=== PATIENT | female | born 1955 | race Caucasian/White ===

== ENCOUNTER → 2017-07-17 07:44 | Outpatient (CLI) | payer OTHER, SELFPAY ==
--- NOTE | 2017-07-17 07:47 | BI_ITS ---
MAMMOGRAPHY - BILATERAL SCREENING REASON FOR EXAM: Female, 61 years old. Routine annual screening examination. PERTINENT HISTORY: Mother with breast cancer. TECHNIQUE: Digital bilateral breast yemi (3D mammographic acquisition) in the CC and MLO projections. 2-D mediolateral oblique (MLO) and craniocaudad (CC) views of both breasts were obtained. CAD: Full Field Digital Mammography with Computer Added Detection was performed. COMPARISON: Comparison is made with prior study dated April 26, 2016 and March 04, 2015. FINDINGS: Breast Composition: There are scattered areas of fibroglandular density. There are no dominant masses or suspicious calcifications. No other significant abnormalities are identified. There has been no significant change since the prior study. BI/SCREENING MAMM (CAD), BILAT IMPRESSION: Stable bilateral screening mammogram. Yearly follow-up mammogram recommended. (A) ASSESSMENT CATEGORY: BIRADS Category 1: Negative. A letter regarding these results will be sent to the patient by the facility within 30 days. Approximately 10% of breast cancers are not detected by mammography. A normal mammogram should not delay biopsy of a clinically suspicious abnormality. [id number] Electronically Signed: Rico Finley MD at 9:13 EDT Tel [phone], Service support ,
== END ==
PROVIDERS: Family Provider Family Medicine; PCP Family Medicine; Visit Provider Specialist
DX: Z12.31 Encounter for screening mammogram for malignant neoplasm of breast (principal)
CPT/HCPCS: 77063; 77067

== ENCOUNTER → 2017-10-15 07:25 | Outpatient (CLI) | payer OTHER, SELFPAY ==
[2017-10-15 10:37] LABS: Estradiol 72.9 pg/mL; Free T3 5.9 pg/mL (2.18-3.98); Thyroid Stim Hormone (TSH) 0.09 uIU/mL (0.358-3.74)
[2017-10-16 11:19] LABS: DHEA Sulfate 52.9 ug/dL (29.4-220.5)
[2017-10-16 13:01] LABS: Progesterone Level 33.96 ng/mL (See Comment); Vitamin B12 1864 pg/mL (211-911); Vitamin D,25 Hydroxy 48.1 ng/mL (29.95-100.01)
== END ==
PROVIDERS: Family Provider Family Medicine; PCP Family Medicine; Visit Provider Obstetrics & Gynecology
DX: N95.8 Other specified menopausal and perimenopausal disorders (principal); E03.9 Hypothyroidism, unspecified; R53.83 Other fatigue
CPT/HCPCS: 36415; 82306; 82607; 82627; 82670; 84144; 84403; 84443; 84481; 82626

== ENCOUNTER → 2017-11-18 08:05 | Outpatient (CLI) | payer OTHER, SELFPAY ==
[2017-11-18 11:01] LABS: Free T3 2.9 pg/mL (2.18-3.98); Thyroid Stim Hormone (TSH) 0.25 uIU/mL (0.358-3.74)
[2017-11-19 10:20] LABS: DHEA Sulfate 64.5 ug/dL (29.4-220.5)
== END ==
PROVIDERS: Family Provider Family Medicine; PCP Family Medicine; Visit Provider Obstetrics & Gynecology
DX: R53.83 Other fatigue (principal); E03.9 Hypothyroidism, unspecified
CPT/HCPCS: 36415; 82627; 84443; 84481; 82626

== ENCOUNTER → 2018-07-16 07:49 | Outpatient (CLI) | payer OTHER, SELFPAY ==
[2018-07-16 10:40] LABS: Progesterone Level 31.39 ng/mL (See Comment); Vitamin D,25 Hydroxy 29.5 ng/mL (29.95-100.01)
[2018-07-16 10:42] LABS: Estradiol 77.1 pg/mL; Free T3 2.7 pg/mL (2.18-3.98); Thyroid Stim Hormone (TSH) 1.81 uIU/mL (0.358-3.74)
[2018-07-17 16:37] LABS: DHEA Sulfate 68.9 ug/dL (29.4-220.5)
== END ==
PROVIDERS: Family Provider Family Medicine; PCP Family Medicine; Referring Provider Specialist; Visit Provider Specialist
DX: R53.81 Other malaise (principal); E03.8 Other specified hypothyroidism; N95.1 Menopausal and female climacteric states
CPT/HCPCS: 36415; 82306; 82627; 82670; 84144; 84403; 84443; 84481; 82626

== ENCOUNTER → 2018-07-21 14:47 | Outpatient (CLI) | payer OTHER, SELFPAY ==
[2018-07-21 17:49] LABS: ALB/GLOB Ratio 1.2 RATIO (0.9-2.4); AST(SGOT) 35 U/L (15-37); Alanine Aminotransfer ALT/SGPT 49 U/L (13-56); Albumin, Serum 3.7 g/dL (3.2-5.0); Alkaline Phosphatase 69 U/L (45-117); Anion Gap 4 (5-15); BUN 19 mg/dL (7-18); BUN/Creat Ratio 17.3 RATIO (10-20); Calcium,Total 9.1 mg/dL (8.5-10.1); Chloride 105 mmol/L (98-107); EST Glomerular Filtration Rate 54 mL/min (>60); Est Glom Filt Rate - Afr Amer 65 mL/min (>60); Globulin 3.2 g/dL (2.2-4.2); Glucose 119 mg/dL (74-106); Lipase 165 U/L (73-393); Potassium 4.4 mmol/L (3.5-5.1); Protein, Total 6.9 g/dL (6.4-8.2); Sodium Level 137 mmol/L (136-145)
[2018-07-21 18:00] LABS: Absolute Lymphocyte Count 2.82 X10^3/ul (0.83-4.51); Absolute Neutrophil Count 4.9 X10^3/uL (2.0-7.7); Basophil# 0.03 X10^3/uL; Basophil% 0.4 % (0-1); Eosinophils% 1.2 % (0-5); Hematocrit 46.7 % (37-47); Hemoglobin 15.6 g/dl (12.0-15.0); Lymphocyte # 2.82 X10^3/ul (4.0); Lymphocyte % 34.7 % (19-41); Mean Corp Hgb Conc 33.4 g/gl (32-36); Mean Corpuscular Hgb 29.9 pg (27.0-32.0); Mean Corpuscular Volume 89.6 fL (81-99); Mean Platelet Vol. 10.4 fl (6.2-12.0); Monocyte% 3.7 % (0-10); Neutrophil # 4.87 X10^3/uL (2.7-7.7); Neutrophil % 59.9 % (47-70); POSITIVE COUNT NO; POSITIVE DIFFERENTIAL NO; POSITIVE MORPHOLOGY NO; Platelet Count 294 K/mm3 (150-450); RBC Distribution Width CV 13.8 % (11.6-14.6); RBC Distribution Width SD 45.4 fl (35.1-43.9); Red Blood Count 5.21 M/mm3 (4.2-5.4); White Blood Count 8.1 K/mm3 (4.4-11.0)
== END ==
PROVIDERS: Family Provider Family Medicine; PCP Family Medicine; Visit Provider Family Medicine
DX: R11.0 Nausea (principal); R53.83 Other fatigue
CPT/HCPCS: 36415; 80053; 83690; 85025

== ENCOUNTER → 2018-08-04 07:50 | Outpatient (CLI) | payer OTHER, SELFPAY ==
--- NOTE | 2018-08-04 07:52 | ECHOCS_ITS ---
Version 2 Reason For Study: SOB Procedure This was a 2D Doppler, Color Flow transthoracic echocardiogram. The study was technically difficult. Contrast injection was performed. Exam performed in department. Left Ventricle Normal LV size. Left ventricular systolic function is normal. The estimated ejection fraction is 55 %. Stage 1 diastolic dysfunction. No regional wall motion abnormalities noted. Right Ventricle Normal RV size. Normal systolic function. Atria Normal left atrium. Normal right atrium. Probable patent foramen ovale. Mitral Valve Normal mitral valve. Tricuspid Valve Normal tricuspid valve. Aortic Valve The aortic valve is not well visualized. Pulmonic Valve Normal pulmonic valve. Great Vessels Normal aortic root. The pulmonary artery is normal size. Normal inferior vena cava. Pericardium/Pleural No pericardial effusion. Medication 22 gauge I.V. with prn adaptor inserted into right arm. Diluted definity 3.5ml given slow IV push to enhance endocardial definition. Performed a rapid injection of agitated mix of 9 cc saline and 1cc air to assess for atrial septal defect. MMode/2D Measurements & Calculations LVIDd: 4.1 cm IVSd: 0.86 cm Ao root diam: 2.8 cm LVIDs: 2.9 cm LVPWd: 0.85 cm RVDd: 2.6 cm FS: 28.7 % LAV(MOD-bp): 31.8 ml EDV(MOD-sp4): 100.6 ml EDV(MOD-sp2): 80.9 ml LAV(MOD-bp) Indexed: 16.1 ml/m2 ESV(MOD-sp4): 50.6 ml EF(MOD-sp2): 54.7 % LAV(MOD-sp2): 45.2 ml EF(MOD-sp4): 49.7 % LAV(MOD-sp4): 20.6 ml SV(MOD-sp4): 50.0 ml SV(MOD-sp2): 44.3 ml LA A4 area: 10.8 cm2 LA dimension(2D): 2.8 cm RA A4 area: 9.3 cm2 Time Measurements MV dec time: 0.20 sec Doppler Measurements & Calculations MV E max tiago: 54.0 cm/sec Lat Peak E' Tiago: 8.3 cm/sec Med Peak E' Tiago: 9.6 cm/sec MV A max tiago: 80.1 cm/sec E/E' lat: 6.5 E/E' med: 5.7 MV E/A: 0.67 MV V2 max: 102.3 cm/sec Ao V2 max: 128.9 cm/sec LV V1 max: 91.8 cm/sec MV max P.2 mmHg Ao max P.6 mmHg LV V1 max P.4 mmHg MV V2 mean: 64.0 cm/sec MV mean P.8 mmHg MV V2 VTI: 16.9 cm MV P1/2t-pr_phl: 95.6 msec Interpretation Summary Normal LV size. Left ventricular systolic function is normal. The estimated ejection fraction is 55 %. Stage 1 diastolic dysfunction. Contrast injection was performed. Ordering Physician: GLORIA FARMER Referring Physician: GLORIA FARMER Performed By: Margarita Mantilla, MADDY, RVT
== END ==
PROVIDERS: Family Provider Family Medicine; PCP Family Medicine; Referring Provider Family Medicine; Visit Provider Family Medicine
DX: R06.00 Dyspnea, unspecified (principal); I51.7 Cardiomegaly; R06.02 Shortness of breath
CPT/HCPCS: 93306; Q9957; A4216; C8929

== ENCOUNTER → 2018-08-15 08:06 | Outpatient (CLI) | payer OTHER, SELFPAY ==
--- NOTE | 2018-08-15 08:08 | BI_ITS ---
MAMMOGRAPHY - BILATERAL SCREENING REASON FOR EXAM: Female, 63 years old. Routine annual screening examination. PERTINENT HISTORY: Mother with breast cancer. TECHNIQUE: Digital bilateral breast yemi (3D mammographic acquisition) in the CC and MLO projections. 2-D mediolateral oblique (MLO) and craniocaudad (CC) views of both breasts were obtained. CAD: Full Field Digital Mammography with Computer Added Detection was performed. COMPARISON: Comparison is made with prior examination dated July 17, 2017 and April 26, 2016. FINDINGS: Breast Composition: There are scattered areas of fibroglandular density. There are no dominant masses or suspicious calcifications. No other significant abnormalities are identified. There has been no significant change since the prior study. BI/SCREENING MAMM (CAD), BILAT IMPRESSION: Stable bilateral screening mammogram. Yearly follow-up mammogram recommended. (A) ASSESSMENT CATEGORY: BIRADS Category 2: Benign. A letter regarding these results will be sent to the patient by the facility within 30 days. Approximately 10% of breast cancers are not detected by mammography. A normal mammogram should not delay biopsy of a clinically suspicious abnormality. [id number] Electronically Signed: Rico Finley, at 10:00 EDT , Service support ,
== END ==
PROVIDERS: Family Provider Family Medicine; PCP Family Medicine; Referring Provider Specialist; Visit Provider Specialist
DX: Z12.31 Encounter for screening mammogram for malignant neoplasm of breast (principal)
CPT/HCPCS: 77063; 77067

== ENCOUNTER → 2018-10-09 08:13 | Outpatient (CLI) | payer OTHER, SELFPAY ==
--- NOTE | 2018-10-09 08:35 | BD_ITS ---
STUDY: DUAL ENERGY X-RAY ABSORPTIOMETRY / DXA REASON FOR EXAM: Female, 63 years old. The patient is postmenopausal. Loss of height. TECHNIQUE: Bone Mineral Density (BMD) measurements of lumbar spine and bilateral hips were obtained. COMPARISON: None. FINDINGS: Lumbar Spine (L1-L4): g/cm2 (1.179) / T-score (0.1) / Z-score (1.4) Findings are suggestive of normal bone density with a low fracture risk. Left Femur Total: g/cm2 (1.014) / T-score (0.1) / Z-score (1.0) Left Femoral Neck: g/cm2 (1.043) / T-score (0.0) / Z-score (1.3) Right Femur Total: g/cm2 (1.006) / T-score (0.0) / Z-score (1.0) Right Femoral Neck: g/cm2 (0.994) / T-score (-0.3) / Z-score (1.0) BD/Dexa Bone Density Study IMPRESSION: The patient is considered normal as outlined below according to World [employer] Organization (WHO) criteria with a low fracture risk. Reference Information: The T-score is the number of standard deviations above or below the standard which is normal for young adults at their peak bone mineral density. The World Health Organization (WHO) interprets the T-scores as follows: Above -1 Normal bone density Between -1 and -2.5 Osteopenia Equal to / or below -2.5 Osteoporosis As a practical clinical guideline, osteopenia may be graded as follows: Mild -1 through -1.5 Moderate -1.6 through -2.0 Severe -2.1 through -2.4 The Z-score is the number of standard deviations above or below age-matched controls. A Z-score of less than -1.5 would be considered abnormal. References: 1. NIH Osteoporosis and Related Bone Diseases http://www.osteo.org 2. International Society for Clinical Densitometry http://www.iscd.org 3. National Osteoporosis Foundation http://www.nof.org Electronically Signed: Rico Finley, at 10:14 EDT , Service support ,
== END ==
PROVIDERS: Family Provider Family Medicine; PCP Family Medicine; Referring Provider Family Medicine; Visit Provider Family Medicine
DX: R29.890 Loss of height (principal)
CPT/HCPCS: 77080

== ENCOUNTER → 2018-10-29 10:33 | Outpatient (CLI) | payer OTHER, SELFPAY ==
--- NOTE | 2018-10-29 10:38 | RAD_ITS ---
STUDY: X-RAY - LUMBAR SPINE REASON FOR EXAM: Female, 63 years old. Low back pain TECHNIQUE: 5 view(s) of the lumbar spine were obtained. COMPARISON: None FINDINGS: Normal lumbar lordosis. Mild levoscoliosis of the lower lumbar spine. There is a normal alignment of the vertebrae. There is multilevel endplate spondylosis of the lumbar vertebrae. There is multi-level degenerative disc disease with multi-level disc space narrowing. The soft tissue structures are unremarkable. RAD/L/S Spine Min 4 Views IMPRESSION: Mild levoscoliosis with degenerative disc disease. Electronically Signed: Elia Solano MD at 10:58 EDT Tel , Service support ,
== END ==
PROVIDERS: Family Provider Family Medicine; PCP Family Medicine; Referring Provider Family Medicine; Visit Provider Family Medicine
DX: M54.16 Radiculopathy, lumbar region (principal)
CPT/HCPCS: 72110

== ENCOUNTER → 2018-11-06 07:34 | Outpatient (CLI) | payer OTHER, SELFPAY ==
[2018-11-06 10:41] LABS: Free T3 2.3 pg/mL (2.18-3.98); T4 Free Direct 0.78 ng/dL (0.76-1.46); Thyroid Stim Hormone (TSH) 1.48 uIU/mL (0.358-3.74)
== END ==
PROVIDERS: Family Provider Family Medicine; PCP Family Medicine; Referring Provider Specialist; Visit Provider Specialist
DX: E02 Subclinical iodine-deficiency hypothyroidism (principal)
CPT/HCPCS: 36415; 84439; 84443; 84481

== ENCOUNTER → 2018-12-23 08:07 | Outpatient (CLI) | payer OTHER, SELFPAY ==
[2018-12-23 10:39] LABS: Estradiol 78.9 pg/mL; Free T3 5.7 pg/mL (2.18-3.98); Thyroid Stim Hormone (TSH) 0.28 uIU/mL (0.358-3.74)
[2018-12-23 10:54] LABS: Progesterone Level 32.36 ng/mL (See Comment)
== END ==
PROVIDERS: Family Provider Family Medicine; PCP Family Medicine; Referring Provider Obstetrics & Gynecology; Visit Provider Obstetrics & Gynecology
DX: E03.8 Other specified hypothyroidism (principal); N95.1 Menopausal and female climacteric states
CPT/HCPCS: 36415; 82670; 84144; 84403; 84443; 84481

== ENCOUNTER → 2019-03-19 08:17 | Outpatient (CLI) | payer OTHER, SELFPAY ==
[2019-03-21 13:29] LABS: Giardia Lamblia, Stool EIA Negative (Negative)
== END ==
PROVIDERS: Family Provider Family Medicine; PCP Family Medicine; Visit Provider Family Medicine
DX: K57.92 Diverticulitis of intestine, part unspecified, without perforation or abscess without bleeding (principal); R19.7 Diarrhea, unspecified
CPT/HCPCS: 82274; 83630; 87329; 87493; 87506

== ENCOUNTER → 2019-03-31 12:22 | Outpatient (CLI) | payer OTHER, SELFPAY ==
[2019-03-31 14:45] LABS: Free T3 3.1 pg/mL (2.18-3.98)
== END ==
PROVIDERS: Family Provider Family Medicine; PCP Family Medicine; Referring Provider Specialist; Visit Provider Specialist
DX: E03.8 Other specified hypothyroidism (principal)
CPT/HCPCS: 36415; 84481

== ENCOUNTER → 2019-04-03 16:01 | Outpatient (CLI) | payer OTHER, SELFPAY ==
[2019-04-03 17:43] LABS: Hemoglobin 15.1 g/dL (12.0-15.0); Mean Corp Hgb Conc 32.8 g/dL (32-36); Mean Corpuscular Hgb 29.6 pg (27.0-32.0); Mean Corpuscular Volume 90.2 fL (81-99); Mean Platelet Vol. 10.1 fl (6.2-12.0); Platelet Count 327 K/mm3 (150-450); RBC Distribution Width SD 46.5 fl (35.1-43.9); White Blood Count 9.3 K/mm3 (4.4-11.0)
[2019-04-03 18:07] LABS: Erythrocyte Sedimentation Rate 8 mm/hr (0-30)
[2019-04-06 16:07] LABS: Endomysial Antibody IgA Negative (Negative)
[2019-04-07 09:37] LABS: Immunoglobulin A 175 mg/dL (87-352); t-Transglutaminase IgA <2 U/mL (0-3)
== END ==
PROVIDERS: Family Provider Family Medicine; PCP Family Medicine; Referring Provider Internal Medicine Gastroenterology; Visit Provider Internal Medicine Gastroenterology
DX: R19.7 Diarrhea, unspecified (principal)
CPT/HCPCS: 36415; 82784; 83516; 85027; 85652; 86255

== ENCOUNTER → 2019-08-18 07:30 | Outpatient (CLI) | payer OTHER, SELFPAY ==
[2019-08-18 10:40] LABS: Anion Gap 8 (5-15); BUN 15 mg/dL (7-18); BUN/Creat Ratio 17.2 RATIO (10-20); Calcium,Total 8.8 mg/dL (8.5-10.1); Chloride 108 mmol/L (98-107); Creatinine, Serum 0.87 mg/dL (0.55-1.02); EST Glomerular Filtration Rate 70 mL/min (>60); Est Glom Filt Rate - Afr Amer 85 mL/min (>60); Glucose 90 mg/dL (74-106); Potassium 3.9 mmol/L (3.5-5.1); Sodium Level 141 mmol/L (136-145)
== END ==
PROVIDERS: PCP Family Medicine; Referring Provider Family Medicine; Visit Provider Family Medicine
DX: R33.9 Retention of urine, unspecified (principal)
CPT/HCPCS: 36415; 80048

== ENCOUNTER → 2019-08-27 07:51 | Outpatient (CLI) | payer OTHER, SELFPAY ==
--- NOTE | 2019-08-27 07:54 | US_ITS ---
STUDY: ABDOMINAL ULTRASOUND REASON FOR EXAM: Female, 64 years old. ABDOMINAL PAIN TECHNIQUE: Transabdominal ultrasound was performed with real-time and static sears scale imaging. TECHNICAL QUALITY: Adequate. COMPARISON: None. FINDINGS: Liver: The liver measures 15.9 cm. There is normal echogenicity of the liver. The bile ducts are within normal limits. There is hepatic color flow. The direction of portal flow is hepatopetal. There is no demonstrated mass lesion. Portal vein measurement: Gallbladder: Normal distended gallbladder. The gallbladder wall measures 3.0 mm. There is a negative sonographic Tracey''s sign. There is no pericholecystic fluid. There are no gallstones. Common Bile Duct (C.B.D.): The common bile duct measures 5.0 mm. Pancreas: Normal size of the head, body and tail of the pancreas. There is normal echogenicity of the pancreas. There is no demonstrated pancreatic mass or cyst. Spleen: Normal size of the spleen. The spleen measures 10.2 cm x 4.5 cm x 4.8 cm. Right Kidney: Normal size of the right kidney. The right kidney measures 10.1 cm x 5.5 cm x 4.5 cm. Normal renal cortex. The right cortex measures 1.5 cm. There is no demonstrated renal mass or cyst. There is no right hydronephrosis. Left Kidney: Normal size of the left kidney. The left kidney measures 10.2 cm x 4.3 cm x 5.5 cm. Normal renal cortex. The left cortex measures 1.9 cm. There is no demonstrated renal mass or cyst. There is no left hydronephrosis. Aorta: Unremarkable I.V.C.: The IVC is patent. There is no ascites. US/Abdomen Complete IMPRESSION: Normal abdominal ultrasound examination. Electronically Signed: Rico Finley, at 13:04 EDT , Service support ,
== END ==
PROVIDERS: PCP Family Medicine; Referring Provider Family Medicine; Visit Provider Family Medicine
DX: R10.9 Unspecified abdominal pain (principal)
CPT/HCPCS: 76700

== ENCOUNTER → 2020-02-03 15:37 | Outpatient (CLI) | payer OTHER, SELFPAY ==
--- NOTE | 2020-02-03 15:39 | BI_ITS ---
MAMMOGRAPHY - BILATERAL SCREENING REASON FOR EXAM: Female, 64 years old. Routine annual screening examination. PERTINENT HISTORY: Mother with breast cancer. TECHNIQUE: Digital bilateral breast vida (3D mammographic acquisition) in the CC and MLO projections. 2-D mediolateral oblique (MLO) and craniocaudad (CC) views of both breasts were obtained. CAD: Full Field Digital Mammography with Computer Added Detection was performed. COMPARISON: Comparison is made with prior study dated 08/15/2018 and 07/17/2017. FINDINGS: Breast Composition: There are scattered areas of fibroglandular density. There are no dominant masses or suspicious calcifications. Questionable focal area of architectural distortion in the upper lateral aspect of the right breast. The patient will be recalled for additional views including 90 degree lateral and compression spot views. No other significant abnormalities are identified. BI/SCREEN MAMM (CAD) W/VIDA BILAT IMPRESSION: Proximal focal area of architectural distortion in the upper outer aspect of the right breast as described. The patient will be recalled for additional views. Recall Side: Right Breast ASSESSMENT CATEGORY: BIRADS Category 0: Incomplete. Need additional imaging evaluation. A letter regarding these results will be sent to the patient by the facility within 30 days. Approximately 10% of breast cancers are not detected by mammography. A normal mammogram should not delay biopsy of a clinically suspicious abnormality. [id number] Electronically Signed: Rico Finley, at 8:26 EST , Service support ,
== END ==
PROVIDERS: PCP Family Medicine; Referring Provider Specialist; Visit Provider Specialist
DX: Z12.31 Encounter for screening mammogram for malignant neoplasm of breast (principal); Z80.3 Family history of malignant neoplasm of breast
CPT/HCPCS: 77063; 77067

== ENCOUNTER → 2020-02-10 14:20 | Outpatient (CLI) | payer OTHER, SELFPAY ==
--- NOTE | 2020-02-10 14:22 | BI_ITS ---
MAMMOGRAPHY - UNILATERAL DIAGNOSTIC: RIGHT BREAST REASON FOR EXAM: Female, 64 years old. Abnormal screening mammogram. PERTINENT HISTORY: Mother with breast cancer. TECHNIQUE: Compression magnification views of the right breast were obtained. CAD: Full Field Digital Mammography with Computer Added Detection was performed. COMPARISON: Comparison is made with prior mammogram dated 02/03/2020. FINDINGS: Breast Composition: There are scattered areas of fibroglandular density. Persistent focal area of architectural distortion in the upper lateral aspect of the right breast with possible tiny microcalcifications. Correlation with ultrasound is recommended. No other significant abnormalities are identified. BI/DIAG MAMM W/CAD, UNILAT IMPRESSION: Persistent architectural distortion in the upper lateral aspect of the right breast as described. Correlation with ultrasound is recommended. ASSESSMENT CATEGORY: BIRADS Category 0: Incomplete. Need additional imaging evaluation. A letter regarding these results will be sent to the patient by the facility within 30 days. Approximately 10% of breast cancers are not detected by mammography. A normal mammogram should not delay biopsy of a clinically suspicious abnormality. Electronically Signed: Rico Finley, at 15:18 EST , Service support ,
--- NOTE | 2020-02-10 14:24 | US_ITS ---
STUDY: ULTRASOUND BREAST - RIGHT REASON FOR EXAM: Female, 64 years old. Abnormal screening mammogram. TECHNIQUE: Axial and longitudinal images of the RIGHT breast were performed with a high resolution ultrasound transducer. # OF IMAGES: 40 COMPARISON: Comparison is made with prior mammogram dated 02/03/2020 and 02/10/2020. FINDINGS: RIGHT Breast: There is a 1 cm x 1.1 cm x 1 cm spiculated nodule at the 10 o''clock position of the breast at 3 cm from the nipple. A biopsy recommended. Incidental note is made of a 4 mm x 4 mm x 4 mm cyst adjacent to the spiculated nodule. US/Breast Limited Unilateral IMPRESSION: 1 cm x 1.1 cm x 1 cm spiculated nodularity at the 10 o''clock position of the breast at 3 cm from nipple. A biopsy is recommended. ASSESSMENT CATEGORY: BIRADS Category 5: Highly Suggestive of Malignancy - Appropriate Action Should Be Taken. A letter regarding these results will be sent to the patient by the facility within 30 days. Electronically Signed: Rico Finley, at 15:35 EST , Service support ,
== END ==
PROVIDERS: PCP Family Medicine; Referring Provider Specialist; Visit Provider Specialist
DX: R92.8 Other abnormal and inconclusive findings on diagnostic imaging of breast (principal); Z80.3 Family history of malignant neoplasm of breast
CPT/HCPCS: 76642; 77065

== ENCOUNTER → 2020-03-02 12:03 | Outpatient (CLI) | payer OTHER, SELFPAY ==
--- NOTE | 2020-03-02 | IMM_PTH ---
PATIENT: LAI WEST LOC: [facility] U#:[id number] AGE/SX: 69/F ROOM: RE03/02/[address]: Dr. Kain Khalil MD : 1955 BED: DIS: SPEC #: [id number] RECD: 03/03/20 13:19 STATUS: LIO RECharanjit #: [id number] JANEEN: 03/02/20 00:[address]: Kain Khalil DEPT: IMMUNOHISTOCHEMISTRY RECD BY: Sofia White ENTERED: 03/03/20 13:20 SP TYPE: IMMUNO OTHR DR: Dr. Eddie Chappell MD Tissues: A - Right breast, NOS B - Axilla, NOS Procedures: CALPONIN-1 (add) CK5-6 (add) CK7 (add) CK8 (add) CONNOLLY-2 (add) E-CAD (add) HER2 MARYAN (add) NC (add) Pankeratin (initial) P40 (add) ER (initial) PHYSICIAN & INSTITUTION [address] [address] SPECIMEN INFORMATION: Tissue Source: A - Right breast tissue, B - Right axillary tissue Clinical Info: Abnormal right mammogram Specimen Number: [id number] A & B CPT code: 71490 x2, 71731 x8, 11674 x3 METHODOLOGY: Deparaffinized sections of prefer/formalin-fixed tissue or PAP/DQ stained slides are incubated with monoclonal/polyclonal antibodies/oligonucleotide probes. Localization is made via biotin free immunoperoxidase method. Appropriate controls are performed and reacted as expected. Results on target cell population are indicated in the following table: RESULTS: ANTIBODY / CLONE RESULT Block A P53 (DO-7) positive, 3% Ki-67 (30-9) positive, 10% CK8 (93fqzuT45) positive CK5-6 (D5 & 1684) negative Calponin-1 (VO560T) negative P40 (BC28) negative E-Cad (ECH-6) positive CONNOLLY-2 (SP21) positive MORPHOMETRIC ANALYSIS ER (clone 6F11) >95%, strong intensity NC (clone 16/1E2) >95%, strong intensity Her-2Neu (clone CB11) 1+ Block B AE1-3 (AE1/AE3/PCK26) negative CK7 (OV-TL12/30) negative The prognostic test for HER2 is performed on formalin-fixed paraffin embedded tissue. A 3+ (positive) staining pattern is defined as intense, homogeneous, complete, circumferential membranous staining in >10% of contiguous tumor cells. A similar weak (2+) staining pattern is interpreted as equivocal. LONG follow-up testing is recommended for all equivocal cases. Positivity/negativity for ER/NC is reported if > or < 1% of the tumor cells are immuno- reactive, respectively. The ASCO/CAP criteria is used for scoring. Reference: Journal of Clinical Oncology, 2013; 31:8799-4928 & 2010; 16:6824-3406. Duration of fixation: 10 Hrs; Sample Adequate: Yes. These assays have not been validated on decalcified tissues. Results should be interpreted with caution given the likelihood of false negativity on decalcified specimens. These tests were developed and their performance characteristics determined by [facility]. They may not have been cleared or approved by the U.S. Food and Drug Administration. The FDA has determined that such clearance or approval is not necessary. The above immunohistochemical/dualISH markers are ordered and reviewed by the Pathologist. INTERPRETATION: A. Right breast tissue, core biopsy: Invasive ductal carcinoma. Positive for estrogen receptors (favorable prognostic indicator). Positive for progesterone receptors (favorable prognostic indicator). Negative for overexpression of QAF0bps. B. Right axillary tissue, core biopsy: No evidence of carcinoma. AM:william 03/04/20
--- NOTE | 2020-03-02 09:40 | BRBX_PTH ---
PATIENT: LAI WEST LOC: [facility] U#:[id number] AGE/SX: 69/F ROOM: RE03/02/[address]: Dr. Kain Khalil MD : 1955 BED: DIS: SPEC #: [id number] RECD: 03/02/20 11:09 STATUS: LIO TANO #: [id number] JANEEN: 03/02/20 09:[address]: Kain Khalil DEPT: SURGICAL PATHOLOGY RECD BY: Carmen Roque ENTERED: 03/02/20 12:43 SP TYPE: BREAST BX OTHR DR: Dr. Eddie Chappell MD Tissues: A - Breast, NOS B - Axilla, NOS Procedures: Surgery Specimen Level IV HEADER OPERATION: Ultrasound-guided right breast biopsy and right axilla PRE-OP DIAGNOSIS: Abnormal right mammogram TISSUE SUBMITTED: A - Right breast tissue, B - Right axillary tissue FIXATION TIME: 10 hours MICROSCOPIC DIAGNOSIS A. Right breast, core biopsy: Invasive ductal carcinoma with the following characteristics: Maximal length - 5 millimeters Nuclear grade - 1/3 Other finding- ductal carcinoma insitu, nuclear grade 1/3, focal. See comment. B. Right axillary tissue, core biopsy: Benign fibrofatty tissue and lymphoid tissue. See comment. AM:william 03/03/20 COMMENT A. Immunohistochemistry ([id number]) supports the above diagnosis. ER/WA/Tdz1onj studies are being performed on sections of tumor and the results from this study will be reported separately ([id number]). B. Immunohistochemistry ([id number]) supports the above diagnosis. Case has been reviewed in consultation with Dr. Callahan who concurs with the above diagnosis. IDC:SJ MICROSCOPIC DESCRIPTION Slides are reviewed. GROSS DESCRIPTION A - Received in fixative is one container labeled with the patient's name and designated right breast. The specimen consists of two cores of light kaur soft tissue measuring in aggregate 1 x 0.3 x 0.1 cm. The specimen is totally submitted in one cassette. B - Received in fixative is one container labeled with the patient's name and designated right axilla. The specimen consists of multiple irregular and elongated fragments of light kaur soft tissue that in aggregate measure 1.5 x 0.2 x 0.1 cm. The specimen is totally submitted in one cassette. / AM:william 03/02/20 TC:0 CPT: 65814 x2
[2020-03-02 10:07] VITALS: BMI 31.4
== END ==
PROVIDERS: PCP Family Medicine; Visit Provider Surgery
DX: R92.8 Other abnormal and inconclusive findings on diagnostic imaging of breast (principal)
CPT/HCPCS: 88305; 88341; 88342

== ENCOUNTER 2020-03-10 08:15 | Day surgery (SDC) | payer OTHER, SELFPAY ==
[2020-03-07 09:51] VITALS: BMI 31.4
[2020-03-10] VITALS (9 sets, daily range): BP systolic 143–173; BP diastolic 77–94; PULSE 87–101; RESP 14–16; TEMP 36.6–37.4; O2SAT 96–100; BMI 31.8
--- NOTE | 2020-03-10 | AXNB_PTH ---
PATIENT: LAI WEST LOC: [facility] [place] U#:[id number] AGE/SX: 64/F ROOM: RE03/10/[address]: Dr. Kain Khalil MD : 1955 BED: DIS: 03/10/2020 SPEC #: [id number] RECD: 03/10/20 12:25 STATUS: LIO RECharanjit #: [id number] JANEEN: 03/10/20 00:[address]: Kain Khalil DEPT: SURGICAL PATHOLOGY RECD BY: Sofia Whiet ENTERED: 03/10/20 13:04 SP TYPE: AX NODE BX OTHR DR: Dr. Eddie Chappell MD Tissues: A - Axillary lymph node, NOS B - Axillary lymph node, NOS C - Right breast, NOS D - Right breast, NOS Procedures: Frozen Section (charge) Frozen Section [facility] Surgery Specimen Level IV Surgery Specimen Level V HEADER OPERATION: [place] lymph node biopsy, right partial mastectomy PRE-OP DIAGNOSIS: Malignant neoplasm of central portion of right breast, ER positive TISSUE SUBMITTED: A - Right breast sentinel lymph node, FS 1217, B - Right breast sentinel lymph node, FS 1221, C - Right breast mass, long suture - lateral, short suture - superior, D - New medial margin, stitch ryder new margin FROZEN SECTION DIAGNOSIS A. Right breast sentinel lymph node, biopsy: One lymph node, negative for metastatic carcinoma. B. Right breast sentinel lymph node, biopsy: One lymph node, negative for metastatic carcinoma. PORTER:william 03/10/20 MICROSCOPIC DIAGNOSIS A. Right breast sentinel lymph node, biopsy: One lymph node, negative for metastatic carcinoma. Changes consistent with previous biopsy site. See comment. B. Right breast sentinel lymph node, biopsy: One lymph node, negative for metastatic carcinoma. See comment. C. Right breast mass, lumpectomy with needle localization: Invasive ductal carcinoma. Ductal carcinoma in situ. Fibrocystic changes, adenosis and intraductal hyperplasia with focal atypia. Changes consistent with previous biopsy site. D. New medial margin: Fibrocystic changes, adenosis and intraductal hyperplasia without atypia. Focal microcalcifications. Negative for carcinoma. PORTER:william 03/15/20 COMMENT A & B. The lymph nodes is negative for metastatic carcinoma on multiple H & E levels and immunohisto-chemical stains for cytokeratins ([id number]). BREAST CANCER SUMMARY Procedure - excision (lumpectomy with needle localization) Specimen laterality - right Invasive tumor: Tumor site - central portion of right breast, as per clinical information. Tumor size - greatest dimension 1.2 cm Additional dimension - 0.8 x 0.8 cm. See comment below. Histologic type - invasive ductal carcinoma, not otherwise specified. Histologic grade (Igo grade): Glandular/tubular differentiation score - 1 Nuclear pleomorphism score - 2 Mitotic count score - 1 Overall grade - grade 1 (score of 4) Tumor focality - single focus of invasive carcinoma. Ductal Carcinoma In Situ - present Extent of intraductal component (EIC). Site (extent) of DCIS - DCIS comprise about 40% of the total tumor volume. Number of blocks with DCIS - 3 Number of blocks examined - 16 (specimen A & B) Architectural pattern - cribriform Nuclear grade - 1-2 Necrosis - not identified Lobular carcinoma in situ - no lobular carcinoma in situ in the specimen. Tumor extension: Skin - not present Nipple - not applicable Skeletal muscle - no skeletal muscle is present. Margins - invasive carcinoma and ductal carcinoma in situ are 0.5 cm away from the closest lateral margin. Regional Lymph Nodes: Total number of lymph nodes examined - 2 Number of sentinel lymph nodes examined - 2 Number of lymph nodes with macrometastases, micrometastases and isolated tumor cells - 0 Treatment effect - no known presurgical therapy. Lymphvascular invasion - not identified Dermal lymphvascular invasion - not applicable Additional Pathologic Findings - fibrocystic changes, adenosis and intraductal hyperplasia with atypia. Changes consistent with previous biopsy site. Ancillary Studies: Previously performed on same tumor ([id number] / [id number]) ER: positive (>95%, strong intensity) SD: positive (>95%, strong intensity) Tbt9jal: negative (1+) Microcalcifications - present in ductal carcinoma in situ and non-neoplastic tissue. Clinical History - Please make reference to previous specimen ([id number]) right breast, core biopsy with diagnosis of invasive ductal carcinoma and right axillary tissue, core biopsy with diagnosis of benign fibrofatty tissue and lymphoid tissue. Radiologic findings - abnormal right mammogram Pathologic Stage: pT1c pN0(sn) pMx The above summary is in compliance with [employer] [place] [employer] (CAP) Cancer Protocols Checklist and [place] Joint Committee on Cancer (AJCC), Staging Manual, 8th Ed. C. The microscopic measurement of tumor is larger than the gross measurement of the tumor. Atypical ductal hyperplasia is noted in the area of invasive carcinoma and ductal carcinoma in situ. Case has been reviewed in consultation with Dr. Peralta who concurs with the above diagnosis. IDC:AM MICROSCOPIC DESCRIPTION Slides are reviewed. GROSS DESCRIPTION A - Received fresh for frozen section diagnosis labeled with the patient's name is a specimen designated right breast sentinel lymph node. The specimen consists of a piece of adipose tissue containing a nodule consistent with lymph node measuring 3 x 2 x 1.5 cm. The lymph node measures 3 cm in greatest dimension and is bisected. The lymph node is submitted in entirety for frozen section diagnosis in two cassettes. Sections are submitted after additional fixation. / : 03/10/20 B - Received fresh for frozen section diagnosis labeled with the patient's name is a specimen designated right breast sentinel lymph node. The specimen consists of a piece of adipose tissue containing a nodule consistent with lymph node measuring 3 x 2.5 x 0.8 cm. The lymph node measures 2.5 cm in greatest dimension and is bisected. The lymph node is submitted in entirety for frozen section diagnosis in two cassettes. Sections are submitted after additional fixation. / : 03/10/20 C - Received fresh for intraoperative consultation labeled with the patient's name is a specimen designated right breast mass. The specimen consists of a piece of fibroadipose tissue with needle localization measuring 6.5 x 5.5 x 2.5 cm. The specimen is oriented as follows: long suture - lateral, short suture - superior. The specimen is inked as follows: anterior - yellow, posterior - black, superior - blue, inferior - green, medial - red and lateral - orange. Serial sections reveal a kaur, indurated mass with central biopsy cavity measuring 0.8 x 0.8 x 0.8 cm. This mass is 0.5 cm away from the closest lateral margin. This information is conveyed to the surgeon intraoperatively. Sections of the rest of the specimen reveal kaur-yellow adipose cut surfaces mixed with scant fibrous areas. Print Developer Automatic sections are submitted in 12 cassettes as follows: 1 & 2 - perpendicular margins, 3-7 - tumor, entirely submitted, 8-12 - Print Developer Automatic sections adjacent to and away from the tumor. Sections are submitted after additional fixation. / SJ:iwlliam 03/11/20 D - Received in fixative is one container labeled with the patient's name and designated new medial margin, stitch ryder new margin. The specimen consists of a piece of yellow adipose tissue measuring 4 x 2.5 x 1 cm. The new margin is oriented by a suture. It is inked black. The opposite margin is inked blue. The entire specimen is submitted in four cassettes. / SJ:william 03/11/20 TC:0 CPT: 18397, 56279 x3, 40597 x2, 38763 x2, 55173 ADDENDUM ADDENDUM ADDENDUM ADDENDUM ADDENDUM ADDENDUM ADDENDUM ADDENDUM 04/26/2020 10:04 ADDENDUM 04/26/2020 10:04 ADDENDUM 04/26/2020 10:04 ADDENDUM 04/26/2020 10:04 ADDENDUM 04/26/2020 10:04 An order for Oncotype testing was received from Dr. Stuart. This necessitated case review, block and slide selection by pathologist at [facility]. Breast Cancer Recurrence Score = 16 Results of the complete Oncotype testing ([employer] report) are viewable in EMR under: Reports - Pathology - Lab Pathology Report, Scanned.
--- NOTE | 2020-03-10 | IMM_PTH ---
PATIENT: LAI WEST [place] [facility] [place][id number] AGE/SX: 64/F ROOM: RE03/10/[address]: Dr. Kain Khalil MD : 1955 BED: DIS: 03/10/2020 SPEC #: [id number] RECD: 03/15/20 11:39 STATUS: LIO REQ #: [id number] JANEEN: 03/10/20 00:[address]: Kain Khalil DEPT: IMMUNOHISTOCHEMISTRY RECD BY: Sofia White ENTERED: 03/15/20 11:41 SP TYPE: IMMUNO OTHR DR: Dr. Eddie Chappell MD Tissues: A - Axillary lymph node, NOS B - Axillary lymph node, NOS Procedures: CK7 (add) Pankeratin (initial) Pankeratin (add) PHYSICIAN & INSTITUTION [place] [id number] SPECIMEN INFORMATION: Tissue Source: A - Right breast sentinel lymph node, B - Right breast sentinel lymph node Clinical Info: Malignant neoplasm of central portion of right breast, ER positive Specimen Number: [id number] A1, A2, B1, B2 CPT code: 80190 x2, 27685 x6 METHODOLOGY: Deparaffinized sections of prefer/formalin-fixed tissue or PAP/DQ stained slides are incubated with monoclonal/polyclonal antibodies/oligonucleotide probes. Localization is made via biotin free immunoperoxidase method. Appropriate controls are performed and reacted as expected. Results on target cell population are indicated in the following table: RESULTS: ANTIBODY / CLONE RESULT Block A1 AE1-3 (AE1/AE3/PCK26) negative CK7 (OV-TL12/30) negative Block A2 AE1-3 (AE1/AE3/PCK26) negative CK7 (OV-TL12/30) negative Block B1 AE1-3 (AE1/AE3/PCK26) negative CK7 (OV-TL12/30) negative Block B2 AE1-3 (AE1/AE3/PCK26) negative CK7 (OV-TL12/30) negative These tests were developed and their performance characteristics determined by [facility]. They may not have been cleared or approved by the U.S. Food and Drug Administration. The FDA has determined that such clearance or approval is not necessary. The above immunohistochemical/dualISH markers are ordered and reviewed by the Pathologist. INTERPRETATION: A. Right breast sentinel lymph node, biopsy: One lymph node, negative for metastatic carcinoma. B. Right breast sentinel lymph node, biopsy: One lymph node, negative for metastatic carcinoma. SJ:william 03/15/20
--- NOTE | 2020-03-10 07:34 | HP_ITS ---
Intake Vital Signs 03/07/20 Height 5 ft 6 in 03/07/20 Weight: 195 lb 03/07/20 BP 174/106 H 03/07/20 Blood Pressure Location Rt brachial 03/07/20 Position Sitting 03/07/20 Respiration 18 03/07/20 Pulse 97 03/07/20 Pulse Source Monitor 03/07/20 Temp 98.1 F 03/07/20 Temp Source Temporal 03/07/20 Pulse Oximetry (%) 97 03/07/20 Oxygen Delivery Method room air Intake Visit Reasons: ONE WEEK F/U RIGHT BREAST BIOPSY 03/02 Chief Complaint: discuss breast biopsy Seamer Panty Hose Required: No Accompanied by: Is patient in pain?: No Allergies cephalexin [From Keflex] Allergy (Severe, Verified 03/07/20 09:56) Diarrhea amoxicillin Allergy (Mild, Verified 03/07/20 09:56) Diarrhea acetaminophen [From Percocet] Allergy (Verified 03/07/20 09:56) Rash cefazolin Allergy (Verified 03/07/20 09:56) Unknown oxycodone HCl [From Percocet] Allergy (Verified 03/07/20 09:56) Rash prednisone Allergy (Verified 03/07/20 09:56) Shortness of breath Medications Estrogren Cream 0.1 ml TOPICAL DAILY 01/10/14 [History Confirmed 03/07/20] Progesterone 200 mg PO DAILY 01/10/14 [History Confirmed 03/07/20] Baicalin/Catechin [Limbrel 250 mg Capsule] 250 mg PO DAILY 09/23/15 [History Confirmed 03/07/20] Fluticasone 0.05% [Flonase Nasal [place]] 2 spray NASAL DAILY 09/23/15 [History Confirmed 03/07/20] Multivitamins,Therapeutic [Multivitamin] 1 tab PO DAILY 09/23/15 [History Confirmed 03/07/20] Potassium (Otc) [Potassium Otc] 99 mg PO DAILY 09/23/15 [History Confirmed 03/07/20] Prasterone (Dhea)/Calcium Carb [Dhea 10 mg Tablet] 2 ea PO DAILY 09/23/15 [History Confirmed 03/07/20] Saccharomyces boulardii 250 mg capsule 250 mg PO BID 03/02/20 [History Confirmed 03/07/20] amlodipine 5 mg tablet 5 mg PO DAILY PRN tab 03/02/20 [History Confirmed 03/07/20] nabumetone 500 mg tablet 500 mg PO tab 03/02/20 [History Confirmed 03/07/20] thyroid (pork) 90 mg tablet 100 mg PO DAILY tab 03/02/20 [History Confirmed 03/07/20] PFSH Medical History (Updated 03/07/20 @ 09:53 by Rebeca Maurice) Family history of breast cancer (Acute) Anxiety (Acute) Diarrhea (Acute) IBS (irritable bowel syndrome) (Acute) Hypertension (Chronic) Thyroid disease (Acute) Breast mass, right (Acute) Abnormal ultrasound of breast (Acute) Abnormal mammogram of right breast (Acute) Breast cancer, right (Acute) Surgical History (Updated 03/07/20 @ 09:54 by Rebeca Maurice) Hx of colonoscopy (Acute) Hx of fusion of cervical spine (Acute) Hx of cataract extraction (Acute) History of excision of pilonidal cyst (Acute) History of tonsillectomy and adenoidectomy (Acute) Hx of detached retina repair (Acute) History of right breast biopsy (Acute ~03/02/20) Family History Mother Breast cancer, Onset Age: 65 Social History (Updated 03/07/20 @ 10:[address] Kain Khalil MD) Smoking Status: Never smoker second hand exposure: No alcohol intake: never substance use type: does not use caffeine: Yes what type of physical activity do you participate in: walking, bicycling frequency: 5-6 times per week HPI HPI HPI: LAI WEST, is a 64 F who presents to the office today for HPI HPI Surgical H&P: Yes HPI: LAI WEST, is a 64 F who presents to the office today for right breast cancer. The patient recently had core biopsy which showed invasive ductal carcinoma. Patient has not had any issues after her breast biopsy. ROS General General: No weight change, appetite, fatigue, colon cancer, breast cancer or weakness HEENT HEENT: Yes eye surgery; no difficulty swallowing, eye injury, swollen glands or hoarseness Endo Endocrine: Yes thyroid disease; no diabetes mellitus, thyroid cancer, Hair loss, heat intolerance or cold intolerance Skin Skin: No rash or changing moles Breast Breast: Yes right breast lump, abnormal mammogram and abnormal US; no left breast lump, nipple discharge, breast pain or breast enlargement Musc Musculoskeletal: No back problems, arthritis, rheumatoid arthritis, gout or joint pain Cardio Cardiovascular: Yes high blood pressure; no murmur, pacemaker, heart disease, atrial fibrillation, heart attack, heart stent, palpitations, shortness of breat with exertion or chest pain Psych Psychiatric: No depression, anxiety or hearing voices Resp Respiratory: No shortness of breath, No sleep apnea, No cough, No COPD, No asthma, No emphysema, No wheezing Gastro Gastrointestinal: No abdominal pain, No nausea or vomiting, Yes diarrhea, No constipation, No blood in stool, No acid reflux, No hemorrhoids, No ulcers, No gallbladder problem, No black,tarry stools Guevara Hematologic: No blood thinners, No blood disorders, No bleeding, No anemia, No blood clots Neuro Neurologic: No weakness Exam Const General: cooperative Orientation: alert, oriented x3 Chest Breast Palpation: No nipple discharge Resp Effort & Inspection: normal respiratory effort Auscultation: clear to auscultation bilaterally Cardio Rate: regular rate Rhythm: regular rhythm Heart Sounds: no murmurs GI Inspection: non-distended Palpation: soft, nontender Assessment & Plan Problems 1. Malignant neoplasm of central portion of right breast in female, estrogen receptor positive C50.111; Z17.0 Plan The patient has an invasive right breast ductal carcinoma. ER/VT positive. I discussed partial mastectomy with sentinel lymph node biopsy and possible axillary dissection with her. I also discussed stereotactic wire localization.I discussed the procedure in detail as well as the risks of bleeding, infection, nerve injury, lymphedema, skin necrosis. The patient understands the risks and is well to proceed. I also discussed postoperative hormonal Suppression therapy as well as radiation after surgery. All questions were answered sufficiently. I did discuss that if there were any positive lymph nodes I would proceed with axillary dissection if there were grossly positive nodes. Patient did have axillary lymph node biopsy in the office which was normal lymphatic tissue. Kain Khalil MD Pager: [facility] [address] [place] [address], [address] [place] [address] Office: Coding Level of Care Code Off vis,est,level 3 Diagnoses Malignant neoplasm of central portion of right breast in female, estrogen receptor positive C50.111; Z17.0 ??Breast location: central portion of breast ??Estrogen receptor status: positive ??Patient sex: female ??Laterality: right I have re-examined the patient. There are no clinical changes since date of exam.
--- NOTE | 2020-03-10 08:30 | NM_ITS ---
PROCEDURE: NUCLEAR MEDICINE Injection Sophia Node - RIGHT breast(s). REASON FOR EXAM: Female, 64 years old. Right breast cancer. TECHNIQUE: Sophia node localization using radionuclide methods of the RIGHT breast(s) was performed following subcutaneous administration of 1.1 mCi of of sulfur colloid Tc-99m. FINDINGS: 1.1 mCi of technetium labeled sulfur colloid was injected subcutaneously in 4 equal aliquots in the lateral midportion of the right breast. NM/Lymph Node Injection Only IMPRESSION: Subcutaneous injection of 1.1 mCi of technetium labeled sulfur colloid at the biopsy site. Electronically Signed: Rico Finley, at 13:10 EST , Service support ,
[2020-03-10] MEDS: Lactated Ringers 1,000 ML 100 ML IV ×2 (08:54→12:16)
--- NOTE | 2020-03-10 10:30 | BI_ITS ---
SURGICAL BREAST SPECIMEN RADIOGRAPH CLINICAL: Document presence of tissue clip marker in biopsy specimen. FINDINGS: Specimen shows presence of tissue clip marker. Electronically Signed: Rico Finley, at 8:05 EST , Service support , BI/Breast Biopsy Specimen
[2020-03-10] MEDS: 0.9% Saline Lock 10 ML Syringe IV (11:48)
[2020-03-10] MEDS: Isosulfan Blue 1% 5 ML Vial (11:48)
[2020-03-10] MEDS: Bupiv/Epi 0.25% 30 ML Vial (12:52)
--- NOTE | 2020-03-10 13:26 | PCM.OPRPT ---
Problem List (1) Breast cancer, right Status: Acute Qualifiers: Breast location: upper outer quadrant of breast Estrogen receptor status: positive Patient sex: female Qualified Code(s): C50.411 - Malignant neoplasm of upper-outer quadrant of right female breast; Z17.0 - Estrogen receptor positive status [ER+] Report of Operation Date of Procedure: 03/10/20 Pre-Operative Diagnosis: Right breast cancer Post-Operative Diagnosis: Same Surgery/Procedure Performed:: 1. Stereotactic guided wire localization. 2. Right sentinel lymph node biopsy. 3. Right partial mastectomy Specimen's removed: 1. Right breast mass. 2. New medial margin. 3. Right sentinel lymph node Description of Procedure: Patient was brought to the stereotactic biopsy room and placed in the stereotactic table. Mammographic views were obtained and the clip and mass were localized. Stereotactic images were obtained and the mass was localized and programmed to the computer. The breast was prepped in the normal sterile fashion. The skin was anesthetized and the wire needle was placed into the breast. The stereotactic images were then obtained and the needle was removed leaving the wire in place and it was trimmed. Mammographic views were obtained. The patient was then brought to the operating room and general anesthesia was induced. 5 cc of Lymphazurin along with 5 cc of saline were injected in the retroareolar space and massaged into the breast. Next the right breast and drape was prepped in the usual sterile fashion. An axillary incision was anesthetized and then made with a scalpel. It was deepened to the axillary fascia which was incised. There was a large lymph node which was biopsied previously that was removed and sent for pathology. There was also a radioactive and blue lymph node which was removed with clips and sharp dissection. The 10-second count was 1400 and there was no residual radioactive activity in the axilla. The axilla was irrigated and hemostasis was obtained using clips. The axilla is packed with a wet gauze. Attention was then paid to the right breast. An incision was marked and prepped with local anesthetic. A skin incision was then made and the wire was brought into the incision. The skin incision did include the prior biopsy site. Next flaps were raised using electrocautery and the mass was grasped and excised using electrocautery. The cavity was irrigated and suctioned dry and hemostasis was obtained using electrocautery. The mass was marked and sent for pathology and mammography. The mammography showed that the mass included the entire wire and clip. Margins were negative and the lymph nodes were negative based on frozen pathology. Next the axillary fascia was closed with interrupted 3-0 Vicryl sutures and the skin was closed with running 4-0 Monocryl suture. The breast incision was closed with interrupted 3-0 Vicryl suture as well as a running 4-0 Monocryl suture. Glue was applied to both incisions. Supportive bra was placed on the patient, she was awoken and taken to PACU in stable condition. - Admit VTE Documentation VTE Mechan Device Prophylaxis: SCD's
--- NOTE | 2020-03-10 13:32 | DCINST_ITS ---
Discharge Diet: No Restrictions Discharge Activity: May Not Drive - for 2-3 days or while taking narcotic pain meds. May shower in (days): 1 Lifting Restrictions: 10 pounds for 1 week. Call your doctor if your incision/area has: Continuous Slow Oozing, Sudden In creased Bleeding, Increased Pain/ Swelling, Increased Redness, Foul Smelling Discharge, Swelling at the incision site Call your doctor if you observe: Fever of 101 or Higher Suture Line Care: Avoid Pulling/Pushing, Avoid Pinching/Bending Cleanse incision/area with: Soap & Water Additional Dressing/Incision Instructions:: Remove bulky dressing tomorrow. May shower over incisions tomorrow Allergies/Adverse Reactions: Allergies cephalexin [From Keflex] Allergy (Severe, Verified 03/10/20 08:40) Diarrhea amoxicillin Allergy (Mild, Verified 03/10/20 08:40) Diarrhea cefazolin Allergy (Verified 03/10/20 08:40) Unknown oxycodone HCl [From Percocet] Allergy (Verified 03/10/20 08:40) Rash prednisone Allergy (Verified 03/10/20 08:40) Shortness of breath Medications to take at Discharge Progesterone 200 mg PO DAILY 01/10/14 Multivitamins,Therapeutic [Multivitamin] 1 tab PO DAILY 09/23/15 Potassium (Otc) [Potassium Otc] 99 mg PO DAILY 09/23/15 Prasterone (Dhea)/Calcium Carb [Dhea 10 mg Tablet] 1 ea PO DAILY 09/23/15 amlodipine 5 mg tablet 5 mg PO DAILY PRN tab 03/02/20 nabumetone 500 mg tablet 500 mg PO PRN PRN tab 03/02/20 thyroid (pork) 90 mg tablet 100 mg PO DAILY tab 03/02/20 Calcium Carbonate [Elemental Calcium] 600 mg PO DAILY 03/07/20 Cholecalciferol (Vitamin D3) [Vitamin D3] 25 mcg PO DAILY 03/07/20 Cyanocobalamin (Vitamin B-12) [Vitamin B-12] 5,000 mcg PO DAILY 03/07/20 Iodoral 1 cap PO QODAY 03/07/20 L.acidoph,Paracasei, B.lactis [Probiotic] 1 ea PO DAILY 03/07/20 Turmeric Root Extract [Turmeric Curcumin] 500 mg PO DAILY 03/07/20 Hydrocodone/Acetaminophen [Hydrocodon-Acetaminophen 5-325] 1 - 2 tab PO Q6H PRN PRN 5 Days #30 tablet 03/10/20 The following prescriptions were given: Hydrocodone/Acetaminophen [Hydrocodon-Acetaminophen 5-325] 1 - 2 tab PO Q6H PRN PRN 5 Days #30 tablet PRN Reason: Pain Score 4-01/08 Transmission Status: Sent to [facility] Primary Care Physician: Eddie Chappell MD [Primary Care Provider] - Please Follow Up With: Kain Khalil MD When: Please call to schedule 2 week follow up appointment. [phone]
== END 2020-03-10 15:36 | disposition home or self-care (01) ==
LOC: SDC 08:16 → AC 08:16
PROVIDERS: PCP Family Medicine; Referring Provider Surgery; Visit Provider Surgery
PROC: (CPT 19301; principal; 2020-03-10 11:15)
DX: C50.411 Malignant neoplasm of upper-outer quadrant of right female breast (principal); Z17.0 Estrogen receptor positive status [ER+]; I10 Essential (primary) hypertension; Z79.1 Long term (current) use of non-steroidal anti-inflammatories (NSAID); Z85.3 Personal history of malignant neoplasm of breast; Z88.1 Allergy status to other antibiotic agents; Z88.5 Allergy status to narcotic agent
CPT/HCPCS: 19301; 38525; 19281; 38792; 76098; 87426; 88305; 88307; 88331; 88332; 88341; 88342; A9541; C9803; J7120; A4216; J2405; Q9968

== ENCOUNTER → 2020-03-22 12:30 | Outpatient (CLI) | payer OTHER, SELFPAY ==
[2020-03-22 13:49] LABS: Progesterone Level 11.18 ng/mL (See Comment)
[2020-03-22 14:02] LABS: Estradiol 52.5 pg/mL; Free T3 3.4 pg/mL (2.18-3.98); Iron Binding Capacity,Total 358 ug/dL (250-450); Thyroid Stim Hormone (TSH) 0.66 uIU/mL (0.358-3.74)
== END ==
PROVIDERS: PCP Family Medicine; Referring Provider Specialist; Visit Provider Specialist
DX: E03.9 Hypothyroidism, unspecified (principal); L64.9 Androgenic alopecia, unspecified; E27.9 Disorder of adrenal gland, unspecified; N95.1 Menopausal and female climacteric states
CPT/HCPCS: 36415; 82627; 82670; 83550; 84144; 84403; 84443; 84481; 82626

== ENCOUNTER 2020-03-22 20:36 | Emergency (ER) | payer OTHER, SELFPAY ==
--- NOTE | 2020-03-22 21:44 | PCM.PN.BLA ---
Progress Note Patient came to the ER after saying that her right breast incision which previously had a evacuation of a hematoma today in office was bleeding. At the time patient was not applying pressure. Patient was instructed to apply pressure and come to the ER. Upon coming to the ER there is no obvious bleeding. The nylon sutures were removed after the area was prepped with Betadine. Local anesthesia of 1% lidocaine was used at the skin. Saline was used to irrigate the wound cavity and this was suctioned along with some small amount of clot. Wound cavity had some small areas diffusely of irritation that were very minimally oozing. Did use Surgifoam a large and small piece for these areas. Pressure was also held for 10 minutes. Hemostasis was assured. 4-0 nylon interrupted sutures were placed at the skin. Pressure dressing with four 4 x 4 gauze and ABD pad and Rudi wrap were used to make pressure dressing. Patient tolerated procedure well. Instructed patient to continue the pressure dressing for 1 day, then okay to change but would continue for several days including at night having pressure to this area. Patient does have a follow-up appoint with Dr. Khalil on Saturday which she will keep. Patient will let us know if there is any changes in the meantime. Patient no further questions this time. Patient left the ER in stable condition.
[2020-03-22] MEDS: Lidocaine 1% (20 ml mdv) 20 ML Vial INFILT (21:46)
[2020-03-22 23:12] VITALS: TEMP 36.4; BMI 28.6
--- NOTE | 2020-03-22 23:14 | ED.RN ---
patient was sent in by Dr. Navarro for post op bleeding. Patient was seen by surgeon only.
== END 2020-03-22 22:00 | disposition home or self-care (01) ==
PROVIDERS: Emergency Provider Surgery; PCP Family Medicine
DX: T81.89XA Other complications of procedures, not elsewhere classified, initial encounter (principal); Y83.8 Other surgical procedures as the cause of abnormal reaction of the patient, or of later complication, without mention of misadventure at the time of the procedure; Y92.9 Unspecified place or not applicable
CPT/HCPCS: 99282

== ENCOUNTER 2020-03-24 14:29 | Observation (INO) | payer OTHER, SELFPAY ==
[2020-03-24] VITALS (11 sets, daily range): BP systolic 125–169; BP diastolic 67–83; PULSE 92–111; RESP 15–188; TEMP 36.1–37.8; O2SAT 93–100; BMI 31.9
--- NOTE | 2020-03-24 15:42 | ED.VIS.GEN ---
History of Present Illness Chief Complaint: Other, Pain/Inj Detail of Chief Complaint: Bleeding from surgical site Informant: Patient Current Severity: Moderate Maximum Severity: Moderate Narrative: Patient presents with surgical wound bleeding. Patient initially had lumpectomy to the right breast performed on the by Dr. Khalil. She was seen in the office on the for follow-up and noted to have a large hematoma. There is evacuated and dressing was placed. Patient was seen in the ER later that night by Dr. Navarro for continued bleeding. She was able to open the wound, please Surgifoam, and applied pressure dressing. Patient states that when she removed the outer dressing today she noted significant bleeding again. Pressure was applied to the area and she presented to the emergency room. - Past Medical History (1) Breast cancer, right Status: Acute (2) IBS (irritable bowel syndrome) Status: Chronic (3) Thyroid disease Status: Chronic (4) Hypertension Status: Chronic Past Medical History - Allergies and Home Meds Allergies/Adverse Reactions: Allergies cephalexin [From Keflex] Allergy (Severe, Verified 03/24/20 14:39) Diarrhea amoxicillin Allergy (Mild, Verified 03/24/20 14:39) Diarrhea cefazolin Allergy (Verified 03/24/20 14:39) Unknown oxycodone HCl [From Percocet] Allergy (Verified 03/24/20 14:39) Rash prednisone Allergy (Verified 03/24/20 14:39) Shortness of breath Primary Care Physician: Eddie Chappell MD [Primary Care Provider] - Prior records reviewed: Yes Lives: With Family Smoking Status: Never smoker Review of Systems General: Denies: Chills, Fever Eyes: Denies: Visual changes - bilaterally ENT: Denies: Bilateral ear pain Cardiovascular: Reports: - - Right breast pain at surgical site, but no mid chest pain.. Denies: Chest pain Respiratory: Denies: Dyspnea Gastrointestinal: Denies: Abdominal pain, Nausea, Vomiting, Diarrhea Skin: Reports: Wounds Neurological: Denies: Headache Hematologic: Denies: Easy bruising, Easy bleeding Allergy: Denies: Uticaria Physical Exam Vital Signs/Narrative: Vital Signs Temp Pulse Resp BP Pulse Ox 03/24/20 15:26 98.9 F 03/24/20 14:30 97 F L 92 15 148/67 H 100 Inital Vital Signs reviewed: Yes General: Well nourished, Well developed Head: Normocephalic ENT: Moist mucous membranes Neck: Supple Cardiovascular: Regular rate, Regular rhythm Respiratory: No distress, CTA bilaterally Abdomen: Soft, Nontender Skin: - - Surgical incision with sutures intact to the right upper outer breast. Bleeding is noted from the superior aspect of the incision. Neurological: Alert, Oriented x3 Psychological: Normal affect Diagnostic/Tx/Re-eval - Medical Decision Making Blood was expressed from the wound and attempts to evacuate any underlying hematoma. 2 pieces of Surgifoam were placed followed by gauze pads quartered and pressure dressing. After approximately 15 minutes wound was rechecked and she has already bled into the lower layer of the Surgifoam. I spoke with Dr. Rouse. He will be in to see the patient anticipating he will likely take her to the OR for further exploration and evaluation of the wound. We will start a Hep-Lock at this time and draw a CBC. ED Disposition - Plan for ED Patient: Disposition: Acute Care Hospital [facility] Diagnosis: Postoperative bleeding from incision Referrals: Eddie Chappell MD [Primary Care Provider] -
[2020-03-24 15:53] LABS: Absolute Lymphocyte Count 2.38 X10^3/uL (0.83-4.51); Absolute Neutrophil Count 9.4 X10^3/uL (2.0-7.7); Basophil# 0.06 X10^3/uL; Basophil% 0.5 % (0-1); Eosinophil# 0.13 X10^3/uL; Hematocrit 41.4 % (37-47); Hemoglobin 14.4 g/dL (12.0-15.0); Lymphocyte # 2.38 X10^3/ul (4.0); Lymphocyte % 18.3 % (19-41); Mean Corp Hgb Conc 34.8 g/dL (32-36); Mean Corpuscular Hgb 31.2 pg (27.0-32.0); Mean Corpuscular Volume 89.6 fL (81-99); Mean Platelet Vol. 9.7 fl (6.2-12.0); Monocyte# 1.02 X10^3/uL; Monocyte% 7.9 % (0-10); NRBC Flagged by Analyzer 0 % (0-5); Neutrophil # 9.35 X10^3/uL (2.7-7.7); Neutrophil % 71.9 % (47-70); Platelet Count 424 K/mm3 (150-450); RBC Distribution Width CV 13.5 % (11.6-14.6); Red Blood Count 4.62 M/mm3 (4.2-5.4)
--- NOTE | 2020-03-24 16:01 | PCM.HP.STD ---
Problem List (1) Postoperative bleeding from incision Status: Acute History of Present Illness Date of Admission: 03/24/20 The patient is a 64 year old F presents with surgical wound bleeding. Patient initially had lumpectomy to the right breast performed on the by Dr. Khalil. She was seen in the office on the for follow-up and noted to have a large hematoma. There is evacuated and dressing was placed. Patient was seen in the ER later that night by Dr. Navarro for continued bleeding. She was able to open the wound, please Surgifoam, and applied pressure dressing. Patient states that when she removed the outer dressing today she noted significant bleeding again. Pressure was applied to the area and she presented to the emergency room. Past Medical History Past Medical History (Chronic Problems): Chronic Problems (Last Reviewed 03/22/20 @ 12:05 by Zainab Sharpe) IBS (irritable bowel syndrome) (Chronic) Hypertension (Chronic) Thyroid disease (Chronic) Medical History: Medical History (Last Reviewed 03/24/20 @ 16:[address] Wesley Rouse MD) Breast cancer, right (Acute) C50.911 Family history of breast cancer (Acute) Z80.3 Anxiety (Acute) F41.9 Diarrhea (Acute) R19.7 IBS (irritable bowel syndrome) (Chronic) K58.9 Hypertension (Chronic) I10 Thyroid disease (Chronic) E07.9 Breast mass, right (Acute) N63.10 Abnormal ultrasound of breast (Acute) R92.8 Abnormal mammogram of right breast (Acute) R92.8 Allergies cephalexin [From Keflex] Allergy (Severe, Verified 03/24/20 14:39) Diarrhea amoxicillin Allergy (Mild, Verified 03/24/20 14:39) Diarrhea cefazolin Allergy (Verified 03/24/20 14:39) Unknown oxycodone HCl [From Percocet] Allergy (Verified 03/24/20 14:39) Rash prednisone Allergy (Verified 03/24/20 14:39) Shortness of breath Home Medications: Ambulatory Orders Medication Instructions Recorded Progesterone 200 mg PO DAILY 01/10/14 Multivitamins,Therapeutic 1 tab PO DAILY 09/23/15 [Multivitamin] Potassium (Otc) [Potassium Otc] 99 mg PO DAILY 09/23/15 Prasterone (Dhea)/Calcium Carb 1 ea PO DAILY 09/23/15 [Dhea 10 mg Tablet] amlodipine 5 mg tablet 5 mg PO DAILY PRN tab 03/02/20 nabumetone 500 mg tablet 500 mg PO PRN PRN tab 03/02/20 thyroid (pork) 90 mg tablet 100 mg PO DAILY tab 03/02/20 Calcium Carbonate [Elemental 600 mg PO DAILY 03/07/20 Calcium] Cholecalciferol (Vitamin D3) 25 mcg PO DAILY 03/07/20 [Vitamin D3] Cyanocobalamin (Vitamin B-12) 5,000 mcg PO DAILY 03/07/20 [Vitamin B-12] Iodoral 1 cap PO QODAY 03/07/20 L.acidoph,Paracasei, B.lactis 1 ea PO DAILY 03/07/20 [Probiotic] Turmeric Root Extract [Turmeric 500 mg PO DAILY 03/07/20 Curcumin] amoxicillin 875 mg-potassium 1 tab PO BID #20 tab 03/22/20 clavulanate 125 mg tablet hydrocodone 5 mg-acetaminophen 325 1 tab PO Q6H PRN #10 tab 03/22/20 mg tablet Surgical History: Surgical History (Last Reviewed 03/24/20 @ 16:[address] Wesley Rouse MD) History of lumpectomy of right breast (Acute) Z98.890 03/10/20 History of right breast biopsy (Acute) Onset Date: ~03/02/20 Z98.890 Hx of colonoscopy (Acute) Z98.890 04/2019 Hx of fusion of cervical spine (Acute) Z98.1 Hx of cataract extraction (Acute) Z98.49 Bilateral History of excision of pilonidal cyst (Acute) Z98.890 1979 History of tonsillectomy and adenoidectomy (Acute) Z98.890 Hx of detached retina repair (Acute) Z98.890, Z86.69 X4- Left eye Lives: With Family Smoking Status: Never smoker Tobacco Use: Non-smoker Review of Systems Constitutional: Denies: Chills, Fever, Weight Change Cardiovascular: Denies: Chest Pain, Chest Pressure, Chest Tightness, Palpitations Respiratory: Denies: Cough, Hemoptysis, Shortness of breath at rest, Shortness of breath upon exertion, Wheezing VTE Information - Inpt Only VTE Present on Admission: No VTE Mechan Device Prophylaxis: SCD's VTE Pharm Prophylaxis ordered?: No Reason prophylaxis not ordered:: Treatment Not Indicated Patient Problems: Active and Suspected Problems (Last Reviewed 03/22/20 @ 12:05 by Zainab Sharpe) Postoperative bleeding from incision (Acute) Breast cancer, right (Acute) - Physical Exam Vitals/I&O's: Vital Signs Temp Pulse Resp BP Pulse Ox 98.9 F 92 15 148/67 H 100 03/24/20 15:26 03/24/20 14:30 03/24/20 14:30 03/24/20 14:30 03/24/20 14:30 Oxygen Delivery Method Room Air Weight: 198 lb Body Mass Index (BMI) 31.9 General: Alert, Oriented x3 Lungs: Clear to auscultation Cardiovascular: Regular rate, Regular Rhythm, No murmurs Abdomen: Bowel Sounds Present, Soft, Non Tender, Non-Distended Skin: Incision - Incision in the right upper quadrant of her breast has 2 simple sutures in it and Gelfoam on it as I pushed on the sensation more blood came out. Laboratory Results 03/24/20 15:35: WBC 13.0 H, RBC 4.62, Hgb 14.4, Hct 41.4, MCV 89.6, MCH 31.2, MCHC 34.8, RDW Std Deviation 44.0 H, RDW Coeff of Jackson 13.5, Plt Count 424, MPV 9.7, Immature Gran % (Auto) 0.400, Neut % (Auto) 71.9 H, Lymph % (Auto) 18.3 L, [place] % (Auto) 7.9, Eos % (Auto) 1.0, Baso % (Auto) 0.5, Absolute Neuts (auto) 9.4 H, Absolute Lymphs (auto) 2.38, Nucleated RBC % 0 Current Medications Cefazolin Sodium () 1 gm in 50 mls @ 100 mls/hr IV X1 ONE Stop: 03/24/20 16:16 Assessment/Plan All Active Problems (Last Reviewed 03/22/20 @ 12:05 by Zainab Sharpe) Postoperative bleeding from incision (Acute) History of lumpectomy of right breast (Acute) Breast cancer, right (Acute) History of right breast biopsy (Acute ~03/02/20) Breast cancer, right (Acute) Hx of colonoscopy (Acute) Hx of fusion of cervical spine (Acute) Hx of cataract extraction (Acute) History of excision of pilonidal cyst (Acute) History of tonsillectomy and adenoidectomy (Acute) Family history of breast cancer (Acute) Anxiety (Acute) Diarrhea (Acute) Hx of detached retina repair (Acute) Breast mass, right (Acute) Abnormal ultrasound of breast (Acute) Abnormal mammogram of right breast (Acute) Going to take her to surgery open up her wound irrigated out identify any bleeding in either clip it or use electrocautery not sure if I am going to leave the wound open or from going to close it. We will keep her overnight. Patient understands that she could still have postoperative bleeding even after the surgery. Blood clots heart attacks pneumonia strokes are also risk.
[2020-03-24] MEDS: Cefazolin 1 GM/50 ML BAG IV (16:08)
--- NOTE | 2020-03-24 17:40 | PCM.OPRPT ---
Problem List (1) Postoperative bleeding from incision Status: Acute Report of Operation Date of Procedure: 03/24/20 Pre-Operative Diagnosis: Postoperative bleeding from breast incision Post-Operative Diagnosis: Same Surgery/Procedure Performed:: Evacuation of hematoma and control of bleeding from right breast incision Type of Anesthesia:: General Anesthesiologist: Terry Hernandez Drains: 15 round Denis-Garnett Estimated Blood Loss (mL): 25 cc Description of Procedure: Patient was brought into the operating room. Placed in the supine position. Under excellent general endotracheal ovation right breast was sterilely prepped and draped in usual fashion. I removed her 2 previous 3-0 nylon incisions entered into the breast cavity removed numerous pieces of Gelfoam irrigated out the wound. I lengthened the incision medially. I started you some electrocautery but it was very clear that this was not the appropriate anticoagulation method. I obtained the argon beam clinical haematologist. Over several minutes there were numerous areas that were oozing particularly deep lateral near the pectoralis major muscle as well as several deep areas medially. This took a little bit of time to look at all the areas use the argon beam clinical haematologist then irrigate out the area hold some pressure. And I repeated this step numerous times. Once I thought that I had good hemostasis I placed some Ozzie into the wound. Held some gentle pressure for a little while. I did not see anything else oozy. I placed a 15 round Denis-Garnett drain through a stab incision. This was laterally and I brought the drain out and put it deep into the wound. I was going to try to close the subcu but it was just too hard and was not pliable and it was not going to be amendable to this and I thought leaving the drain in would be the more appropriate thing to do. I did do deep dermal stitches with 3-0 Vicryl. And the skin was brought together with interrupted 4-0 nylon. Sterile dressings were applied and the patient tolerated the procedure well. - Admit VTE Documentation VTE Present on Admission: No VTE Mechan Device Prophylaxis: SCD's VTE Pharm Prophylaxis ordered?: No Reason prophylaxis not ordered:: Treatment Not Indicated [id number]: [id number] Drainage of breast lesion
[2020-03-24 18:13] LABS: Prothrombin Time (Protime)PT. 13.1 SECONDS (11.7-14.9)
[2020-03-24] MEDS: Lactated Ringers 1,000 ML 65 ML IV (19:45)
[2020-03-24] MEDS: Acetaminophen 325 MG Tablet 650 MG PO (19:49)
[2020-03-25] VITALS: BP 128/70; PULSE 95; RESP 18; TEMP 36.6; O2SAT 98
[2020-03-25] MEDS: Ibuprofen 400 MG Tablet 800 MG PO (00:15)
[2020-03-25 04:01] VITALS: BP 132/70; PULSE 91; RESP 16; TEMP 36.6; O2SAT 96
[2020-03-25] MEDS: Lactated Ringers 1,000 ML 65 ML IV (04:05)
[2020-03-25] MEDS: Acetaminophen 325 MG Tablet 650 MG PO (04:09)
--- NOTE | 2020-03-25 09:00 | DCINST_ITS ---
Discharge Diet: No Restrictions Discharge Activity: May Not Drive - for 2-3 days or while taking narcotic pain meds. May shower in (days): 1 Lifting Restrictions: 10 pounds for 1 week. Call your doctor if your incision/area has: Continuous Slow Oozing, Sudden In creased Bleeding Call your doctor if you observe: Fever of 101 or Higher Suture Line Care: Avoid Pulling/Pushing, Avoid Pinching/Bending Remove Dressing in (days):: 1 - Remove bulky dressing tomorrow. May leave any opsite dressing for 3-4 days. Keep dressing in place until your follow-up appointment. Additional Dressing/Incision Instructions:: Remove bulky dressing tomorrow. May leave any opsite dressing for 3-4 days. Keep dressing in place until your follow-up appointment. Allergies/Adverse Reactions: Allergies cephalexin [From Keflex] Allergy (Severe, Verified 03/24/20 14:39) Diarrhea amoxicillin Allergy (Mild, Verified 03/24/20 14:39) Diarrhea cefazolin Allergy (Verified 03/24/20 14:39) Unknown oxycodone HCl [From Percocet] Allergy (Verified 03/24/20 14:39) Rash prednisone Allergy (Verified 03/24/20 14:39) Shortness of breath Medications to take at Discharge Progesterone 200 mg PO DAILY 01/10/14 Multivitamins,Therapeutic [Multivitamin] 1 tab PO DAILY 09/23/15 Potassium (Otc) [Potassium Otc] 99 mg PO DAILY 09/23/15 Prasterone (Dhea)/Calcium Carb [Dhea 10 mg Tablet] 1 ea PO DAILY 09/23/15 amlodipine 5 mg tablet 5 mg PO DAILY PRN tab 03/02/20 nabumetone 500 mg tablet 500 mg PO PRN PRN tab 03/02/20 thyroid (pork) 90 mg tablet 100 mg PO DAILY tab 03/02/20 Calcium Carbonate [Elemental Calcium] 600 mg PO DAILY 03/07/20 Cholecalciferol (Vitamin D3) [Vitamin D3] 25 mcg PO DAILY 03/07/20 Cyanocobalamin (Vitamin B-12) [Vitamin B-12] 5,000 mcg PO DAILY 03/07/20 Iodoral 1 cap PO QODAY 03/07/20 L.acidoph,Paracasei, B.lactis [Probiotic] 1 ea PO DAILY 03/07/20 Turmeric Root Extract [Turmeric Curcumin] 500 mg PO DAILY 03/07/20 amoxicillin 875 mg-potassium clavulanate 125 mg tablet 1 tab PO BID #20 tab 03/22/20 hydrocodone 5 mg-acetaminophen 325 mg tablet 1 tab PO Q6H PRN #10 tab 03/22/20 Primary Care Physician: Eddie Chappell MD [Primary Care Provider] -
[2020-03-25 09:40] VITALS: BP 138/74; PULSE 93; RESP 16; TEMP 37; O2SAT 96
== END 2020-03-25 10:10 | disposition home or self-care (01) ==
LOC: ED 15:49 → SDC 15:55 → AC 15:57 → MS3 03-28 08:01
PROVIDERS: Admitting Provider Surgery; Emergency Provider Emergency Medicine; PCP Family Medicine; Visit Provider Surgery
PROC: (CPT 21501; principal; 2020-03-24 17:00)
DX: L76.22 Postprocedural hemorrhage of skin and subcutaneous tissue following other procedure (principal); I10 Essential (primary) hypertension; K58.9 Irritable bowel syndrome, unspecified; E07.9 Disorder of thyroid, unspecified; C50.911 Malignant neoplasm of unspecified site of right female breast; Z79.899 Other long term (current) drug therapy
CPT/HCPCS: 00400; 21501; 85025; 85610; 96365; 99218; 99251; 99282; J7030; J7120; A4216; G0378; G0463; J2405

== ENCOUNTER → 2020-10-18 10:16 | Outpatient (CLI) | payer OTHER, SELFPAY ==
[2020-03-24 19:04] VITALS: BMI 31.9
--- NOTE | 2020-10-18 10:25 | BD_ITS ---
STUDY: DUAL ENERGY X-RAY ABSORPTIOMETRY / DXA REASON FOR EXAM: Female, 65 years old. Z780. Patient is postmenopausal. TECHNIQUE: Bone Mineral Density (BMD) measurements of lumbar spine and bilateral hips were obtained. COMPARISON: Comparison is made with prior study dated 10/09/2018. FINDINGS: Lumbar Spine (L1-L4): g/cm2 (0.960) / T-score (-0.5) / Z-score (1.1) Findings are suggestive of normal bone density with a low fracture risk. Left Femur Total: g/cm2 (0.888) / T-score (-0.4) / Z-score (0.7) Left Femoral Neck: g/cm2 (0.775) / T-score (-0.7) / Z-score (0.8) Right Femur Total: g/cm2 (0.913) / T-score (-0.2) / Z-score (0.9) Right Femoral Neck: g/cm2 (0.748) / T-score (-0.9) / Z-score (0.5) The T-Scores on the most recent prior examination were: Lumbar Spine (L1-L4): There has been worsening of bone density since the previous examination. Left Femur Total: which represents a worsening of 6.3%. Right Femur Total: which represents a worsening of 2.8%. BD/Dexa Bone Density Study IMPRESSION: The patient is considered normal as outlined below according to World An[employer] Organization (WHO) criteria with a low fracture risk. There has been worsening of bone density since the previous examination. Reference Information: The T-score is the number of standard deviations above or below the standard which is normal for young adults at their peak bone mineral density. The World Health Organization (WHO) interprets the T-scores as follows: Above -1 Normal bone density Between -1 and -2.5 Osteopenia Equal to / or below -2.5 Osteoporosis As a practical clinical guideline, osteopenia may be graded as follows: Mild -1 through -1.5 Moderate -1.6 through -2.0 Severe -2.1 through -2.4 The Z-score is the number of standard deviations above or below age-matched controls. A Z-score of less than -1.5 would be considered abnormal. References: 1. NIH Osteoporosis and Related Bone Diseases www osteo.org 2. International Society for Clinical Densitometry www iscd.org 3. National Osteoporosis Foundation www nof.org Electronically Signed: Rico Finley MD at 15:21 EDT , Service support ,
== END ==
PROVIDERS: PCP Family Medicine; Referring Provider Nurse Practitioner; Visit Provider Nurse Practitioner
DX: C50.411 Malignant neoplasm of upper-outer quadrant of right female breast (principal); Z17.0 Estrogen receptor positive status [ER+]; Z78.0 Asymptomatic menopausal state; Z79.811 Long term (current) use of aromatase inhibitors
CPT/HCPCS: 77080

== ENCOUNTER 2020-11-18 12:41 | Emergency (ER) | payer OTHER, SELFPAY ==
[2020-11-18 12:42] VITALS: BP 190/94; PULSE 96; RESP 18; TEMP 35.9; O2SAT 99; BMI 31.4
[2020-11-18 13:14] LABS: Absolute Lymphocyte Count 2.28 X10^3/uL (0.83-4.51); Absolute Neutrophil Count 4.5 X10^3/uL (2.0-7.7); Basophil# 0.05 X10^3/uL; Basophil% 0.7 % (0-1); Eosinophil# 0.08 X10^3/uL; Eosinophils% 1.1 % (0-5); Hemoglobin 16.2 g/dL (12.0-15.0); Lymphocyte # 2.28 X10^3/ul (0.83-4.51); Lymphocyte % 31.1 % (19-41); Mean Corp Hgb Conc 33.1 g/dL (32-36); Mean Corpuscular Hgb 28.9 pg (27.0-32.0); Mean Corpuscular Volume 87.5 fL (81-99); Mean Platelet Vol. 9.7 fl (6.2-12.0); Monocyte# 0.39 X10^3/uL; Monocyte% 5.3 % (0-10); NRBC Flagged by Analyzer 0 % (0-5); Neutrophil # 4.51 X10^3/uL (2.7-7.7); Neutrophil % 61.5 % (47-70); Platelet Count 303 K/mm3 (150-450); RBC Distribution Width CV 13.6 % (11.6-14.6); RBC Distribution Width SD 43.5 fl (35.1-43.9); White Blood Count 7.3 K/mm3 (4.4-11.0)
[2020-11-18 13:26] LABS: Anion Gap 5 (5-15); BUN 14 mg/dL (7-18); BUN/Creat Ratio 13.9 RATIO (10-20); Calcium,Total 10.2 mg/dL (8.5-10.1); Chloride 106 mmol/L (98-107); Creatinine, Serum 1.01 mg/dL (0.55-1.02); EST Glomerular Filtration Rate 59 mL/min (>60); Est Glom Filt Rate - Afr Amer 71 mL/min (>60); Estimated Creatinine Clearance 53.37 ml/min; Glucose 99 mg/dL (74-106); Potassium 4.4 mmol/L (3.5-5.1); Sodium Level 140 mmol/L (136-145)
[2020-11-18 13:29] LABS: Mucous, Urine 0 SEEN /hpf (<or=2+); Red Blood Cells-Urine 0 SEEN /hpf (0-5); White Blood Cells 0 SEEN /hpf (0-5)
[2020-11-18 13:31] LABS: Color, Urine Yellow (Yellow); Glucose, Dipstick Normal (Normal); Ketone-Dipstick Negative (Negative); Leukocyte Esterase-Dipstick Negative /ul (Negative); Nitrite-Dipstick Negative (Negative); Occult Blood-Urine Negative /ul (Negative); Protein-Dipstick Negative (Negative); Urine Bilirubin Dipstick Negative (Negative); Urine Clarity Clear (Clear); Urine Urobilinogen Normal (Normal)
[2020-11-18 13:37] LABS: Bacteria RARE /hpf (None Seen); Squamous Epithelial Cells - UA 0-5 SEEN /hpf (5-10)
--- NOTE | 2020-11-18 13:37 | CT_ITS ---
STUDY: CT ABDOMEN AND PELVIS WITH CONTRAST REASON FOR EXAM: Female, 65 years old. RUQ pain/epigastric. Eval gallbladder pancreas RADIATION DOSAGE (If Supplied By Facility): CTDIvol = ( 16.05 ) mGy, DLP = ( 969.63 ) mGycm TECHNIQUE: Transaxial images were obtained from the dome of the diaphragm to the symphysis pubis without oral contrast. IV 100mL Isovue-300 was administered. Sagittal and coronal images were reconstructed. Individualized dose optimization techniques were used for this CT. COMPARISON: Comparison is made with prior examination dated 10/06/2015. FINDINGS: The visualized lung bases are unremarkable. The visualized portions of the heart are within normal limits. Normal liver. Normal gallbladder and extrahepatic biliary system. Normal spleen. Normal pancreas. Normal bilateral adrenal glands. Normal right kidney. Normal left kidney. Normal visualized stomach. Normal small intestine. Normal colon. The appendix is visualized and appears normal. Normal abdominal aorta. Normal inferior vena cava. Normal retroperitoneum. Normal urinary bladder. Normal abdominal wall. There are degenerative changes of the visualized lumbar spine. CT/Abdomen/Pelvis W IV Cont ONLY IMPRESSION: Normal enhanced CT of the abdomen and pelvis. Electronically Signed: Rico Finley MD at 14:12 EDT , Service support ,
[2020-11-18] MEDS: Mag Hydrox/Al Hydrox/Simeth 30 ML UDC PO (13:44)
[2020-11-18 13:59] LABS: AST(SGOT) 35 U/L (15-37); Alanine Aminotransfer ALT/SGPT 54 U/L (13-56); Albumin, Serum 3.9 g/dL (3.2-5.0); Alkaline Phosphatase 101 U/L (45-117); Bilirubin, Direct 0.14 mg/dL (0.00-0.30); Globulin 4.1 g/dL (2.2-4.2); Lipase 103 U/L (73-393)
--- NOTE | 2020-11-18 14:12 | EDS_ITS ---
HPI History of Present Illness Chief Complaint: Abd Pain Informant: patient Narrative Narrative: Patient is a 65-year-old female who presents to the emergency department for epigastric abdominal pain. It initially started on Saturday. She has had this before a few years prior. She describes the pain as severe and stabbing. No radiation to the back. No chest pain or shortness of breath. It seems to be worse at nighttime and also after eating. She has been taking a lot of Tums which have not been giving any relief. No previous abdominal surgeries. No nausea or vomiting. No change in moving her bowels. She denies any urinary symptoms. [facility] Medical History Abnormal mammogram of right breast Abnormal ultrasound of breast Anxiety Breast cancer, right Breast mass, right Diarrhea Family history of breast cancer Hematoma of right breast Hypertension IBS (irritable bowel syndrome) Postoperative bleeding from incision Thyroid disease Home Medications Progesterone 200 mg PO DAILY 01/10/14 [History Last Taken Unknown] multivitamin 1 tab PO DAILY 09/23/15 [History Last Taken Unknown] potassium 99 mg PO DAILY 09/23/15 [History Last Taken Unknown] prasterone (dhea)-calcium carb 1 ea PO DAILY 09/23/15 [History Last Taken Unknown] amlodipine 5 mg tablet 5 mg PO DAILY PRN tab 03/02/20 [History Last Taken 03/10/20] nabumetone 500 mg tablet 500 mg PO PRN PRN tab 03/02/20 [History Last Taken Unknown] thyroid (pork) 90 mg tablet 100 mg PO DAILY tab 03/02/20 [History Last Taken Unknown] Iodoral 1 cap PO QODAY 03/07/20 [History Last Taken Unknown] L.acidoph, paracasei,B. lactis 1 ea PO DAILY 03/07/20 [History Last Taken Unknown] calcium carbonate 600 mg PO DAILY 03/07/20 [History Last Taken Unknown] cholecalciferol (vitamin D3) 25 mcg PO DAILY 03/07/20 [History Last Taken Unknown] cyanocobalamin (vitamin B-12) 5,000 mcg PO DAILY 03/07/20 [History Last Taken Unknown] turmeric root extract 500 mg PO DAILY 03/07/20 [History Last Taken Unknown] hydrocodone-acetaminophen 5-325mg 5mg-325mg 1 tab PO Q6H PRN #10 tab 03/22/20 [Rx Last Taken Unknown] pantoprazole [Protonix] 40 mg PO DAILY #30 tab 11/18/20 [Rx Last Taken Unknown] Allergy/AdvReac Type Severity Reaction Status Date / Time cephalexin [From Keflex] Allergy Severe Diarrhea Verified 11/18/20 12:44 amoxicillin Allergy Mild Diarrhea Verified 11/18/20 12:44 cefazolin Allergy Unknown Verified 11/18/20 12:44 oxycodone HCl [From Percocet] Allergy Rash Verified 11/18/20 12:44 prednisone Allergy Shortness Verified 11/18/20 12:44 of breath Family History Mother Breast cancer, Onset Age: 65 Surgical History History of excision of pilonidal cyst History of lumpectomy of right breast History of right breast biopsy (~03/02/20) History of tonsillectomy and adenoidectomy Hx of cataract extraction Hx of colonoscopy Hx of detached retina repair Hx of fusion of cervical spine Social History Smoking Status: Never smoker second hand exposure: No alcohol intake: never substance use type: does not use caffeine: Yes what type of physical activity do you participate in: walking and bicycling frequency: 5-6 times per week ROS ROS ED Constitutional Constitutional ED: Denies chills or fever(s) Eyes Eyes: Denies change in vision ENT ENT ED: Denies epistaxis or rhinorrhea Cardiovascular Cardiovascular: Denies chest pain or palpitations Respiratory/Chest Respiratory/Chest: Denies cough, dyspnea or dyspnea on exertion Gastrointestinal Gastrointestinal: Reports abdominal pain; Denies diarrhea, nausea or vomiting Genitourinary Genitourinary ED: Denies dysuria, hematuria or urinary frequency Musculoskeletal Musculoskeletal: Denies back pain or neck pain Integumentary Denies rash Neurologic Neurologic: Denies dizziness, headache(s) or weakness EXAM Physical Exam Const Vital Signs: 11/18/20 12:42 Temperature 96.7 F L Temperature Source Temporal Pulse Rate 96 Respiratory Rate 18 Blood Pressure 190/94 H Blood Pressure Mean 126 Pulse Ox 99 Oxygen Delivery Method Room Air Positive well nourished and well developed General Appearance ED: well developed and NAD HEENT Reports normocephalic and head/scalp atraumatic Eyes PERRL and EOMs intact bilaterally Neck supple Chest Wall inspection of chest normal Resp normal respiratory effort and clear to auscultation bilaterally Auscultation: Negative for rales, rhonchi or wheezes Cardio regular rate, regular rhythm and no murmurs GI normal to inspection, nondistended, normoactive bowel sounds GI Narrative: Tenderness in the epigastric region. Negative Tracey sign. No pain over McBurney's point. Palpation: soft; Negative for guarding or rebound tenderness present Back/Spine no CVA tenderness Extremity normal to inspection General Extremety ED: Negative for edema or tenderness General Extremity: Negative for edema Neuro Sensorium / Orientation: alert Motor Exam: strength 5/5 throughout Psych mental status grossly normal Skin no rashes or lesions noted MDM MDM MDM Narrative Medical decision making narrative: Patient presents to the emergency department for epigastric abdominal pain. She was concerned about her gallbladder. We will give her a GI cocktail to see if this gives her some relief. Basic lab work obtained along with CT scan of the abdomen/pelvis. Patient's lab work-up did not reveal any significant acute abnormality. She does not have a high white blood cell count. Liver enzymes within normal limits as well as the bilirubin. Lipase is normal. Urine does not show any signs of infection. CT scan does not reveal any acute intra-abdominal pathology. On reexamination patient resting comfortably. She did not get significant relief with the GI cocktail but she is refusing anything else for pain at this time. I believe patient could have an ulcer causing the pain or reflux. Will prescribe her Protonix for home treatment. She is to follow-up with her PCP. Return precautions reviewed with her including any worsening pain, bloody/melanotic stools, fever/chills. She understands and is agreeable this plan. All questions were answered. Lab Data Labs: Laboratory Results - last 24 hr 11/18/20 11/18/20 11/18/20 13:10 13:10 13:10 WBC 7.3 RBC 5.60 H Hgb 16.2 H Hct 49.0 H MCV 87.5 MCH 28.9 MCHC 33.1 RDW Std Deviation 43.5 RDW Coeff of [place] 13.6 Plt Count 303 MPV 9.7 Immature Gran % (Auto) 0.300 Neut % (Auto) 61.5 Lymph % (Auto) 31.1 [place] % (Auto) 5.3 Eos % (Auto) 1.1 Baso % (Auto) 0.7 Absolute Neuts (auto) 4.5 Absolute Lymphs (auto) 2.28 Nucleated RBC % 0 Sodium 140 Potassium 4.4 Chloride 106 Carbon Dioxide 29.0 Anion Gap 5 BUN 14 Creatinine 1.01 Estim Creat Clear Calc 53.37 Est GFR (MDRD) Af Amer 71 Est GFR (MDRD) Non-Af 59 L BUN/Creatinine Ratio 13.9 Glucose 99 Calcium 10.2 H Total Bilirubin 0.60 Direct Bilirubin 0.14 AST 35 ALT 54 Alkaline Phosphatase 101 Total Protein 8.0 Albumin 3.9 Globulin 4.1 Lipase 103 Urine Color Urine Clarity Urine pH Ur Specific [place] Urine Protein Urine Glucose (UA) Urine Ketones Urine Occult Blood Urine Nitrite Urine Bilirubin Urine Urobilinogen Ur Leukocyte Esterase Urine RBC Urine WBC Ur Squamous Epith Cells Urine Bacteria Urine Mucus 11/18/20 13:20 WBC RBC Hgb Hct MCV MCH MCHC RDW Std Deviation RDW Coeff of [place] Plt Count MPV Immature Gran % (Auto) Neut % (Auto) Lymph % (Auto) [place] % (Auto) Eos % (Auto) Baso % (Auto) Absolute Neuts (auto) Absolute Lymphs (auto) Nucleated RBC % Sodium Potassium Chloride Carbon Dioxide Anion Gap BUN Creatinine Estim Creat Clear Calc Est GFR (MDRD) Af Amer Est GFR (MDRD) Non-Af BUN/Creatinine Ratio Glucose Calcium Total Bilirubin Direct Bilirubin AST ALT Alkaline Phosphatase Total Protein Albumin Globulin Lipase Urine Color Yellow Urine Clarity Clear Urine pH 7.0 Ur Specific [place] 1.010 Urine Protein Negative Urine Glucose (UA) Normal Urine Ketones Negative Urine Occult Blood Negative Urine Nitrite Negative Urine Bilirubin Negative Urine Urobilinogen Normal Ur Leukocyte Esterase Negative Urine RBC 0 SEEN Urine WBC 0 SEEN Ur Squamous Epith Cells 0-5 SEEN Urine Bacteria RARE Urine Mucus 0 SEEN Radiography Diagnostic Testing: Radiology Impression Abdomen/Pelvis CT 11/18/20 13:37 IMPRESSION: Normal enhanced CT of the abdomen and pelvis. Electronically Signed: Rico Finley MD at 14:12 EDT , Service support , Discharge Plan Triage Chief Complaint: Abd Pain ED Provider: Marcelo Giordano Dx/Rx/DC Orders Clinical Impression: Abdominal pain Instructions: Abdominal Pain Prescriptions: New pantoprazole [Protonix] 40 mg tablet,delayed release (DR/EC) 40 mg PO DAILY Qty: 30 RF: 0 No Action amlodipine 5 mg tablet 5 mg PO DAILY PRN (Reason: bp) RF: 0 nabumetone 500 mg tablet 500 mg PO PRN PRN (Reason: pain) RF: 0 thyroid (pork) 90 mg tablet 100 mg PO DAILY RF: 0 hydrocodone-acetaminophen [[place]] 5-325 mg tablet 1 tab PO Q6H PRN (Reason: pain) Qty: 10 RF: 0 Progesterone 200 mg PO DAILY RF: 0 multivitamin 1 TABLET tablet 1 tab PO DAILY RF: 0 potassium 99 MG tablet 99 mg PO DAILY RF: 0 prasterone (dhea)-calcium carb 1 EACH tablet 1 ea PO DAILY RF: 0 calcium carbonate 600 MG tablet 600 mg PO DAILY RF: 0 cholecalciferol (vitamin D3) 25 MCG tablet 25 mcg PO DAILY RF: 0 turmeric root extract 500 MG capsule 500 mg PO DAILY RF: 0 L.acidoph, paracasei,B. lactis 1 EACH capsule 1 ea PO DAILY RF: 0 cyanocobalamin (vitamin B-12) 5,000 MCG capsule 5,000 mcg PO DAILY RF: 0 Iodoral 1 cap PO QODAY RF: 0 Primary Care Provider: Eddie Chappell Referrals: Eddie Chappell MD [Primary Care Provider] - 3-5 Days Disposition Disposition: Home, Self Care
[2020-11-18 14:52] VITALS: BP 172/85; PULSE 82; RESP 16; O2SAT 98
== END 2020-11-18 14:53 | disposition home or self-care (01) ==
PROVIDERS: Emergency Provider Emergency Medicine; PCP Family Medicine
DX: R10.13 Epigastric pain (principal); I10 Essential (primary) hypertension; Z85.3 Personal history of malignant neoplasm of breast; F41.9 Anxiety disorder, unspecified; Z82.49 Family history of ischemic heart disease and other diseases of the circulatory system; Z83.49 Family history of other endocrine, nutritional and metabolic diseases
CPT/HCPCS: 74177; 80048; 80076; 81001; 83690; 85025; 99283; Q9967; A4216

== ENCOUNTER → 2020-11-24 16:53 | Outpatient (CLI) | payer OTHER, SELFPAY | PROVIDERS: PCP Family Medicine; Visit Provider Family Medicine | DX: U07.1 COVID-19 (principal) | CPT/HCPCS: 87635; U0005; U0003 ==

== ENCOUNTER → 2021-01-02 08:50 | Outpatient (CLI) | payer OTHER, SELFPAY ==
--- NOTE | 2021-01-02 08:52 | US_ITS ---
STUDY: ABDOMINAL ULTRASOUND - RIGHT UPPER QUADRANT REASON FOR VISIT: Female, 65 years old epigastric pain TECHNIQUE: Ultrasound evaluation of the right upper quadrant was performed with real-time and static sears-scale imaging. TECHNICAL QUALITY: Adequate. COMPARISON: None. FINDINGS: Liver: The liver measures 15.1 cm. There is normal echogenicity of the liver. The bile ducts are within normal limits. There is hepatic color flow. The direction of portal flow is hepatopetal. There is no demonstrated mass lesion. Gallbladder: Normal distended gallbladder. The gallbladder wall measures 2 mm. There is a negative sonographic Tracey''s sign. There is no pericholecystic fluid. There are no gallstones. Common Bile Duct (C.B.D.): The common bile duct measures 5 mm. Pancreas: Normal size of the head, body and tail of the pancreas. There is normal echogenicity of the pancreas. There is no demonstrated pancreatic mass or cyst. Right Kidney: Normal size of the right kidney. The right kidney measures 9.8 cm. Normal renal cortex. The right cortex measures 1.3 cm. There is no demonstrated renal mass or cyst. There is no right hydronephrosis. US/Gallbladder IMPRESSION: Normal right upper quadrant ultrasound examination. Electronically Signed: Elia Solano MD at 9:50 EDT Tel , Service support ,
--- NOTE | 2021-01-02 08:52 | NM_ITS ---
STUDY: HEPATOBILARY SCINTGRAPHY REASON FOR EXAM: Female, 65 years old. Developing COMPARISON STUDIES : NM - None. CR - Not available for review at this time. CT - Not available for review at this time. MR - Not available for review at this time. Ultrasound 01/02/2021 Technique: After the administration of 5.5 mCi of technetium 99m Choletec intravenously, multiple scintigraphic images of the abdomen were obtained. After the administration of 8 ounces of boost energy drink orally, a gallbladder ejection fraction was calculated. Findings: Homogeneous uptake of radiopharmaceutical throughout the hepatic parenchyma. Prompt excretion into the biliary tree first seen on the 10 minute image. Prompt visualization of the gallbladder first seen on the 30 minute image. Passage of radiopharmaceutical from the biliary tree into the small bowel ensuring patency of the common bile duct. After the administration of cholecystokinin intravenously, gallbladder ejection fraction is calculated. The gallbladder ejection fraction is 27% which is decreased consistent with chronic cholecystitis. NM/Hepatobilliary Img w/Pharm Int IMPRESSION: Chronic cholecystitis with a gallbladder ejection fraction of 27%. Electronically Signed: Elia Solano MD at 16:17 EDT Tel , Service support ,
== END ==
PROVIDERS: PCP Family Medicine; Referring Provider Surgery; Visit Provider Surgery
DX: R10.13 Epigastric pain (principal)
CPT/HCPCS: 76705; 78227; A9537

== ENCOUNTER 2021-01-05 05:26 | Day surgery (SDC) | payer OTHER, SELFPAY ==
--- NOTE | 2021-01-05 05:31 | PCM.HP.BLA ---
History and Physical Date of Admission: 01/05/21 Intake Intake Visit Reasons: ABDOMINAL PAIN, POSSIBLE GASTRIC UCLER Chief Complaint: recheck breast Allergies cephalexin [From Keflex] Allergy (Severe, Verified 12/26/20 12:43) Diarrhea amoxicillin Allergy (Mild, Verified 12/26/20 12:43) Diarrhea cefazolin Allergy (Verified 12/26/20 12:43) Unknown oxycodone HCl [From Percocet] Allergy (Verified 12/26/20 12:43) Rash prednisone Allergy (Verified 12/26/20 12:43) Shortness of breath Medications Progesterone 200 mg PO DAILY 01/10/14 [History Confirmed 12/26/20] multivitamin 1 tab PO DAILY 09/23/15 [History Confirmed 12/26/20] potassium 99 mg PO DAILY 09/23/15 [History Confirmed 12/26/20] prasterone (dhea)-calcium carb 1 ea PO DAILY 09/23/15 [History Confirmed 12/26/20] amlodipine 5 mg tablet 5 mg PO DAILY PRN tab 03/02/20 [History Confirmed 12/26/20] nabumetone 500 mg tablet 500 mg PO PRN PRN tab 03/02/20 [History Confirmed 12/26/20] thyroid (pork) 90 mg tablet 100 mg PO DAILY tab 03/02/20 [History Confirmed 12/26/20] Iodoral 1 cap PO QODAY 03/07/20 [History Confirmed 12/26/20] L.acidoph, paracasei,B. lactis 1 ea PO DAILY 03/07/20 [History Confirmed 12/26/20] calcium carbonate 600 mg PO DAILY 03/07/20 [History Confirmed 12/26/20] cholecalciferol (vitamin D3) 25 mcg PO DAILY 03/07/20 [History Confirmed 12/26/20] turmeric root extract 500 mg PO DAILY 03/07/20 [History Confirmed 12/26/20] famotidine 40 mg tablet 40 mg PO BID 12/26/20 [History Confirmed 12/26/20] [facility] Medical History Abnormal mammogram of right breast Abnormal ultrasound of breast Anxiety Breast cancer, right Breast mass, right Diarrhea Family history of breast cancer Hematoma of right breast Hypertension IBS (irritable bowel syndrome) Postoperative bleeding from incision Thyroid disease Surgical History History of excision of pilonidal cyst History of lumpectomy of right breast History of right breast biopsy (~03/02/20) History of tonsillectomy and adenoidectomy Hx of cataract extraction Hx of colonoscopy Hx of detached retina repair Hx of fusion of cervical spine Family History Mother Breast cancer, Onset Age: 65 Social History Smoking Status: Never smoker second hand exposure: No alcohol intake: never substance use type: does not use caffeine: Yes what type of physical activity do you participate in: walking and bicycling frequency: 5-6 times per week HPI HPI HPI: LAI WEST, is a 65 F who presents to the office today for surgical consultation regarding abdominal pain. By her history in 2015 I helped her with an esophagogastroduodenoscopy. It appears that she may have had a colonoscopy by Dr. Monsivais 2016 for colon cancer screening but there is another date provided April 07, 2019. The patient is referred by Dr. Madeline Mccarthy and written copy my surgical consult recommendations will return to him. The patient presented to the [facility] on November 18, 2020 complaining of epigastric pain severe and stabbing. She states that she was taking a lot of Tums without relief. She has a personal history of right breast cancer.. Her white blood cell count was 7.3 with a hemoglobin 16.2 hematocrit 49 platelet count 303,000. She had normal renal functions tests with a BUN of 14 creatinine 1.01. Total bilirubin and liver function tests were normal. Lipase was normal. A CT of the abdomen pelvis with contrast was obtained. This is compared back to a previous study of October 06, 2015. The gallbladder and biliary system and pancreas were felt to be normal. No acute findings. Her urinalysis was normal as well COVID-19 testing by PCR of November 24, 2020 was detected The patient states that actually sees been having this abdominal pain for multiple years. This is actually why in 2015 we did an upper endoscopy. She states that caffeinated foods can make a difference but also pizza and ice cream. She has been taking [id number] Tums without relief. She is on famotidine 40 mg twice daily. No bright red blood per rectum or melena. She feels that because of its waxing and waning on and off nature that it likely is gallbladder disease. ROS General General: Yes fatigue; No weight change, appetite, colon cancer, breast cancer or weakness HEENT HEENT: Yes eye injury and eye surgery; No difficulty swallowing, swollen glands or hoarseness Endo Endocrine: Yes thyroid disease; No diabetes mellitus, thyroid cancer, Hair loss, heat intolerance or cold intolerance Skin Skin: No rash or changing moles Breast Breast: No left breast lump, right breast lump, nipple discharge, breast pain, abnormal mammogram, abnormal US or breast enlargement Musc Musculoskeletal: No back problems, arthritis, rheumatoid arthritis, gout or joint pain Cardio Cardiovascular: Yes high blood pressure; No murmur, pacemaker, heart disease, atrial fibrillation, heart attack, heart stent, palpitations, shortness of breat with exertion or chest pain Psych Psychiatric: No depression, anxiety or hearing voices Resp Respiratory: No shortness of breath, No sleep apnea, No cough, No COPD, No asthma, No emphysema and No wheezing Gastro Gastrointestinal: Yes abdominal pain, No nausea or vomiting, Yes diarrhea, No constipation, No blood in stool, No acid reflux, No hemorrhoids, No ulcers, No gallbladder problem and No black,tarry stools [place] Hematologic: No blood thinners, No blood disorders, No bleeding, No anemia and No blood clots Neuro Neurologic: No system reviewed and no additional complaints, except as documented, No as per HPI, No abnormal gait, No abnormal hearing, No abnormal movements, No abnormal speech, No behavioral changes, No burning sensations, No confusion, No convulsions, No disequilibrium, No dizziness, No localized weakness, No frequent falls, No headache(s), No lack of coordination, No loss of vision, No memory loss, No numbness, No other visual disturbances, No radicular pain, No restless legs, No sensory deficit, No syncope, No tingling, No tremor(s), No weakness and No other Exam Const General: cooperative, comfortable and no acute distress Nutritional Appearance: overweight HENMT Other: Left eye defect Neck Neck: normal visual inspection Carotids: normal carotid upstroke and no bruits Chest Chest palpation & inspection: normal inspection of the chest Resp Effort & Inspection: normal respiratory effort Auscultation: clear to auscultation bilaterally Cardio Rate: regular rate Rhythm: regular rhythm GI Other: Soft, slight tenderness right upper quadrant and epigastric area, no rebound or guarding, no mass, no hepatosplenomegaly, Musc Cervical Spine: normal cervical lordosis Skin General: no rashes or lesions noted Neuro General: patient alert, patient awake and patient oriented x3 Extrem General: no calf tenderness Psych Appearance: grossly normal Assessment and Plan Assessment and Plan (1) Epigastric pain: Status: Acute Orders: Orders: EGD Today R10.13 Hepatobilliary Img w/Pharm Int Today R10.13 Gallbladder Today R10.13 Plan - Dr. Yrn Almodovar MD: Epigastric pain of undetermined etiology. The patient states that she has previously been diagnosed with irritable bowel syndrome. I propose for her a gallbladder ultrasound and if unremarkable then and hepatobiliary scan. I propose for her a esophagogastroduodenoscopy with possible biopsy. Careful inspection for eosinophilic esophagitis or H. pylori gastritis will be pursued. She is aware of technique, benefit, risk, alternatives. I will continue to try to assist with determining definitive diagnosis of her discomfort. I appreciate the ongoing opportunity of assisting with her surgical care. If I am unable to determine a organic etiology then possibly this falls into a symptom of IBS. Copy: Dr. Madeline Mccarthy and Dr. Eddei Almodovar M.D., F.A.C.S. The patient has followed through with a gallbladder ultrasound which was normal. She subsequently had a hepatobiliary scan with an ejection fraction of 27%. Plan to proceed with planned esophagogastroduodenoscopy. She is on a significant amount of famotidine treatment. If this is remarkable then we will treat as appropriate. It is not remarkable then will consider offering the patient a laparoscopic cholecystectomy with selective cholangiograms with the underlying tentative diagnosis subsequently biliary dyskinesia. Yrn Almodovar M.D., F.A.C.S.
[2021-01-05] MEDS: Lactated Ringers 1,000 ML 100 ML IV (05:45)
[2021-01-05 05:59] VITALS: BP 165/84; PULSE 84; RESP 16; TEMP 36.6; O2SAT 97; BMI 32.7
--- NOTE | 2021-01-05 06:30 | IMM_PTH ---
PATIENT: LAI WEST LOC: EN U#:[id number] AGE/SX: 65/F ROOM: RE01/05/[address]: Dr. Yrn Almodovar MD : 1955 BED: DIS: 01/05/2021 SPEC #: [id number] RECD: 01/05/21 13:43 STATUS: LIO REQ #: [id number] JANEEN: 01/05/21 06:[address]: Yrn Almodovar DEPT: IMMUNOHISTOCHEMISTRY RECD BY: Sofia White ENTERED: 01/05/21 13:44 SP TYPE: IMMUNO OTHR DR: Dr. Madeline Mccarthy MD Tissues: B - Stomach, NOS Procedures: H Pylori (initial) PHYSICIAN & INSTITUTION [address] [address] SPECIMEN INFORMATION: Tissue Source: B ? Antrum biopsy Clinical Info: Epigastric pain Specimen Number: [id number] CPT code: 50137 METHODOLOGY: Deparaffinized sections of prefer/formalin-fixed tissue or PAP/DQ stained slides are incubated with monoclonal/polyclonal antibodies/oligonucleotide probes. Localization is made via biotin free immunoperoxidase method. Appropriate controls are performed and reacted as expected. Results on target cell population are indicated in the following table: RESULTS: ANTIBODY / CLONE RESULT Block B H Pylori (polyclonal) negative These tests were developed and their performance characteristics determined by [facility]. They may not have been cleared or approved by the [place]. Food and Drug Administration. The FDA has determined that such clearance or approval is not necessary. INTERPRETATION: B. Antrum biopsy: Negative for Helicobacter pylori organisms. AM:william 01/06/2021
--- NOTE | 2021-01-05 06:30 | EGD_PTH ---
PATIENT: LAI WEST LOC: EN U#:[id number] AGE/SX: 65/F ROOM: RE01/05/[address]: Dr. Yrn Almodovar MD : 1955 BED: DIS: 01/05/2021 SPEC #: [id number] RECD: 01/05/21 10:25 STATUS: LIO TANO #: [id number] JANEEN: 01/05/21 06:[address]: Yrn Almodovar DEPT: SURGICAL PATHOLOGY RECD BY: Carmen Roque ENTERED: 01/05/21 13:12 SP TYPE: EGD BIOPSY OT DR: Dr. Madeline Mccarthy MD Tissues: A - Duodenum, NOS B - Gastric mucous membrane C - Esophagus, NOS D - Esophagus, NOS Procedures: Special Stain Group II Surgery Specimen Level IV Alcian Blue/PAS (control) HEADER OPERATION: EGD ([facility] [place] PRE-OP DIAGNOSIS: Epigastric pain TISSUE SUBMITTED: A ? Duodenum biopsy, B ? Antrum biopsy for H. pylori and path, C ? Distal esophagus biopsy, D ? Mid esophagus biopsy MICROSCOPIC DIAGNOSIS A. 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 B. Gastric antrum, biopsy: Chronic gastritis. See comment. C. Distal esophagus, biopsy: Focal changes of reflux. No evidence of goblet cell metaplasia. See comment. D. Mid esophagus, biopsy: Benign squamous mucosa. No evidence of inflammation. AM:william 01/06/2021 COMMENT B. The results of immunohistochemistry for Helicobacter pylori will be reported separately ([id number]). C. Alcian blue/PAS stain with matched control supports the above diagnosis. MICROSCOPIC DESCRIPTION Slides are reviewed. GROSS DESCRIPTION A - Received in fixative is one container labeled with the patient's name and designated duodenum biopsy. The specimen consists of one irregular fragment of light kaur soft tissue that measures 0.3 x 0.3 x 0.1 cm. The specimen is totally submitted in one cassette. B - Received in fixative is one container labeled with the patient's name and designated antrum biopsy. The specimen consists of one irregular fragment of light kaur soft tissue that measures 0.3 x 0.3 x 0.1 cm. The specimen is totally submitted in one cassette. C - Received in fixative is one container labeled with the patient's name and designated distal esophagus biopsy. The specimen consists of one irregular fragment of light kaur soft tissue that measures 0.4 x 0.3 x 0.1 cm. The specimen is totally submitted in one cassette. D - Received in fixative is one container labeled with the patient's name and designated mid esophagus biopsy. The specimen consists of one irregular fragment of light akur soft tissue that measures 0.5 x 0.2 x 0.1 cm. The specimen is totally submitted in one cassette. / SJ:rg 01/05/21 TC:3 [facility]: [id number] x4, [id number]
--- NOTE | 2021-01-05 06:47 | OP.EGD_ITS ---
Patient Name: Nayeli Gomez Procedure Date: 01/05/2021 6:10 AM Date of : 1955 Age: 65 Procedure: Upper GI endoscopy Indications: Epigastric abdominal pain Providers: Yrn Almodovar MD Medicines: See the Anesthesia note for documentation of the administered medications Complications: No immediate complications. Procedure: Pre-Anesthesia Assessment: - Prior to the procedure, a History and Physical was performed, and patient medications and allergies were reviewed. The patient's tolerance of previous anesthesia was also reviewed. The risks and benefits of the procedure and the sedation options and risks were discussed with the patient. All questions were answered, and informed consent was obtained. Prior Anticoagulants: The patient has taken no previous anticoagulant or antiplatelet agents. ASA Grade Assessment: II - A patient with mild systemic disease. After reviewing the risks and benefits, the patient was deemed in satisfactory condition to undergo the procedure. After obtaining informed consent, the endoscope was passed under direct vision. Throughout the procedure, the patient's blood pressure, pulse, and oxygen saturations were monitored continuously. The Endoscope was introduced through the mouth, and advanced to the second part of duodenum. The upper GI endoscopy was accomplished without difficulty. The patient tolerated the procedure well. Scope In: 6:34:37 AM Scope Out: 6:39:42 AM Total Procedure Duration Time 0 hours 5 minutes 5 seconds Findings: The Z-line was regular and was found 40 cm from the incisors. Biopsies were taken with a cold forceps for histology. The middle third of the esophagus was normal. Biopsies were taken with a cold forceps for histology. A medium-sized hiatal hernia was present. Diffuse mild inflammation characterized by erythema was found in the stomach. Biopsies were taken with a cold forceps for histology. The examined duodenum was normal. Biopsies were taken with a cold forceps for histology. Impression: - Z-line regular, 40 cm from the incisors. Biopsied. - Normal middle third of esophagus. Biopsied. - Medium-sized hiatal hernia. - Bile gastritis. Biopsied. - Normal examined duodenum. Biopsied. Recommendation: - Discharge patient to home. - Resume previous diet. - Continue present medications. - Use sucralfate tablets 1 gram PO QID. - Telephone my office for pathology results in 3 days If trial of Carafate does not improve the condition then based upon the abnormal hepatobiliary scan will recommend laparoscopic cholecystectomy. Procedure Code(s): --- Professional --- 16773, Esophagogastroduodenoscopy, flexible, transoral; with biopsy, single or multiple Diagnosis Code(s): --- Professional --- K44.9, Diaphragmatic hernia without obstruction or gangrene K29.60, Other gastritis without bleeding R10.13, Epigastric pain CPT copyright 2017 [employer]. All rights reserved. The codes documented in this report are preliminary and upon apparatus lineman review may be revised to meet current compliance requirements. Yrn Almodovar MD 01/05/2021 6:47:04 AM This report has been signed electronically. Number of Addenda: 0 Note Initiated On: 01/05/2021 6:10 AM
--- NOTE | 2021-01-05 06:48 | OP.CCLET_ITS ---
01/05/2021 Madeline Mccarthy [place] [id number] [place] [address] Re : Upper GI endoscopy procedure for Nayeli Gomez Dear Dr. Mccarthy This procedure was performed on December. My impressions and recommendations are as follows: Impressions : - Z-line regular, 40 cm from the incisors. Biopsied. - Normal middle third of esophagus. Biopsied. - Medium-sized hiatal hernia. - Bile gastritis. Biopsied. - Normal examined duodenum. Biopsied. Recommendations : - Discharge patient to home. - Resume previous diet. - Continue present medications. - Use sucralfate tablets 1 gram PO QID. - Telephone my office for pathology results in 3 days If trial of Carafate does not improve the condition then based upon the abnormal hepatobiliary scan will recommend laparoscopic cholecystectomy. My findings are described in the full procedure note, which is enclosed. If I can be of further assistance, please feel free to contact me at Doctor phone number(s): Work: . Sincerely, Yrn Almodovar MD 01/05/2021 6:47:04 AM This report has been signed electronically.
[2021-01-05 06:50] VITALS: BP 165/84; BP 168/81; PULSE 112; RESP 16; TEMP 36.8; O2SAT 95
[2021-01-05 06:55] VITALS: BP 144/87; BP 165/84; PULSE 94; RESP 16; O2SAT 96
[2021-01-05 07:00] VITALS: BP 140/82; BP 165/84; PULSE 93; RESP 18; O2SAT 97
[2021-01-05 07:05] VITALS: BP 144/84; BP 165/84; PULSE 86; RESP 16; TEMP 36.6; O2SAT 99
[2021-01-05 08:07] VITALS: BP 165/84
== END 2021-01-05 08:09 ==
LOC: EN 05:26 → AC 05:27
PROVIDERS: PCP Family Medicine; Referring Provider Family Medicine; Visit Provider Surgery
PROC: 0DJ08ZZ Inspection of Upper Intestinal Tract, Via Natural or Artificial Opening Endoscopic (ICD-10-PCS; CPT 43235; principal; 2021-01-05 06:25)
DX: K29.50 Unspecified chronic gastritis without bleeding (principal); K44.9 Diaphragmatic hernia without obstruction or gangrene; R10.13 Epigastric pain; I10 Essential (primary) hypertension; K58.9 Irritable bowel syndrome, unspecified; Z85.3 Personal history of malignant neoplasm of breast; Z80.3 Family history of malignant neoplasm of breast; Z82.49 Family history of ischemic heart disease and other diseases of the circulatory system; Z83.49 Family history of other endocrine, nutritional and metabolic diseases; Z88.1 Allergy status to other antibiotic agents; Z88.5 Allergy status to narcotic agent
CPT/HCPCS: 43239; 88305; 88313; 88342; J7120; J2405

== ENCOUNTER → 2021-01-16 09:17 | Outpatient (CLI) | payer OTHER, SELFPAY ==
--- NOTE | 2021-01-16 09:21 | US_ITS ---
STUDY: ULTRASOUND BREAST - LEFT REASON FOR EXAM: Female, 65 years old. Palpable lump left breast. TECHNIQUE: Axial and longitudinal images of the LEFT breast were performed with a high resolution ultrasound transducer. # OF IMAGES: 10 COMPARISON: Comparison is made with prior mammogram done earlier today. FINDINGS: LEFT Breast: The palpable abnormality corresponds to a 1.2 cm x 0.7 cm x 0.4 cm lymph node. The central hilum is echogenic suggestive of a benign lymph node. US/Breast Limited Unilateral IMPRESSION: The palpable abnormality corresponds to a 1.2 cm x 0.7 cm x 0.4 cm benign appearing lymph node. ASSESSMENT CATEGORY: BIRADS Category 2: Benign. A letter regarding these results will be sent to the patient by the facility within 30 days. Electronically Signed: Rico Finley MD at 11:04 EDT , Service support ,
--- NOTE | 2021-01-16 09:21 | BI_ITS ---
MAMMOGRAPHY - BILATERAL DIAGNOSTIC REASON FOR EXAM: Female, 65 years old. Left axillary lump. PERTINENT HISTORY: Personal history of breast cancer. Prior right lumpectomy. Mother with breast cancer. TECHNIQUE: Digital bilateral breast yemi (3D mammographic acquisition) in the CC and MLO projections. 2-D mediolateral oblique (MLO) and craniocaudad (CC) views of both breasts were obtained. CAD: Full Field Digital Mammography with Computer Added Detection was performed. COMPARISON: Comparison is made with prior study dated 02/03/2020. FINDINGS: Breast Composition: There are scattered areas of fibroglandular density. There are no dominant masses or suspicious calcifications. The patient is status post lumpectomy in the upper lateral aspect of the right breast with a resultant postoperative scarring. Surgical clips are seen in the right axillary region. No new mass lesion or cluster of microcalcification is present. No other significant abnormalities are identified. BI/DIAG MAMM W/CAD, BILAT IMPRESSION: Status post lumpectomy in the upper outer quadrant of the right breast with resultant postoperative changes. Surgical clips are seen in the right axillary region. With the patient''s history of a palpable lump in the left axillary region, correlation with ultrasound is recommended. ASSESSMENT CATEGORY: BIRADS Category 0: Incomplete. Need additional imaging evaluation. A letter regarding these results will be sent to the patient by the facility within 30 days. Approximately 10% of breast cancers are not detected by mammography. A normal mammogram should not delay biopsy of a clinically suspicious abnormality. Electronically Signed: Rico Finley MD at 11:03 EDT , Service support ,
== END ==
PROVIDERS: PCP Family Medicine; Referring Provider Specialist; Visit Provider Specialist
DX: D48.62 Neoplasm of uncertain behavior of left breast (principal)
CPT/HCPCS: 76642; 77062; 77066; G0279

== ENCOUNTER 2021-01-19 08:11 | Day surgery (SDC) | payer OTHER, SELFPAY ==
--- NOTE | 2021-01-16 08:33 | EKG12_ITS ---
Test Reason : PRE OP Blood Pressure : / mmHG Vent. Rate : 084 BPM Atrial Rate : 084 BPM P-R Int : 164 ms QRS Dur : 078 ms QT Int : 368 ms P-R-T Axes : 071 -67 078 degrees QTc Int : 434 ms Normal sinus rhythm Left anterior fascicular block Abnormal ECG Confirmed by ALEXY PARKINSON, VIVIANE ([id number]), news editor ZAHIRA ROBLEDO ([id number]) on 01/17/2021 8:55:31 AM Referred By: Yrn Almodovar Confirmed By:VIVIANE TRACEY MD
[2021-01-16 10:36] LABS: Thyroid Stim Hormone (TSH) 2.28 uIU/mL (0.358-3.74)
[2021-01-19] VITALS (15 sets, daily range): BP systolic 105–157; BP diastolic 61–83; PULSE 76–95; RESP 14–83; TEMP 36.3–37.1; O2SAT 89–100; BMI 32.9
[2021-01-19] MEDS: Lactated Ringers 1,000 ML 100 ML IV ×2 (09:00→17:30)
--- NOTE | 2021-01-19 10:16 | PCM.HP.BLA ---
History and Physical Date of Admission: 01/19/21 Intake Intake Visit Reasons: ABDOMINAL PAIN, POSSIBLE GASTRIC UCLER Chief Complaint: recheck breast Allergies cephalexin [From Keflex] Allergy (Severe, Verified 12/26/20 12:43) Diarrhea amoxicillin Allergy (Mild, Verified 12/26/20 12:43) Diarrhea cefazolin Allergy (Verified 12/26/20 12:43) Unknown oxycodone HCl [From Percocet] Allergy (Verified 12/26/20 12:43) Rash prednisone Allergy (Verified 12/26/20 12:43) Shortness of breath Medications Progesterone 200 mg PO DAILY 01/10/14 [History Confirmed 12/26/20] multivitamin 1 tab PO DAILY 09/23/15 [History Confirmed 12/26/20] potassium 99 mg PO DAILY 09/23/15 [History Confirmed 12/26/20] prasterone (dhea)-calcium carb 1 ea PO DAILY 09/23/15 [History Confirmed 12/26/20] amlodipine 5 mg tablet 5 mg PO DAILY PRN tab 03/02/20 [History Confirmed 12/26/20] nabumetone 500 mg tablet 500 mg PO PRN PRN tab 03/02/20 [History Confirmed 12/26/20] thyroid (pork) 90 mg tablet 100 mg PO DAILY tab 03/02/20 [History Confirmed 12/26/20] Iodoral 1 cap PO QODAY 03/07/20 [History Confirmed 12/26/20] L.acidoph, paracasei,B. lactis 1 ea PO DAILY 03/07/20 [History Confirmed 12/26/20] calcium carbonate 600 mg PO DAILY 03/07/20 [History Confirmed 12/26/20] cholecalciferol (vitamin D3) 25 mcg PO DAILY 03/07/20 [History Confirmed 12/26/20] turmeric root extract 500 mg PO DAILY 03/07/20 [History Confirmed 12/26/20] famotidine 40 mg tablet 40 mg PO BID 12/26/20 [History Confirmed 12/26/20] [facility] Medical History Abnormal mammogram of right breast Abnormal ultrasound of breast Anxiety Breast cancer, right Breast mass, right Diarrhea Family history of breast cancer Hematoma of right breast Hypertension IBS (irritable bowel syndrome) Postoperative bleeding from incision Thyroid disease Surgical History History of excision of pilonidal cyst History of lumpectomy of right breast History of right breast biopsy (~03/02/20) History of tonsillectomy and adenoidectomy Hx of cataract extraction Hx of colonoscopy Hx of detached retina repair Hx of fusion of cervical spine Family History Mother Breast cancer, Onset Age: 65 Social History Smoking Status: Never smoker second hand exposure: No alcohol intake: never substance use type: does not use caffeine: Yes what type of physical activity do you participate in: walking and bicycling frequency: 5-6 times per week HPI HPI HPI: LAI WEST, is a 65 F who presents to the office today for surgical consultation regarding abdominal pain. By her history in 2015 I helped her with an esophagogastroduodenoscopy. It appears that she may have had a colonoscopy by Dr. Monsivais 2016 for colon cancer screening but there is another date provided April 07, 2019. The patient is referred by Dr. Madeline Mccarthy and written copy my surgical consult recommendations will return to him. The patient presented to the [facility] on November 18, 2020 complaining of epigastric pain severe and stabbing. She states that she was taking a lot of Tums without relief. She has a personal history of right breast cancer.. Her white blood cell count was 7.3 with a hemoglobin 16.2 hematocrit 49 platelet count 303,000. She had normal renal functions tests with a BUN of 14 creatinine 1.01. Total bilirubin and liver function tests were normal. Lipase was normal. A CT of the abdomen pelvis with contrast was obtained. This is compared back to a previous study of October 06, 2015. The gallbladder and biliary system and pancreas were felt to be normal. No acute findings. Her urinalysis was normal as well COVID-19 testing by PCR of November 24, 2020 was detected The patient states that actually sees been having this abdominal pain for multiple years. This is actually why in 2015 we did an upper endoscopy. She states that caffeinated foods can make a difference but also pizza and ice cream. She has been taking yydm-[id number]-lepxyln Tums without relief. She is on famotidine 40 mg twice daily. No bright red blood per rectum or melena. She feels that because of its waxing and waning on and off nature that it likely is gallbladder disease. ROS General General: Yes fatigue; No weight change, appetite, colon cancer, breast cancer or weakness HEENT HEENT: Yes eye injury and eye surgery; No difficulty swallowing, swollen glands or hoarseness Endo Endocrine: Yes thyroid disease; No diabetes mellitus, thyroid cancer, Hair loss, heat intolerance or cold intolerance Skin Skin: No rash or changing moles Breast Breast: No left breast lump, right breast lump, nipple discharge, breast pain, abnormal mammogram, abnormal US or breast enlargement Musc Musculoskeletal: No back problems, arthritis, rheumatoid arthritis, gout or joint pain Cardio Cardiovascular: Yes high blood pressure; No murmur, pacemaker, heart disease, atrial fibrillation, heart attack, heart stent, palpitations, shortness of breat with exertion or chest pain Psych Psychiatric: No depression, anxiety or hearing voices Resp Respiratory: No shortness of breath, No sleep apnea, No cough, No COPD, No asthma, No emphysema and No wheezing Gastro Gastrointestinal: Yes abdominal pain, No nausea or vomiting, Yes diarrhea, No constipation, No blood in stool, No acid reflux, No hemorrhoids, No ulcers, No gallbladder problem and No black,tarry stools Guevara Hematologic: No blood thinners, No blood disorders, No bleeding, No anemia and No blood clots Neuro Neurologic: No system reviewed and no additional complaints, except as documented, No as per HPI, No abnormal gait, No abnormal hearing, No abnormal movements, No abnormal speech, No behavioral changes, No burning sensations, No confusion, No convulsions, No disequilibrium, No dizziness, No localized weakness, No frequent falls, No headache(s), No lack of coordination, No loss of vision, No memory loss, No numbness, No other visual disturbances, No radicular pain, No restless legs, No sensory deficit, No syncope, No tingling, No tremor(s), No weakness and No other Exam Const General: cooperative, comfortable and no acute distress Nutritional Appearance: overweight HENMT Other: Left eye defect Neck Neck: normal visual inspection Carotids: normal carotid upstroke and no bruits Chest Chest palpation & inspection: normal inspection of the chest Resp Effort & Inspection: normal respiratory effort Auscultation: clear to auscultation bilaterally Cardio Rate: regular rate Rhythm: regular rhythm GI Other: Soft, slight tenderness right upper quadrant and epigastric area, no rebound or guarding, no mass, no hepatosplenomegaly, Musc Cervical Spine: normal cervical lordosis Skin General: no rashes or lesions noted Neuro General: patient alert, patient awake and patient oriented x3 Extrem General: no calf tenderness Psych Appearance: grossly normal Assessment and Plan Assessment and Plan (1) Epigastric pain: Status: Acute Orders: Orders: EGD Today R10.13 Hepatobilliary Img w/Pharm Int Today R10.13 Gallbladder Today R10.13 Plan - Dr. Yrn Almodovar MD: Epigastric pain of undetermined etiology. The patient states that she has previously been diagnosed with irritable bowel syndrome. I propose for her a gallbladder ultrasound and if unremarkable then and hepatobiliary scan. I propose for her a esophagogastroduodenoscopy with possible biopsy. Careful inspection for eosinophilic esophagitis or H. pylori gastritis will be pursued. She is aware of technique, benefit, risk, alternatives. I will continue to try to assist with determining definitive diagnosis of her discomfort. I appreciate the ongoing opportunity of assisting with her surgical care. If I am unable to determine a organic etiology then possibly this falls into a symptom of IBS. Copy: Dr. Madeline Mccarthy and Dr. Eddie Almodovar M.D., F.A.C.S. The patient has followed through with a gallbladder ultrasound which was normal. She subsequently had a hepatobiliary scan with an ejection fraction of 27%. Plan to proceed with planned esophagogastroduodenoscopy. She is on a significant amount of famotidine treatment. If this is remarkable then we will treat as appropriate. It is not remarkable then will consider offering the patient a laparoscopic cholecystectomy with selective cholangiograms with the underlying tentative diagnosis subsequently biliary dyskinesia. The patient's upper endoscopy that was performed on January 05, 2021 was notable for a Z-line at 40 cm. There is a medium size hiatal hernia. Some bile gastritis was felt to have been identified. H. pylori was negative. The duodenal biopsies showed mild Graeme's gland hyperplasia. There is mild gastritis. H. pylori was negative. Mild reflux esophagitis but no Ricardo's. Medium hiatal hernia. No evidence of any mid esophageal abnormal pathology. Based upon the patient's ongoing symptoms and failure of medical control recommended the patient based upon a diagnosis of biliary dyskinesia that we pursue a laparoscopic cholecystectomy with selective cholangiograms. She is aware of technique, benefit, risk, alternatives she presents and we will proceed as noted. Yrn Almodovar M.D., F.A.C.S. Yrn Almodovar M.D., F.A.C.S.
--- NOTE | 2021-01-19 10:22 | EX.PCM.DISCH ---
Discharge Instructions Procedure General Surgery Diet Discharge Diet: Light diet - advance as tolerated (if you have questions about your diet instructions, please talk to you doctor.) Activity Discharge Activity: May Not Drive (for 3-5 days or while taking narcotic pain medicine.) May shower in (days): 1 Lifting Restrictions: 10 pounds Dressing / Incision Call your doctor if your incision/area has: Continuous Slow Oozing, Sudden Increased Bleeding, Increased Pain/ Swelling, Increased Redness and Foul Smelling Discharge Call your doctor if you observe: Fever of 101 or Higher Suture Line Care: Avoid Pulling/Pushing and Avoid Pinching/Bending Additional Dressing/Incision Instructions:: Change or remove dressing in 4 days. Leave steri-strips in place for 1 week. Follow Up Care Please Follow Up With: Yrn Almodovar MD When: Call [phone] to make an appointment to be seen in about 10 days. Test Results: Test results from this visit will be discussed in further detail at your follow-up appointment, if applicable. Discharge Plan Admission Attending Provider: Yrn Almodovar Primary Care Provider: Madeline Mccarthy Discharge Orders/Prescriptions Prescriptions: No Action amlodipine 5 mg tablet 5 mg PO DAILY RF: 0 thyroid (pork) 90 mg tablet 100 mg PO DAILY RF: 0 famotidine 40 mg tablet 40 mg PO BID RF: 0 multivitamin 1 TABLET tablet 1 tab PO DAILY RF: 0 potassium 99 MG tablet 99 mg PO DAILY RF: 0 prasterone (dhea)-calcium carb 1 EACH tablet 1 ea PO DAILY RF: 0 calcium carbonate 600 MG tablet 600 mg PO DAILY RF: 0 cholecalciferol (vitamin D3) 25 MCG tablet 25 mcg PO DAILY RF: 0 turmeric root extract 500 MG capsule 500 mg PO DAILY RF: 0 L.acidoph, paracasei,B. lactis 1 EACH capsule 1 ea PO DAILY RF: 0 Iodoral 1 cap PO QODAY RF: 0 sucralfate 1 gram tablet 1 g PO Q6H Qty: 120 RF: 0
--- NOTE | 2021-01-19 10:30 | GALL_PTH ---
PATIENT: LAI WEST LOC: [facility] [place] U#:[id number] AGE/SX: 65/F ROOM: RE01/19/[address]: Dr. Yrn Almodovar MD : 1955 BED: DIS: 01/19/2021 SPEC #: [id number] RECD: 01/19/21 13:03 STATUS: LIO FREEDMAN #: [id number] JANEEN: 01/19/21 10:[address]: Yrn Almodovar DEPT: SURGICAL PATHOLOGY RECD BY: Carmen Roque ENTERED: 01/20/21 09:00 SP TYPE: NANDA [place] DR: Dr. Madeline Mccarthy MD Tissues: Gallbladder, NOS Procedures: Surgery Specimen Level III HEADER OPERATION: Laparoscopic cholecystectomy with IOC PRE-OP DIAGNOSIS: Epigastric pain, biliary dyskinesia TISSUE SUBMITTED: Gallbladder MICROSCOPIC DIAGNOSIS Gallbladder, cholecystectomy: Chronic cholecystitis. AM:william 01/23/2021 MICROSCOPIC DESCRIPTION Slides are reviewed. GROSS DESCRIPTION Received is one container labeled with the patient's name and designated gallbladder. The specimen consists of a gallbladder measuring 6.5 cm in length and up to 3 cm in diameter. The external surface is pink-kaur, smooth and glistening for the most part. Focally it is granular, hemorrhagic and contains cautery artifact. The gallbladder contains green-yellow mucoid bile. No stones are identified in the container or in the gallbladder. The mucosa is bile-stained and without any mass lesions. The gallbladder wall measures up to 0.2 cm in thickness. Electronics Specialist sections from the gallbladder and the cystic duct are submitted in one cassette. / SJ:rg 01/20/21 TC:3 [facility]: [id number]
--- NOTE | 2021-01-19 11:14 | RAD_ITS ---
STUDY: INTRAOPERATIVE CHOLANGIOGRAM. REASON FOR EXAM: Female, 65 years old. PAIN FLUOROSCOPY TIME (if supplied): ( 23 seconds ) minutes/seconds. The C-loop of 157 images was submitted. TECHNIQUE: Intraoperative cholangiogram was performed by the surgeon. Imaging was submitted. COMPARISON: None. FINDINGS: The intra and extrahepatic biliary ducts are unremarkable. No intraluminal filling defect is seen. There is free flow of contrast into the duodenum. RAD/Cholangiogram/ O R,Initial IMPRESSION: Unremarkable intraoperative cholangiogram. Electronically Signed: Rico Finley MD at 12:28 EDT , Service support ,
--- NOTE | 2021-01-19 11:50 | PCM.OPRPT ---
Problems Associated Problem List Diagnoses (1) Biliary dyskinesia: Report of Operation Date of Procedure: 01/19/21 Pre-Operative Diagnosis: Biliary dyskinesia Post-Operative Diagnosis: Same Surgery/Procedure Performed:: Laparoscopic cholecystectomy with cholangiograms Description of Surgical Findings:: Timeout informed consent was obtained. 65-year-old female was taken to the operating placement table underwent general endotracheal intubation esthesia. Clindamycin 900 g given intravenously. The abdomen was sterilely prepped and draped. 1% lidocaine mixed 50-50 with 0.5% Marcaine was used as a local anesthetic. Throughout the procedure total 60 cc was used. Skin sites were preanesthetized. A vertical infraumbilical incision was created holding sutures of 0 Vicryl placed varies needle inserted same. Drop test performed the abdomen was insufflated with CO2 to a pressure of 10 mmHg pressure. 10 mm trocar inserted. 10 mm laparoscope inserted. No missing trocar injuries. Under physician a right subcostal tap block was performed with a local anesthetic. Then local was instilled and trochars were placed in the epigastric area mid abdomen right upper quadrant. Superficial reviewed the abdomen revealed no gross abnormalities. The gallbladder was distracted. Blunt dissection was instituted that in the infundibulum until clearly the cystic duct cystic artery identified. The cystic artery was clipped twice proximally once distally prior to transecting it. A Hem-o-imani clip was placed on the cystic duct incision made the cystic duct and a 14-gauge Angiocath inserted and use that to place a cholangiogram catheter. Fluoroscopically controlled cholangiograms were obtained demonstrating normal ductal anatomy and free flow into the small bowel. Common bile duct and intrahepatic ducts appeared to be generally enlarged but there was free flow into the small bowel. Angiogram catheter was removed to hemolock clips were placed on the cystic duct stump prior to transecting it. The gallbladder was dissected free from the liver bed. Were needed additional hemoclips were placed for hemostasis. The gallbladder was completely released with no spillage. Hemostasis was intact. The gallbladder was placed in a retrieval bag. The right upper quadrant was irrigated and aspirated free of excess fluid. The abdomen was allowed to deflate through an antiviral valve. Gallbladder was exited the umbilicus. Trochars were removed. The fascia at the umbilicus approximated up to 0 Vicryl [id number] suture. Skin edges approximated opted for Monocryl subdermal stitches. Steri-Strips Telfa OpSite dressings applied. Sponge and instrument and needle counts were reported to the surgeon to be correct. Blood loss minimal. Specimens gallbladder. Drains none. Blood loss minimal. The patient was taken to the recovery area in satisfactory addition without apparent complication Yrn Almodovar M.D., F.A.C.S. Surgeon: Yrn Almodovar Type of Anesthesia: General Anesthesiologist: Shelbi Mark
--- NOTE | 2021-01-19 13:30 | SUR.PHASEI ---
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
[2021-01-19] MEDS: Ketorolac 15 MG/ML Vial IV (13:48)
== END 2021-01-19 21:34 | disposition home or self-care (01) ==
LOC: SDC 08:11 → AC 08:11
PROVIDERS: PCP Family Medicine; Referring Provider Surgery; Visit Provider Surgery
PROC: (CPT 47610; principal; 2021-01-19 10:10)
DX: K81.1 Chronic cholecystitis (principal); K82.8 Other specified diseases of gallbladder; I10 Essential (primary) hypertension; F41.9 Anxiety disorder, unspecified; K58.9 Irritable bowel syndrome, unspecified; K21.9 Gastro-esophageal reflux disease without esophagitis; E07.9 Disorder of thyroid, unspecified; Z85.3 Personal history of malignant neoplasm of breast; Z79.899 Other long term (current) drug therapy
CPT/HCPCS: 00790; 47563; 36415; 74300; 76000; 84443; 88304; 93005; J7120; J2405

== ENCOUNTER → 2021-02-03 11:38 | Outpatient (CLI) | payer OTHER, SELFPAY ==
[2021-02-03 15:26] LABS: Absolute Lymphocyte Count 2.52 X10^3/uL (0.83-4.51); Basophil# 0.05 X10^3/uL; Basophil% 0.7 % (0-1); Eosinophil# 0.12 X10^3/uL; Eosinophils% 1.7 % (0-5); Hematocrit 45.5 % (37-47); Lymphocyte # 2.52 X10^3/ul (0.83-4.51); Lymphocyte % 35.1 % (19-41); Mean Corpuscular Hgb 29.4 pg (27.0-32.0); Mean Corpuscular Volume 89.2 fL (81-99); Mean Platelet Vol. 10.4 fl (6.2-12.0); Monocyte# 0.45 X10^3/uL; Monocyte% 6.3 % (0-10); NRBC Flagged by Analyzer 0 % (0-5); Neutrophil # 4.02 X10^3/uL (2.7-7.7); Neutrophil % 55.9 % (47-70); Platelet Count 353 K/mm3 (150-450); RBC Distribution Width CV 14.6 % (11.6-14.6); RBC Distribution Width SD 48.1 fl (35.1-43.9); White Blood Count 7.2 K/mm3 (4.4-11.0)
== END ==
PROVIDERS: PCP Family Medicine; Referring Provider Family Medicine; Visit Provider Family Medicine
DX: D58.2 Other hemoglobinopathies (principal)
CPT/HCPCS: 36415; 85025

== ENCOUNTER 2021-03-30 09:00 | Outpatient (RCR) | payer OTHER, SELFPAY ==
--- NOTE | 2021-03-13 09:01 | HP.PTEVAL ---
Patient's Visit Information LAI WEST is a 65 year old F referred to Physical Therapy by GAGE Huerta with a diagnosis of DDD CERVICAL SPINE. Date of Evaluation: 03/13/21 Physical Therapist: Betty Babcock PT, Cert MDT - Visit Plan Frequency: 2-3x /Week Duration: 4-6 Weeks Plan: POSTURE CORRECTION/STRENGTHENING, INSTRUCTION IN APPROPRIATE BODY MECHANICS AND ACTIVITY MODIFICATIONS. MARNI UE ROM, STRETCHING AND STRENGTHENING. HEP INSTRUCTION. CONSIDER: REP RET IN SITTING. REP RET IN LYING. SCAP SQUEEZES. DEEP NECK FLEXOR LIFT. PRONE W'S. UE WALL SLIDES. PRONE ROWS. UE TBAND WALL WALKS. ANTERIOR/MIDDLE SCALENE STRETCH. UPPER TRAP STRETCH. LEVATOR SCAPULAE STRETCH. CHEST/PEC MAJOR AND MINOR STRETCH - Subjective Diagnosis: CREVICAL DDD. 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 Disability: NO. Present symptoms: RIGHT GREATER THAN LEFT UE PAIN AND TINGLING. DOWN TO HAND ON RIGHT AND FOREARM ON LEFT. MARNI NECK PAIN RIGHT > LEFT. PAIN BETWEEN SHOULDER BLADES. H/O HEADACHES - I GET TERRIBLE SINUS HEADACHES. Present since: ABOUT 6 WEEKS AGO AFTER GALLBLADDER SURGERY - OUTPATIENT PROCEEDURE. Pain Scale: Worst - 6/10 Least - 1/10. Currently: /10. Commenced as a result of: STARTED FOR NO APPARENT REASON A FEW DAYS AFTER GALLBLADDER SURGERY ABOUT 6 WEEKS AGO. Symptoms at onset: PAIN AND TINGLING RIGHT UE. Worse: SITTING IN CERTAIN CHAIRS, IN THE EVENING, LYING IN BED CAN TRIGGER IT, SOMETIMES RIDING IN CAR. Better: SUPPORTING RIGHT UE TAKES THE PRESSURE OFF. IBUPROFEN. Disturbed sleep: YES. Previous history/Previous treatment: 2012 ACDF. PATIENT REPORTS SHE HAD A GOOD RECOVERY AND HASN'T HAD PROBLEMS UNTIL NOW. This episode: PT CONSULT. Dizziness: NO. Tinnitis: NO. Nausea: NO. Shortness of Breath: NO. Difficulty Swollowing: NO. Gait: NORMAL. Accidents: NO. Unexplained weight loss: NO. Imaging: RECENT NECK X-RAYS AT [facility] - DEGENERATION ABOUT FUSION PER PATIENT REPORT. ACDF [address] CLAYTON GOFF. PMH/Recent major surgery: GALLBLADDER REMOVAL 2012. LUMPECTOMY AND RADIATION MAR 2020 INTO 2020. LEFT EYE BLINDNESS. HTN. TYROID DZ. - Objective Sitting Posture/Standing Posture: POOR. FH. RS'S. Active Correction of posture: BETTER. Other Observations: INDEP GAIT AND TRANSFERS. Motor deficit: MARNI UE'S 5/5 WITH MMT'ING EXCEPT SHLDS 4/5. MARNI GRIB STRENGTH 50 LBS. Sensory deficit: MARNI UE LIGHT TOUCH SENSATION GROSSLY INTACT AND SYMMETRICAL. ROM deficit: MARNI UE'S WFL AND SYMMETRICAL. Reflexes: NT. Dural Signs: NEGATIVE. Cervical Mvmt Loss: Flex: NIL. Pro: NIL. Ext: MOD. Ret: ELLA. RSB: ELLA. LSB: MOD. R Rot: MOD. L Rot: MIN TO MOD. PATIENT C/O A LOT OF PULLING ON NECK RIGHT > LEFT WITH CERVICAL FLEXION AND RIGHT SB AND RIGHT ROT. Postural strength: POOR. Palpation: INCREASED MUSCLE TONE MARNI POSTERIOR CERVICAL MUSCULATURE INTO UPPER BACK. NO ACUTE TENDERNESS OF CERVICAL OR UPPER THORACIC SPINE. TREATMENT: NEUROMUSCULAR REEDUCATION - RETRAINING OF MVMT AND POSTURE FOR SITTING, LYING AND STANDING ACTIVITIES. - Balance/Special Test Scores Oswestry Neck Score: 5 - Goals Goal 1:: DECREASE C/O NECK AND MARNI UE SX'S. Goal Time Frame: 4-6 Weeks Goal 2:: IMPROVE READING, SLEEP AND RECREATIONAL FUNCTION. Goal Time Frame: 4-6 Weeks Goal 3:: INSTRUCT IN PROPHYLAXIS Goal Time Frame: 4-6 Weeks - Anticipated Interventions Patient/Client Instruction: Educate patient on: Condition, Plan of Care, Risk Factors For the Purpose of:: To improve self management Therapeutic Exercise to Include: Strength training, Body mechanics, Postural training, Flexibilty training, Neuromotor development, Scapular Strength/Stabilization For the Purpose of:: To decrease pain, To increase ROM, To improve muscle performance and motor function, To increase tolerance to activity/condition/position, To improve ability of physical actions for home/community/work/leisure Thank you for the opportunity to evaluate your patient. For Medicare and Medicare HMO plans, please review the plan of care and approve it. It will need to be FAXED BACK to us at [phone] for Medicare purposes. For Medicare only, by signing this I certify the plan of care. Please let me know if there are questions or concerns regarding this plan of care. Physician Signature: Date:
--- NOTE | 2021-03-30 09:48 | HP.PTDCSUM ---
It has been my pleasure to treat LAI WEST referred by GAGE Huerta, with the diagnosis of DDD CERVICAL SPINE for a total of 5 visit(s). Discharge Date: 03/30/21 Please see the following information for a summary of their discharge status. Subjective: PATIENT REPORTS SHE IS DOING REAL WELL. STATES SHE REALLY LIKES THE BAND EX'S AND THEY SEEM TO HELP A LOT. PATIENT REPORTS SHE THINKS IF SHE KEEPS DOING THE EX'S SHE WILL BE GOOD. FEELS READY TO STOP COMING TO PT. ORDERED A TENS UNIT TOO. VERY RARE OCCASSIONAL ARM PAIN AND TINGLING (NO NUMBNESS) THAT IS BRIEF IN THE EVENINGS AND GOES AWAY WITH MVMT. NECK Pain Intensity (Out of 10): 1 UPPER BACK Pain Intensity (Out of 10): 1 RIGHT UE Pain Intensity (Out of 10): 0 LEFT UE Pain Intensity (Out of 10): 0 % Improvement: 98 Objective/Function: PATIENT WAS SEEN TODAY FOR RE-ASSESSMENT OF PROGRESS TOWARD THE SET PT GOALS AND THE NEED FOR FURTHER PHYSICAL THERAPY VS READINESS FOR DISCHARGE. ALL GOALS MET. PATIENT IS APPROPRIATE FOR DISCHARGE TO INDEP EX AND PHYSICIAN FOLLOW UP NEEDED. UPON EXAM TODAY: Cervical Mvmt Loss: Flex: NIL. Pro: NIL. Ext: MOD. Ret: MOD. RSB: MOD. LSB: MOD. R Rot: MOD. L Rot: MIN. PATIENT DENIES PAIN AND PULLING WITH CERVICAL ROM TESTING. Postural strength: POOR. Palpation: INCREASED MUSCLE TONE MARNI POSTERIOR CERVICAL MUSCULATURE INTO UPPER BACK. MARNI UE ROM AND STRENGTH WFL BUT RIGHT SHLD TIGHTNESS > LEFT AND THIS IS THE SIDE SHE HAD BREAST CANCER ON A YEAR AGO. Goal 1:: DECREASE C/O NECK AND MARNI UE SX'S. Goal Progress: Goal Met Goal 2:: IMPROVE READING, SLEEP AND RECREATIONAL FUNCTION. Goal Progress: Goal Met Goal 3:: INSTRUCT IN PROPHYLAXIS Goal Progress: Goal Met Plan: POSTURE CORRECTION/STRENGTHENING, INSTRUCTION IN APPROPRIATE BODY MECHANICS AND ACTIVITY MODIFICATIONS. MARNI UE ROM, STRETCHING AND STRENGTHENING. HEP INSTRUCTION. CONSIDER: REP RET IN SITTING. REP RET IN LYING. SCAP SQUEEZES. DEEP NECK FLEXOR LIFT. PRONE W'S. UE WALL SLIDES. PRONE ROWS. UE TBAND WALL WALKS. ANTERIOR/MIDDLE SCALENE STRETCH. UPPER TRAP STRETCH. LEVATOR SCAPULAE STRETCH. CHEST/PEC MAJOR AND MINOR STRETCH If there are questions or concerns regarding this patient's physical therapy, please feel free to call me at [phone]. Thank you for the referral of this patient. Sincerely, Betty Babcock, PT, Cert MDT Balance/Gait/Functional tests - Balance/Special Test Scores Oswestry Neck Score: 1
== END 2021-03-30 19:00 | disposition home or self-care (01) ==
LOC: PT 09:00
PROVIDERS: PCP Family Medicine; Referring Provider Nurse Practitioner; Visit Provider Nurse Practitioner
DX: M50.30 Other cervical disc degeneration, unspecified cervical region (principal)
CPT/HCPCS: 97014; 97110; 97112; 97162; 97164; 97530; G0283

== ENCOUNTER → 2021-03-30 09:53 | Outpatient (CLI) | payer OTHER, SELFPAY ==
[2021-03-30 13:02] LABS: Progesterone Level 0.23 ng/mL (See Comment)
[2021-03-30 13:05] LABS: Estradiol 14.9 pg/mL; Free T3 3.8 pg/mL (2.18-3.98)
[2021-03-31 10:08] LABS: DHEA Sulfate 58.2 ug/dL (29.4-220.5)
== END ==
PROVIDERS: PCP Family Medicine; Referring Provider Specialist; Visit Provider Specialist
DX: N95.1 Menopausal and female climacteric states (principal); E03.9 Hypothyroidism, unspecified; E27.9 Disorder of adrenal gland, unspecified
CPT/HCPCS: 36415; 82627; 82670; 84144; 84403; 84481; 82626

== ENCOUNTER 2021-07-10 13:14 | Outpatient (CLI) | payer OTHER, SELFPAY ==
[2021-07-10 15:37] LABS: Progesterone Level 0.34 ng/mL (See Comment)
[2021-07-10 16:43] LABS: Estradiol 34.1 pg/mL; Free T3 3.4 pg/mL (2.18-3.98)
[2021-07-13 15:57] LABS: DHEA Sulfate 96.9 ug/dL (29.4-220.5)
== END 2021-07-10 23:59 | disposition home or self-care (01) ==
LOC: MTLAB 13:16
PROVIDERS: PCP Family Medicine; Referring Provider Specialist; Visit Provider Specialist
DX: N95.1 Menopausal and female climacteric states (principal); E27.9 Disorder of adrenal gland, unspecified; E03.9 Hypothyroidism, unspecified
CPT/HCPCS: 36415; 82627; 82670; 84144; 84403; 84481; 82626

== ENCOUNTER → 2021-10-17 | Outpatient (CLI) | payer OTHER, SELFPAY ==
[2021-10-17 12:27] LABS: Progesterone Level 0.35 ng/mL (See Comment)
[2021-10-17 12:48] LABS: Estradiol 23.7 pg/mL; Free T3 4.5 pg/mL (2.18-3.98); Thyroid Stim Hormone (TSH) 1.74 uIU/mL (0.358-3.74)
== END | disposition home or self-care (01) ==
LOC: MTLAB 09:38
PROVIDERS: PCP Family Medicine; Referring Provider Nurse Practitioner Family; Visit Provider Nurse Practitioner Family
DX: E03.9 Hypothyroidism, unspecified (principal); N95.1 Menopausal and female climacteric states
CPT/HCPCS: 36415; 82670; 84144; 84403; 84443; 84481

== ENCOUNTER → 2021-12-19 | Outpatient (CLI) | payer OTHER, SELFPAY ==
[2021-12-19 09:58] LABS: Absolute Lymphocyte Count 1.85 X10^3/uL (0.83-4.51); Absolute Neutrophil Count 3.6 X10^3/uL (2.0-7.7); Basophil# 0.04 X10^3/uL; Basophil% 0.7 % (0-1); Eosinophils% 3.3 % (0-5); Hematocrit 45.6 % (37-47); Hemoglobin 15.4 g/dL (12.0-15.0); Lymphocyte # 1.85 X10^3/ul (0.83-4.51); Lymphocyte % 30.5 % (19-41); Mean Corp Hgb Conc 33.8 g/dL (32-36); Mean Corpuscular Hgb 30.5 pg (27.0-32.0); Mean Corpuscular Volume 90.3 fL (81-99); Mean Platelet Vol. 10.4 fl (6.2-12.0); Monocyte# 0.35 X10^3/uL; Monocyte% 5.8 % (0-10); NRBC Flagged by Analyzer 0 % (0-5); Neutrophil # 3.62 X10^3/uL (2.7-7.7); Neutrophil % 59.5 % (47-70); Platelet Count 303 K/mm3 (150-450); RBC Distribution Width CV 14.3 % (11.6-14.6); RBC Distribution Width SD 47.1 fl (35.1-43.9); Red Blood Count 5.05 M/mm3 (4.2-5.4); White Blood Count 6.1 K/mm3 (4.4-11.0)
[2021-12-19 10:12] LABS: Progesterone Level 0.38 ng/mL (See Comment)
[2021-12-19 10:14] LABS: ALB/GLOB Ratio 0.8 RATIO (0.9-2.4); AST(SGOT) 23 U/L (15-37); Alanine Aminotransfer ALT/SGPT 30 U/L (13-56); Albumin, Serum 3.3 g/dL (3.2-5.0); Alkaline Phosphatase 99 U/L (45-117); Anion Gap 8 (5-15); BUN 13 mg/dL (7-18); BUN/Creat Ratio 13.6 RATIO (10-20); Chloride 107 mmol/L (98-107); Cholesterol 173 mg/dL (200); Creatinine, Serum 0.96 mg/dL (0.55-1.02); EST Glomerular Filtration Rate 62 mL/min (>60); Est Glom Filt Rate - Afr Amer 76 mL/min (>60); Globulin 3.9 g/dL (2.2-4.2); Glucose 93 mg/dL (74-106); High Density Lipoprotein 45 mg/dL; Potassium 3.8 mmol/L (3.5-5.1); Protein, Total 7.2 g/dL (6.4-8.2); Sodium Level 143 mmol/L (136-145); Triglycerides 95 mg/dL; Very Low Density Lipoprotein 19 mg/dL (5-40)
[2021-12-19 10:29] LABS: Estradiol 17.3 pg/mL; Free T3 2.5 pg/mL (2.18-3.98); T4 Free Direct 0.71 ng/dL (0.76-1.46)
[2021-12-20 08:15] LABS: DHEA Sulfate 66.4 ug/dL (29.4-220.5)
== END | disposition home or self-care (01) ==
LOC: MTLAB 07:46
PROVIDERS: Specialist; PCP Family Medicine; Referring Provider Family Medicine; Visit Provider Family Medicine
DX: E03.8 Other specified hypothyroidism (principal); E27.9 Disorder of adrenal gland, unspecified; N95.1 Menopausal and female climacteric states; Z00.00 Encounter for general adult medical examination without abnormal findings; H81.10 Benign paroxysmal vertigo, unspecified ear; I10 Essential (primary) hypertension
CPT/HCPCS: 36415; 80053; 80061; 82627; 82670; 84144; 84403; 84439; 84443; 84481; 85025; 82626

== ENCOUNTER → 2022-01-25 | Outpatient (CLI) | payer OTHER, SELFPAY ==
--- NOTE | 2022-01-25 12:46 | BI_ITS ---
MAMMOGRAPHY - BILATERAL SCREENING REASON FOR EXAM: Female, 66 years old. Routine annual screening examination. PERTINENT HISTORY: Personal history of breast cancer. Prior right lumpectomy with radiation therapy. Mother with breast cancer. TECHNIQUE: Digital bilateral breast vida (3D mammographic acquisition) in the CC and MLO projections. 2-D mediolateral oblique (MLO) and craniocaudad (CC) views of both breasts were obtained. CAD: Full Field Digital Mammography with Computer Added Detection was performed. COMPARISON: Comparison is made with prior examination dated 01/16/2021 and 02/10/2020. FINDINGS: Breast Composition: There are scattered areas of fibroglandular density. There are no dominant masses or suspicious calcifications. Once again, the patient is status post lumpectomy in the upper lateral aspect of the right breast with residual postoperative scarring and breast deformity. Surgical clips are also seen in the right axillary region. No other significant abnormalities are identified. There has been no significant change since the prior study. BI/SCRN MAMM (CAD)W/VIDA BILAT IMPRESSION: Stable bilateral screening mammogram. Yearly follow-up mammogram recommended. (A) ASSESSMENT CATEGORY: BIRADS Category 2: Benign. A letter regarding these results will be sent to the patient by the facility within 30 days. Approximately 10% of breast cancers are not detected by mammography. A normal mammogram should not delay biopsy of a clinically suspicious abnormality. [id number] Electronically Signed: Rico Finley MD at 13:33 EDT ,
== END | disposition home or self-care (01) ==
LOC: OPBI 12:45
PROVIDERS: PCP Family Medicine; Visit Provider Specialist
DX: Z12.31 Encounter for screening mammogram for malignant neoplasm of breast (principal); Z80.3 Family history of malignant neoplasm of breast
CPT/HCPCS: 77063; 77067

== ENCOUNTER → 2022-03-19 | Outpatient (CLI) | payer OTHER, SELFPAY ==
[2022-03-19 09:55] LABS: Absolute Lymphocyte Count 3.01 X10^3/uL (0.83-4.51); Basophil# 0.02 X10^3/uL; Basophil% 0.2 % (0-1); Hematocrit 47.7 % (37-47); Hemoglobin 16.1 g/dL (12.0-15.0); Lymphocyte # 3.01 X10^3/ul (0.83-4.51); Lymphocyte % 23.5 % (19-41); Mean Corp Hgb Conc 33.8 g/dL (32-36); Mean Corpuscular Hgb 30.1 pg (27.0-32.0); Mean Corpuscular Volume 89.3 fL (81-99); Mean Platelet Vol. 10.5 fl (6.2-12.0); Monocyte# 0.72 X10^3/uL; Monocyte% 5.6 % (0-10); NRBC Flagged by Analyzer 0 % (0-5); Neutrophil # 8.95 X10^3/uL (2.7-7.7); Neutrophil % 69.9 % (47-70); Platelet Count 352 K/mm3 (150-450); RBC Distribution Width CV 14.6 % (11.6-14.6); RBC Distribution Width SD 47.8 fl (35.1-43.9); Red Blood Count 5.34 M/mm3 (4.2-5.4); White Blood Count 12.8 K/mm3 (4.4-11.0)
[2022-03-19 10:14] LABS: Progesterone Level 0.36 ng/mL (See Comment)
[2022-03-19 10:27] LABS: Estradiol 29.6 pg/mL; T4 Free Direct 0.78 ng/dL (0.76-1.46); Thyroid Stim Hormone (TSH) 0.81 uIU/mL (0.358-3.74)
== END | disposition home or self-care (01) ==
PROVIDERS: PCP Family Medicine; Referring Provider Specialist; Visit Provider Specialist
DX: N95.1 Menopausal and female climacteric states (principal); E03.9 Hypothyroidism, unspecified; R53.83 Other fatigue
CPT/HCPCS: 36415; 82670; 84144; 84403; 84439; 84443; 84481; 85025

== ENCOUNTER → 2022-06-26 | Outpatient (CLI) | payer OTHER, SELFPAY ==
[2022-06-26 10:28] LABS: Progesterone Level 0.23 ng/mL (See Comment)
[2022-06-26 11:10] LABS: Free T3 2.5 pg/mL (2.18-3.98); Thyroid Stim Hormone (TSH) 2.46 uIU/mL (0.358-3.74)
== END | disposition home or self-care (01) ==
LOC: MTLAB 07:39
PROVIDERS: PCP Family Medicine; Referring Provider Specialist; Visit Provider Specialist
DX: E03.9 Hypothyroidism, unspecified (principal); N95.1 Menopausal and female climacteric states
CPT/HCPCS: 36415; 82670; 84144; 84403; 84443; 84481

== ENCOUNTER → 2022-09-24 | Outpatient (CLI) | payer OTHER, MEDICARE, SELFPAY ==
[2022-09-24 10:21] LABS: Progesterone Level 0.26 ng/mL (See Comment)
[2022-09-24 10:24] LABS: Estradiol 20.6 pg/mL; Free T3 2.3 pg/mL (2.18-3.98); Thyroid Stim Hormone (TSH) 3.69 uIU/mL (0.358-3.74)
== END | disposition home or self-care (01) ==
LOC: MTLAB 07:30
PROVIDERS: PCP Family Medicine
DX: E03.9 Hypothyroidism, unspecified (principal); N95.1 Menopausal and female climacteric states
CPT/HCPCS: 36415; 82670; 84144; 84403; 84443; 84481

== ENCOUNTER → 2022-11-08 | Outpatient (CLI) | payer MEDICARE, OTHER, SELFPAY ==
--- NOTE | 2022-11-08 12:58 | CT_ITS ---
STUDY: CT MAXILLOFACIAL SINUSES REASON FOR EXAM: Female, 67 years old. CHRONIC SINUSITIS RADIATION DOSAGE (If Supplied By Facility): CTDIvol = ( 28.14 ) mGy, DLP = ( 647.7 ) mGycm TECHNIQUE: The patient was scanned in a multi detector CT scanner. High resolution axial imaging was performed without the administration of intravenous contrast material. Sagittal and coronal images were reconstructed. Individualized dose optimization techniques were used for this CT. COMPARISON: None. FINDINGS: FRONTAL SINUSES: Normal aeration, without mucosal inflammatory disease. ETHMOIDAL SINUSES: Normal aeration, without mucosal inflammatory disease. MAXILLARY SINUSES: There is nodular mucosal thickening of the right maxillary sinus. SPHENOIDAL SINUSES: Normal aeration, without mucosal inflammatory disease. There is patency of the bilateral maxillary infundibuli with normal uncinate processes, ethmoid bullae, and hiatus semilunaris. Normal bilateral middle turbinates. Normal bilateral inferior turbinates. Normal midline nasal septum. There is patency of the bilateral nasal airways. The visualized osseous structures are normal. The visualized bilateral orbital contents are normal. CT/Sinus/Facial Bone IMPRESSION: Nodular mucosal thickening of the right maxillary sinus. Electronically Signed: Rico Finley MD at 14:13 EDT ,
== END | disposition home or self-care (01) ==
LOC: CT 12:56
PROVIDERS: PCP Family Medicine; Referring Provider Family Medicine; Visit Provider Family Medicine
DX: J32.9 Chronic sinusitis, unspecified (principal)
CPT/HCPCS: 70486

== ENCOUNTER → 2022-12-04 | Outpatient (CLI) | payer MEDICARE, OTHER, SELFPAY ==
[2022-12-04 10:32] LABS: Absolute Lymphocyte Count 2.22 X10^3/uL (0.83-4.51); Absolute Neutrophil Count 3.2 X10^3/uL (2.0-7.7); Basophil# 0.04 X10^3/uL; Basophil% 0.7 % (0-1); Eosinophil# 0.12 X10^3/uL; Hematocrit 47.3 % (37-47); Hemoglobin 15.5 g/dL (12.0-15.0); Lymphocyte # 2.22 X10^3/ul (0.83-4.51); Lymphocyte % 36.8 % (19-41); Mean Corp Hgb Conc 32.8 g/dL (32-36); Mean Corpuscular Hgb 29.5 pg (27.0-32.0); Mean Corpuscular Volume 90.1 fL (81-99); Mean Platelet Vol. 10.4 fl (6.2-12.0); Monocyte# 0.46 X10^3/uL; Monocyte% 7.6 % (0-10); NRBC Flagged by Analyzer 0 % (0-5); Neutrophil # 3.17 X10^3/uL (2.7-7.7); Neutrophil % 52.6 % (47-70); Platelet Count 288 K/mm3 (150-450); RBC Distribution Width CV 15.2 % (11.6-14.6); RBC Distribution Width SD 50.4 fl (35.1-43.9); Red Blood Count 5.25 M/mm3 (4.2-5.4)
[2022-12-04 11:48] LABS: ALB/GLOB Ratio 0.9 RATIO (0.9-2.4); AST(SGOT) 31 U/L (15-37); Alanine Aminotransfer ALT/SGPT 36 U/L (13-56); Albumin, Serum 3.1 g/dL (3.2-5.0); Alkaline Phosphatase 83 U/L (45-117); Anion Gap 8 (5-15); BUN 16 mg/dL (7-18); BUN/Creat Ratio 16.5 RATIO (10-20); Calcium,Total 8.7 mg/dL (8.5-10.1); Chloride 111 mmol/L (98-107); Cholesterol 184 mg/dL (200); Creatinine, Serum 0.97 mg/dL (0.55-1.02); EST Glomerular Filtration Rate 61 mL/min (>60); Est Glom Filt Rate - Afr Amer 74 mL/min (>60); Globulin 3.6 g/dL (2.2-4.2); Glucose 106 mg/dL (74-106); High Density Lipoprotein 48 mg/dL; Potassium 3.9 mmol/L (3.5-5.1); Protein, Total 6.7 g/dL (6.4-8.2); Sodium Level 141 mmol/L (136-145); Thyroid Stim Hormone (TSH) 3.16 uIU/mL (0.358-3.74); Triglycerides 93 mg/dL; Very Low Density Lipoprotein 19 mg/dL (5-40)
[2022-12-04 14:51] LABS: Progesterone Level 0.22 ng/mL (See Comment); Vitamin D,25 Hydroxy 59.3 ng/mL
[2022-12-05 04:07] LABS: DHEA Sulfate 42.4 ug/dL (20.4-186.6)
== END | disposition home or self-care (01) ==
LOC: MTLAB 08:27
PROVIDERS: PCP Family Medicine; Referring Provider Family Medicine; Visit Provider Family Medicine
DX: I10 Essential (primary) hypertension (principal); E27.8 Other specified disorders of adrenal gland; E55.9 Vitamin D deficiency, unspecified; E78.5 Hyperlipidemia, unspecified; E03.9 Hypothyroidism, unspecified; N95.1 Menopausal and female climacteric states
CPT/HCPCS: 36415; 80053; 80061; 82306; 82627; 82670; 84144; 84403; 84443; 84481; 85025; 82626

== ENCOUNTER → 2023-01-04 | Outpatient (CLI) | payer MEDICARE, OTHER, SELFPAY ==
--- NOTE | 2023-01-04 14:09 | CT_ITS ---
EXAM: CT RIGHT LOWER EXTREMITY WITHOUT INTRAVENOUS CONTRAST CLINICAL INDICATION: PRE-OP TECHNIQUE: Helically acquired images were obtained of the right lower extremity without intravenous contrast. 2-D reformats were performed by the technologist. CTDIvol = ( 20.10 ) mGy, DLP = ( 1298.16 ) mGycm This CT exam was performed using one or more of the following dose reduction techniques: automated exposure control, adjustment of the mA and/or kV according to patient size, and/or use of iterative reconstruction technique. COMPARISON: No relevant prior studies available. FINDINGS: BONES/JOINTS: Tricompartmental osteoarthrosis which is worse at the medial femorotibial compartment where there is moderate to severe disease. Mild lateral subluxation on a degenerative basis of the tibia relative to the femur. Moderate supratentorial joint effusion. Small/prominent plantar and posterior calcaneal enthesophytes. Ankle mortise is intact. Right hip is unremarkable for age. No acute or healing fracture. No unusual lytic or sclerotic lesions of bone. No intra-articular ossific bodies. No tibiotalar or posterior subtalar joint effusion. No osteochondral lesions at the tibiotalar articulation. SOFT TISSUES: No soft tissue masses or fluid collections about the ankle or knee. No soft tissue swelling or gas. No radiopaque foreign body. CT/Extremity Lower without Contra IMPRESSION: Preoperative planning study showing tricompartmental osteoarthrosis of the knee which is worse at the medial femorotibial compartment. Electronically Signed: Ottoniel Orellana MD at 2:55 EDT ,
--- NOTE | 2023-01-04 14:09 | EKG12_ITS ---
Test Reason : PRE OP Blood Pressure : / mmHG Vent. Rate : 100 BPM Atrial Rate : 100 BPM P-R Int : 164 ms QRS Dur : 080 ms QT Int : 328 ms P-R-T Axes : 066 -64 080 degrees QTc Int : 423 ms Normal sinus rhythm Biatrial enlargement Left anterior fascicular block Left ventricular hypertrophy Abnormal ECG Confirmed by ALEXY PARKINSON, VIVIANE ([id number]), makeup editor NAOMI DAMON ([id number]) on 01/08/2023 12:19:17 PM Referred By: Quirino Savage Confirmed By:VIVIANE TRACEY MD
[2023-01-04 14:45] LABS: Absolute Lymphocyte Count 3.08 X10^3/uL (0.83-4.51); Basophil# 0.04 X10^3/uL; Basophil% 0.4 % (0-1); Eosinophil# 0.17 X10^3/uL; Eosinophils% 1.7 % (0-5); Hematocrit 46.9 % (37-47); Hemoglobin 15.5 g/dL (12.0-15.0); Lymphocyte # 3.08 X10^3/ul (0.83-4.51); Lymphocyte % 30.8 % (19-41); Mean Corpuscular Volume 90.9 fL (81-99); Mean Platelet Vol. 9.9 fl (6.2-12.0); NRBC Flagged by Analyzer 0 % (0-5); Neutrophil # 5.99 X10^3/uL (2.7-7.7); Neutrophil % 59.9 % (47-70); Platelet Count 298 K/mm3 (150-450); RBC Distribution Width CV 14.3 % (11.6-14.6); Red Blood Count 5.16 M/mm3 (4.2-5.4)
[2023-01-04 15:18] LABS: Albumin, Serum 3.4 g/dL (3.2-5.0); Anion Gap 2 (5-15); BUN 17 mg/dL (7-18); BUN/Creat Ratio 14.5 RATIO (10-20); Calcium,Total 9.2 mg/dL (8.5-10.1); Chloride 107 mmol/L (98-107); Creatinine, Serum 1.17 mg/dL (0.55-1.02); EST Glomerular Filtration Rate 49 mL/min (>60); Est Glom Filt Rate - Afr Amer 60 mL/min (>60); Glucose 108 mg/dL (74-106); Sodium Level 142 mmol/L (136-145)
== END | disposition home or self-care (01) ==
LOC: CT 14:06
PROVIDERS: PCP Family Medicine; Referring Provider Specialist; Visit Provider Specialist
DX: Z01.818 Encounter for other preprocedural examination (principal); M17.11 Unilateral primary osteoarthritis, right knee; M21.161 Varus deformity, not elsewhere classified, right knee; Z01.810 Encounter for preprocedural cardiovascular examination
CPT/HCPCS: 36415; 73700; 80048; 82040; 85025; 93005

== ENCOUNTER → 2023-01-28 | Outpatient (CLI) | payer MEDICARE, OTHER, SELFPAY ==
--- NOTE | 2023-01-28 10:33 | BI_ITS ---
MAMMOGRAPHY - BILATERAL SCREENING REASON FOR EXAM: Female, 67 years old. Routine annual screening examination. PERTINENT HISTORY: Personal history of breast cancer. Prior right lumpectomy and radiation treatment. Mother with breast cancer. TECHNIQUE: Digital bilateral breast vida (3D mammographic acquisition) in the CC and MLO projections. 2-D mediolateral oblique (MLO) and craniocaudad (CC) views of both breasts were obtained. CAD: Full Field Digital Mammography with Computer Added Detection was performed. COMPARISON: Comparison is made with prior study dated January 25, 2022 and January 16, 2021. FINDINGS: Breast Composition: There are scattered areas of fibroglandular density. There are no dominant masses or suspicious calcifications. Once again, the patient is status post lumpectomy in the upper lateral aspect of the right breast with resultant postoperative scarring and breast deformity. Surgical clips are also seen in the right axilla. No other significant abnormalities are identified. There has been no significant change since the prior study. BI/SCRN MAMM (CAD)W/VIDA BILAT IMPRESSION: Stable bilateral screening mammogram. Yearly follow-up mammogram recommended. (A) ASSESSMENT CATEGORY: BIRADS Category 2: Benign. A letter regarding these results will be sent to the patient by the facility within 30 days. Approximately 10% of breast cancers are not detected by mammography. A normal mammogram should not delay biopsy of a clinically suspicious abnormality. [id number] Electronically Signed: Rico Finley MD at 12:56 EDT ,
== END | disposition home or self-care (01) ==
PROVIDERS: PCP Family Medicine; Referring Provider Specialist; Visit Provider Specialist
DX: Z12.31 Encounter for screening mammogram for malignant neoplasm of breast (principal); Z85.3 Personal history of malignant neoplasm of breast; Z80.3 Family history of malignant neoplasm of breast
CPT/HCPCS: 77063; 77067

== ENCOUNTER → 2023-03-27 | Outpatient (CLI) | payer MEDICARE, OTHER, SELFPAY ==
[2023-03-27 18:14] LABS: Anion Gap 6 (5-15); BUN 14 mg/dL (7-18); BUN/Creat Ratio 15.5 RATIO (10-20); Calcium,Total 8.8 mg/dL (8.5-10.1); Chloride 106 mmol/L (98-107); EST Glomerular Filtration Rate 67 mL/min (>60); Est Glom Filt Rate - Afr Amer 80 mL/min (>60); Free T3 4.3 pg/mL (2.18-3.98); Glucose 105 mg/dL (74-106); Sodium Level 140 mmol/L (136-145); Thyroid Stim Hormone (TSH) 2.35 uIU/mL (0.358-3.74)
== END | disposition home or self-care (01) ==
LOC: MTLAB 14:27
PROVIDERS: PCP Family Medicine
DX: E03.9 Hypothyroidism, unspecified (principal); I10 Essential (primary) hypertension; R73.01 Impaired fasting glucose
CPT/HCPCS: 36415; 80048; 83036; 84439; 84443; 84481

== ENCOUNTER → 2023-06-22 | Outpatient (CLI) | payer MEDICARE, OTHER, SELFPAY ==
[2023-06-22 10:29] LABS: Estradiol < 11.0 pg/mL; Free T3 3.5 pg/mL (2.18-3.98)
== END | disposition home or self-care (01) ==
LOC: LAB 09:23
PROVIDERS: PCP Family Medicine
DX: N95.1 Menopausal and female climacteric states (principal); E03.9 Hypothyroidism, unspecified
CPT/HCPCS: 36415; 82670; 84403; 84443; 84481

== ENCOUNTER → 2023-07-31 | Outpatient (CLI) | payer MEDICARE, OTHER, SELFPAY ==
[2023-07-31 12:46] LABS: Estradiol 35.8 pg/mL; Free T3 4.2 pg/mL (2.18-3.98); Thyroid Stim Hormone (TSH) 2.43 uIU/mL (0.358-3.74)
[2023-07-31 13:04] LABS: Progesterone Level < 0.21 ng/mL (See Comment)
[2023-08-01 04:07] LABS: DHEA Sulfate 46.9 ug/dL (20.4-186.6)
== END | disposition home or self-care (01) ==
LOC: MTLAB 09:37
PROVIDERS: PCP Family Medicine
DX: E27.8 Other specified disorders of adrenal gland (principal); E03.9 Hypothyroidism, unspecified; N95.1 Menopausal and female climacteric states
CPT/HCPCS: 36415; 82627; 82670; 84144; 84403; 84443; 84481; 82626

== ENCOUNTER → 2023-10-28 | Outpatient (CLI) | payer MEDICARE, OTHER, SELFPAY ==
[2023-10-28 12:57] LABS: Estradiol 22.9 pg/mL
[2023-10-29 04:08] LABS: PROGESTERONE 0.3 ng/mL (.)
== END | disposition home or self-care (01) ==
LOC: MTLAB 10:06
PROVIDERS: PCP Family Medicine; Referring Provider Specialist; Visit Provider Specialist
DX: E03.9 Hypothyroidism, unspecified (principal); N95.1 Menopausal and female climacteric states
CPT/HCPCS: 36415; 82670; 84144; 84403; 84443

== ENCOUNTER → 2023-11-13 | Outpatient (CLI) | payer MEDICARE, OTHER, SELFPAY ==
--- NOTE | 2023-11-13 11:40 | VDLE_ITS ---
Reason For Study: swelling RIGHT LEFT GSV is normal. GSV is normal. CFV is compressible, spontaneous, phasic, CFV is compressible, spontaneous, phasic, competent and demonstrates normal competent, and demonstrates normal augmentation. augmentation. FV is compressible, spontaneous, phasic, FV is compressible, spontaneous, phasic, competent and demonstrates normal competent and demonstrates normal augmentation. augmentation. POP V is compressible, spontaneous, phasic, POP V is compressible, spontaneous, phasic, competent and demonstrates normal competent and demonstrates normal augmentation. augmentation. T/P Trunk is compressible. T/P Trunk is compressible. PTV is compressible. PTV is compressible. RT PerV is compressible. LT PerV is compressible. There is an hypoechoic non vascularized area noted in the proximal calf. Procedure This is a venous duplex using B-mode, color flow and spectral Doppler. Exam performed in department. VL/Venous Duplex US - Tommy Extrem Interpretation Summary Deep veins of the bilateral lower extremities are patent and compressible segme ntally. There is no evidence of bilateral lower extremity deep vein thrombosis. The bilateral great saphenous veins appear patent and compressible segmentally. There is an hypoechoic non vascularized area noted in the right proximal calf. Ordering Physician: Lyle Paige Referring Physician: Lyle Paige Performed By: Margarita Nye RVT
== END | disposition home or self-care (01) ==
LOC: CVS 11:36
PROVIDERS: PCP Family Medicine; Referring Provider Physician Assistant Surgical; Visit Provider Physician Assistant Surgical
DX: R22.43 Localized swelling, mass and lump, lower limb, bilateral (principal)
CPT/HCPCS: 93970

== ENCOUNTER → 2024-01-16 | Outpatient (CLI) | payer MEDICARE, OTHER, SELFPAY ==
[2024-01-16 12:28] LABS: Absolute Lymphocyte Count 2.35 X10^3/uL (0.83-4.51); Absolute Neutrophil Count 3.6 X10^3/uL (2.0-7.7); Basophil# 0.05 X10^3/uL; Basophil% 0.8 % (0-1); Eosinophil# 0.15 X10^3/uL; Eosinophils% 2.3 % (0-5); Hemoglobin 15.9 g/dL (12.0-15.0); Lymphocyte # 2.35 X10^3/ul (0.83-4.51); Lymphocyte % 35.8 % (19-41); Mean Corp Hgb Conc 33.1 g/dL (32-36); Mean Corpuscular Hgb 29.2 pg (27.0-32.0); Mean Corpuscular Volume 88.1 fL (81-99); Mean Platelet Vol. 10.4 fl (6.2-12.0); Monocyte# 0.35 X10^3/uL; Monocyte% 5.3 % (0-10); NRBC Flagged by Analyzer 0 % (0-5); Neutrophil # 3.64 X10^3/uL (2.7-7.7); Neutrophil % 55.5 % (47-70); Platelet Count 329 K/mm3 (150-450); RBC Distribution Width CV 14.6 % (11.6-14.6); RBC Distribution Width SD 46.6 fl (35.1-43.9); Red Blood Count 5.45 M/mm3 (4.2-5.4); White Blood Count 6.6 K/mm3 (4.4-11.0)
[2024-01-16 13:07] LABS: ALB/GLOB Ratio 0.9 RATIO (0.9-2.4); AST(SGOT) 30 U/L (15-37); Alanine Aminotransfer ALT/SGPT 37 U/L (13-56); Albumin, Serum 3.6 g/dL (3.2-5.0); Alkaline Phosphatase 81 U/L (45-117); Anion Gap 6 (5-15); BUN 13 mg/dL (7-18); BUN/Creat Ratio 11.7 RATIO (10-20); Calcium,Total 9.4 mg/dL (8.5-10.1); Chloride 109 mmol/L (98-107); Creatinine, Serum 1.11 mg/dL (0.55-1.02); EST Glomerular Filtration Rate 52 mL/min (>60); Est Glom Filt Rate - Afr Amer 63 mL/min (>60); Estradiol 19.9 pg/mL; Free T3 3.8 pg/mL (2.18-3.98); Globulin 3.8 g/dL (2.2-4.2); Glucose 125 mg/dL (74-106); Protein, Total 7.4 g/dL (6.4-8.2); Sodium Level 140 mmol/L (136-145)
[2024-01-22 12:09] LABS: DHEA Sulfate 35.8 ug/dL (20.4-186.6); PROGESTERONE <0.1 ng/mL (.)
== END | disposition home or self-care (01) ==
PROVIDERS: PCP Family Medicine; Referring Provider Nurse Practitioner Family; Visit Provider Nurse Practitioner Family
DX: E27.8 Other specified disorders of adrenal gland (principal); E03.9 Hypothyroidism, unspecified; N95.1 Menopausal and female climacteric states; I10 Essential (primary) hypertension
CPT/HCPCS: 36415; 80053; 82627; 82670; 84144; 84403; 84443; 84481; 85025; 82626

== ENCOUNTER → 2024-01-30 | Outpatient (CLI) | payer MEDICARE, OTHER, SELFPAY ==
--- NOTE | 2024-01-30 10:47 | BI_ITS ---
MAMMOGRAPHY - BILATERAL SCREENING REASON FOR EXAM: Female, 68 years old. Routine annual screening examination. PERTINENT HISTORY: Personal history of breast cancer. History of prior lumpectomy with radiation treatment. Mother with breast cancer. TECHNIQUE: Digital bilateral breast vida (3D mammographic acquisition) in the CC and MLO projections. 2-D mediolateral oblique (MLO) and craniocaudad (CC) views of both breasts were obtained. CAD: Full Field Digital Mammography with Computer Added Detection was performed. COMPARISON: Comparison is made with prior study dated January 28, 2023 and January 25, 2022. FINDINGS: Breast Composition: There are scattered areas of fibroglandular density. There are no dominant masses or suspicious calcifications. Which again, the patient is status post lumpectomy in the upper lateral aspect of the right breast with resultant postoperative scarring and breast deformity. Overlying skin thickening. Surgical clips are seen in the right axilla. No other significant abnormalities are identified. There has been no significant change since the prior study. BI/SCRN MAMM (CAD)W/VIDA BILAT IMPRESSION: Stable bilateral screening mammogram. Yearly follow-up mammogram recommended. (A) ASSESSMENT CATEGORY: BIRADS Category 2: Benign. A letter regarding these results will be sent to the patient by the facility within 30 days. Approximately 10% of breast cancers are not detected by mammography. A normal mammogram should not delay biopsy of a clinically suspicious abnormality. [id number] Electronically Signed: Rico Finley MD at 11:13 EDT ,
--- NOTE | 2024-01-30 10:47 | BD_ITS ---
STUDY: DUAL ENERGY X-RAY ABSORPTIOMETRY / DXA REASON FOR EXAM: Female, 68 years old. 733.00OsteoporosisBONE DENSITY REASON FOR EXAM TECHNIQUE: Bone Mineral Density (BMD) measurements of lumbar spine and bilateral hips were obtained. COMPARISON: Comparison is made with prior study dated October 18, 2020. FINDINGS: Lumbar Spine (L1-L4): g/cm2 (0.917) / T-score (-0.6) / Z-score (1.2) Findings are suggestive of normal bone density with a low fracture risk. Left Femur Total: g/cm2 (0.906) / T-score (-0.3) / Z-score (1.0) Left Femoral Neck: g/cm2 (0.699) / T-score (-1.3) / Z-score (0.2) Right Femur Total: g/cm2 (0.881) / T-score (-0.5) / Z-score (0.8) Right Femoral Neck: g/cm2 (0.669) / T-score (-1.6) / Z-score (0.0) The T-Scores on the most recent prior examination were: Lumbar Spine (L1-L4): There has been worsening of bone density since the previous examination. Left Femur Total: which represents an improvement of 2%. Right Femur Total: which represents a worsening of 3.5%. BD/Dexa Bone Density Study IMPRESSION: The patient is considered osteopenic as outlined below according to World Anibal Organization (WHO) criteria with a moderate fracture risk. There has been worsening of bone density since the previous examination. Reference Information: The T-score is the number of standard deviations above or below the standard which is normal for young adults at their peak bone mineral density. The World Health Organization (WHO) interprets the T-scores as follows: Above -1 Normal bone density Between -1 and -2.5 Osteopenia Equal to / or below -2.5 Osteoporosis As a practical clinical guideline, osteopenia may be graded as follows: Mild -1 through -1.5 Moderate -1.6 through -2.0 Severe -2.1 through -2.4 The Z-score is the number of standard deviations above or below age-matched controls. A Z-score of less than -1.5 would be considered abnormal. References: 1. NIH Osteoporosis and Related Bone Diseases www osteo.org 2. International Society for Clinical Densitometry www iscd.org 3. National Osteoporosis Foundation www nof.org Electronically Signed: Rico Finley MD at 13:07 EST ,
== END | disposition home or self-care (01) ==
LOC: OPBD 10:44
PROVIDERS: PCP Family Medicine; Referring Provider Specialist; Visit Provider Specialist
DX: Z12.31 Encounter for screening mammogram for malignant neoplasm of breast (principal); Z85.3 Personal history of malignant neoplasm of breast; Z80.3 Family history of malignant neoplasm of breast; M81.0 Age-related osteoporosis without current pathological fracture; Z13.820 Encounter for screening for osteoporosis
CPT/HCPCS: 77063; 77067; 77080

== ENCOUNTER → 2024-04-10 | Outpatient (CLI) | payer MEDICARE, OTHER, SELFPAY ==
[2024-04-10 12:21] LABS: Estradiol 21.9 pg/mL; Free T3 3.2 pg/mL (2.18-3.98)
[2024-04-11 08:10] LABS: DHEA Sulfate 44.9 ug/dL (20.4-186.6); PROGESTERONE 0.1 ng/mL (.)
== END | disposition home or self-care (01) ==
LOC: MTLAB 10:48
PROVIDERS: PCP Family Medicine; Referring Provider Nurse Practitioner Family; Visit Provider Nurse Practitioner Family
DX: E27.8 Other specified disorders of adrenal gland (principal); E03.9 Hypothyroidism, unspecified; N95.1 Menopausal and female climacteric states
CPT/HCPCS: 36415; 82627; 82670; 84144; 84403; 84443; 84481; 82626

== ENCOUNTER → 2024-06-18 | Outpatient (CLI) | payer MEDICARE, OTHER, SELFPAY ==
[2024-06-18 18:32] LABS: Estradiol 34.5 pg/mL; Free T3 3.9 pg/mL (2.18-3.98)
[2024-06-20 04:07] LABS: PROGESTERONE 0.1 ng/mL (.)
== END | disposition home or self-care (01) ==
LOC: MTLAB 13:53
PROVIDERS: PCP Family Medicine; Referring Provider Nurse Practitioner Family; Visit Provider Nurse Practitioner Family
DX: E27.8 Other specified disorders of adrenal gland (principal); E03.9 Hypothyroidism, unspecified; N95.1 Menopausal and female climacteric states
CPT/HCPCS: 36415; 82627; 82670; 84144; 84402; 84403; 84443; 84481; 82626

== ENCOUNTER → 2024-09-14 | Outpatient (CLI) | payer MEDICARE, OTHER, SELFPAY ==
[2024-09-14 16:34] LABS: Estradiol 33.9 pg/mL; Free T3 5.5 pg/mL (2.18-3.98)
[2024-09-16 04:07] LABS: PROGESTERONE 0.3 ng/mL (.)
== END | disposition home or self-care (01) ==
PROVIDERS: PCP Family Medicine; Referring Provider Nurse Practitioner Family; Visit Provider Nurse Practitioner Family
DX: E03.9 Hypothyroidism, unspecified (principal); N95.1 Menopausal and female climacteric states
CPT/HCPCS: 36415; 82670; 84144; 84403; 84443; 84481

== ENCOUNTER → 2025-02-01 | Outpatient (CLI) | payer MEDICARE, OTHER, SELFPAY ==
--- NOTE | 2025-02-01 13:09 | BI_ITS ---
EXAM: SCRN MAMM (CAD)W/VIDA BILAT DATE: 02/01/2025 CLINICAL HISTORY: F, Age 69 y/o , SCREENING TECHNIQUE: Procedure Code: [id number] Modality: MG Procedure: SCRN MAMM (CAD)W/VIDA BILAT COMPARISON: Prior exam(s) were compared FINDINGS: TISSUE DENSITY: There are scattered areas of fibroglandular density. Bilateral Breast Mammographic Findings: No significant masses, calcifications or other abnormalities are identified. Postsurgical changes in the right breast. BI/SCRN MAMM (CAD)W/VIDA BILAT IMPRESSION: No mammographic evidence of malignancy. OVERALL FINAL ASSESSMENT BI-RADS 2: BENIGN RECOMMENDATION: Routine annual follow-up in 1 Year Additional Recommendation none A letter with findings and recommendations will be mailed to the patient. Reading Location: [id number]
--- OUTSIDE RECORDS SUMMARY | 2025-02-01 17:21 | XMS RPT_ITS | CCD ---
Author Organization [facility] Care Team Providers Care Loss Prevention Lead Name Role Phone Kathy VAN-Kayleigh DAVIS Unavailable Michael PARKINSON MD, Brockung Unavailable Doup RN, Laila Unavailable Unavailable Madeline Mccarthy Primary Care Provider Michael PARKINSON MD, Brockung Unavailable Doup RN, Laila Unavailable Unavailable Madeline Mccarthy Primary Care Provider Michael PARKINSON MD, Song Unavailable Doup RN, Laila Unavailable Unavailable Madeline Mccarthy MD Primary Care Provider Mary Rivera APRN.CNP Unavailable Song Rodriguez MD Unavailable Dr. Madeline Mccarthy Primary Care Provider Dr. Madeline Mccarthy Referring Provider Familia RETAIL LINK ANALYST, RETAIL LINK ANALYST-C Haroon Arcos Attending Provider Madeline Mccarthy MD Primary Care Provider MARY RIVERA Attending Unavailable MADELINE MCCARTHY Primary Care Unavailable MARY RIVERA Attending Unavailable MARY RIVERA Referring Unavailable MADELINE MCCARTHY Primary Care Unavailable Dr. Madeline Mccarthy MD Primary Care Provider Jesica Ramirez Attending Provider [phone] Link PEREZ-Jesica Hilton Referring Provider Dr. Madeline Mccarthy MD Primary Care Provider Link MILLERCJesica Attending Provider Jesica Ramirez Referring Provider [phone] Mario Thomas Referring Unavailable [facility] Unavailable Mario Thomas Attending Unavailable Mario Thomas Referring Unavailable [facility] Unavailable Mario Thomas Attending Unavailable Jesica Maza Attending Unavailable Jesica Maza Referring Unavailable [facility] Unavailable Jesica Maza Attending Unavailable Jesica Maza Referring Unavailable [facility] Unavailable Jesica Maza Attending Unavailable Jesica Maza Referring Unavailable [facility] Unavailable Allergies Allergy Classification Reported Allergen(s) Allergy Type Date of Onset Reaction(s) Facility (1 source) Acetaminophen / oxyCODONE Drug Allergy 4 itching [facility] Work Phone: (1 source) amLODIPine Drug Allergy 9 [facility] Work Phone: (1 source) Lisinopril Drug Allergy 9 [facility] Work Phone: (19 sources) predniSONE; Translations: [PREDNISONE] Drug Allergy 4 [facility] Work Phone: (6 sources) Acetaminophen / oxyCODONE; Translations: [OXYCODONE-ACETAM INOPHEN] Drug Allergy 6 [facility] Work Phone: (18 sources) Cephalexin; Translations: [CEPHALEXIN] Drug Allergy 6 Rash, Diarrhea [facility] Work Phone: (12 sources) Amoxicillin Drug Allergy 1 Diarrhea [facility] (12 sources) ceFAZolin Drug Allergy 1 Unknown [facility] (13 sources) oxyCODONE; Translations: [oxycodone HCl] Drug Allergy 1 Rash [facility] (1 source) Amoxicillin Drug Allergy 3 [facility] Repository (1 source) ceFAZolin Drug Allergy 3 [facility] (1 source) Cephalexin Drug Allergy 3 [facility] (1 source) predniSONE Drug Allergy 3 [facility] Medications Current Medications Medication Drug Class(es) Dates Sig (Normalized) Sig (Original) amLODIPine 5 mg oral tablet (17 sources) Dihydropyridine Calcium Channel Devorah Start: 03-02-2020 take 1 tablet by mouth once daily Amlodipine 5 mg tablet Active 5 mg PO DAILY March 02, 2020 1:00am Comment on above: Take 5 mg by mouth o nce daily. calcium carbonate 1500 mg oral tablet (12 sources) Start: 03-07-2020 take 1 tablet by mouth once daily Calcium Carbonate 600 MG tablet Active 600 mg PO DAILY March 07, 2020 1:00am calcium carbonate 118 mg / prasterone 10 mg oral tablet (20 sources) Start: 01-10-2014 End: 03-02-2020 take 1 tablet by mouth once daily Prasterone (Dhea)-Calcium Carb 1 EACH tablet Active 1 NMA PO DAILY September 23, 2015 12:00am Start: 01-10-2014 End: 03-02-2020 Prasterone (Dhea)-Calcium Ca rb Active 1 EACH PO DAILY September 23, 2015 12:00am Calcium Carbonate / vitamin D3 (5 sources) take 1 tablet by alejandro th once daily calcium carbonate/vitamin D3 (CALCIUM 600 + D ORAL) Take 1 tablet by mouth once daily. Active take 1 tablet by mouth once mariah y calcium carbonate/vitamin D3 (CALCIUM 600 + D ORAL) Take 1 tablet by mouth once daily. 0 Active Comment on above: Take 1 tablet by alejandro th once daily. cholecalciferol 0.025 mg oral tablet (12 sources) Vitamin D Start: 03-07-20 take 1 tablet by mouth once daily Cholecalciferol (Vitamin D3) 25 MCG tablet Active 25 ug PO DAILY March 07, 2020 1:00am diphenhydrAMINE hydrochloride 25 mg oral tablet (5 sources) Histamine-1 Receptor Antagonist take 1 tablet by mouth every twenty-four hours as needed diphenhydrAMINE (BENADRYL ALLERGY) 25 mg tablet Take 25 mg by mouth at bedtime as needed. Active Comment on above: Take 25 mg by mouth at bedtime as needed. famotidine 40 mg oral tablet (12 sources) Histamine-2 Receptor Antagonist Start: 12-27-19 21 take 1 tablet by mouth twice daily Famotidine 40 mg tablet Active 40 mg PO TWICE A DAY December 26, 2020 12:00am Iodoral (12 sources) Start: 03-07-20 20 take 1 capsule by mouth every other day Iodoral Active 1 CAP PO EVERY OTHER DAY March 07, 2020 2:22pm Start: 03-07-2020 Iodoral Active 1 NMA PO EVERY OTHER DAY March 07, 2020 1:00am Start: 03-07-2020 take 1 capsule by mo [facility] every other day Iodoral Active 1 CAP PO EVERY OTHER DAY March 07, 2020 1:00am L.Acidoph, Paracasei,B. Lact is (10 sources) Start: 03-07-2020 L.Acidoph, Par acasei,B. Lactis Active 1 EACH PO DAILY March 07, 2020 2:22pm Start: 03-07-2020 L.Acidoph, Par acasei,B. Lactis Active 1 EACH PO DAILY March 07, 2020 1:00am L.Acidoph,Paracasei,B.Animal is 1 EACH capsule (2 sources) Start: 03-07-2020 take 1 capsule by mouth once daily L.Acidoph,Paracasei,B.Animalis 1 EACH capsule Active 1 NMA PO DAILY March 07, 2020 1:00am Lactobacillus acidophilus (5 sources) take 1 capsule by mouth once daily Lactobacillus acidophilus (PROBIOTIC ORAL) Take 1 capsule by mouth once daily. Active take 1 capsule by mouth once logan ly Lactobacillus acidophilus (PROBIOTIC ORAL) Take 1 capsule by mouth once daily. 0 Active Comment on above: Take 1 capsule by mo ut once daily. Multivitamin 1 TABLET tablet (2 sources) Start: 09-23-2015 Multivitamin 1 TABLET tablet Active 1 {tbl} PO DAILY September 23, 2015 12:00am Multivitamin preparation (10 sources) Start: 09-23-2015 take 1 tablet by mouth once daily Multivitamin Active 1 TABLET PO DAILY September 23, 2015 9:59am Start: 09-23-2015 take 1 tablet by alejandro th once daily Multivitamin Active 1 TABLET PO DAILY September 23, 2015 12:00am multivitamin tablet (5 sources) take 2 tablets by mo uth once daily multivitamin tablet Take 2 tablets by mouth once daily. Active take 2 tablets by mouth once logan ly multivitamin tablet Take 2 tablets by mouth once daily. 0 Active Comment on above: Take 2 tablets by mo uth once daily. OTC PRODUCT (17 sources) OTC PRODUCT Immu neti Advanced Immune Defense: Take one capsule twice daily. Active take 1 tablet by alejandro th every other day OTC PRODUCT Iodoral IOD 12.5: Take one tablet by mouth every other day. Active take 3 tablets by mo uth once daily OTC PRODUCT Nitric Oxide: Take three tablets by mouth once daily. Active End: 12-16-2023 take 1 scoop(s) by mouth once daily OTC PRODUCT Collagen: Take one scoop by mouth once daily. 12/16/2023 Discontinued (Patient chooses alternative therapy) take 1 scoop(s) by [facility] once daily OTC PRODUCT Collagen: Take one scoop by mouth once daily. 0 Active OTC PRODUCT Nitr ic Oxide: Take three tablets by mouth once daily. 0 Active OTC PRODUCT Immu neti Advanced Immune Defense: Take one capsule twice daily. 0 Active take 1 tablet by alejandro th every other day OTC PRODUCT Iodoral IOD 12.5: Take one tablet by mouth every other day. 0 Active Comment on above: Immuneti Advanced Im mune Defense: Take one capsule twice daily. Iodoral IOD 12.5: Ta ke one tablet by mouth every other day. Nitric Oxide: Take t hree tablets by mouth once daily. Collagen: Take one s coop by mouth once daily. prasterone, DHEA, (DHEA ORAL) (5 sources) take 1 tablet by mouth once daily prasterone, DHEA, (DHEA ORAL) Take 1 tablet by mouth once daily. Active take 1 tablet by mouth once mariah y prasterone, DHEA, (DHEA ORAL) Take 1 tablet by mouth once daily. 0 Active Comment on above: Take 1 tablet by alejandro th once daily. thyroid (assisted) 90 mg oral tablet (20 sources) Start: 03-02-2020 take 1 tablet by mouth once daily Thyroid (Pork) 90 mg tablet Active 100 mg PO DAILY March 02, 2020 1:00am Start: 03-02-2020 take 100 mg by mouth once mariah y Thyroid (Pork) Active 100 MG PO DAILY March 02, 2020 1:00am Start: 01-10-2014 End: 03-02-2020 take 1 tablet by mouth once daily Thyroid (Pork) 60 MG tablet Discontinued 75 mg PO DAILY January 10, 2014 12:00am March 02, 2020 11:22am Start: 01-10-2014 End: 03-02-2020 take 75 mg by mouth once daily Thyroid (Pork) Disconti nued 75 MG PO DAILY January 10, 2014 12:00am March 02, 2020 11:22am Comment on above: Take 90 mg by mouth once daily. thyroid,pork (ARMOUR THYROID ORAL) (2 sources) take 100 mg by mouth once daily thyroid,pork (ARMOUR THYROID ORAL) Take 100 mg by mouth once daily. Active take 100 mg by mouth once daily thyroid,pork (ARMOUR THYROID ORAL) Take 100 mg by mouth once daily. 0 Active Comment on above: Take 100 mg by mouth once daily. Turmeric Root Extract (16 sources) Start: 03-07-2020 take 500 mg by mouth once daily Turmeric Root Extract Active 500 MG PO DAILY March 07, 2020 2:22pm Start: 03-07-2020 End: 03-03-2023 take 1 capsule by mouth once daily Turmeric Root Extract 500 MG capsule Discontinued 500 mg PO DAILY March 07, 2020 1:00am March 03, 2023 9:36am Start: 03-07-2020 End: 03-03-2023 take 500 mg by mouth once daily Turmeric Root Extract Discontinued 500 MG PO DAILY March 07, 2020 1:00am March 03, 2023 9:36am Start: 03-07-2020 take 500 mg by mouth once mariah y Turmeric Root Extract Active 500 MG PO DAILY March 07, 2020 1:00am End: 05-28-2023 take 2 tablets by mouth once daily TURMERIC ORAL Take 2 tablets by mouth once daily. 0 05/28/2023 Discontinued take 2 tablets by mo uth once daily TURMERIC ORAL Take 2 tablets by mouth once daily. 0 Active Comment on above: Take 2 tablets by mo uth once daily. Completed/Discontinued Medications Medication Drug Class(es) Dates Sig (Normalized) Sig (Original) acetaminophen 325 mg / HYDROcodone bitartrate 5 mg oral tablet (20 sources) Opioid Agonist Start: 03-22-2020 End: 12-26-2020 Hydrocodone-Acetami nophen ([place]) 5-325 mg tablet Discontinued 1 {tbl} PO EVERY 6 HOURS as needed for pain March 22, 2020 December 26, 2020 12:44pm Start: 03-10-2020 End: 03-15-2020 Hydrocodone-Acetaminophen 1 EACH tablet Discontinued 1 - 2 {tbl} PO EVERY 6 HOURS NEEDED as needed for Pain Score 4-10/10 30 March 10, 2020 March 14, 2020 1:00am March 15, 2020 1:02am Start: 03-10-2020 End: 03-15-2020 take 1 tablet by mouth every six hours as needed Hydrocodone-Acetaminophen Discontinued 1 - 2 TABLET PO EVERY 6 HOURS NEEDED 30 March 10, 2020 March 15, 2020 1:02am amoxicillin 875 mg / clavulanate 125 mg oral tablet (16 sources) Penicillin-class Antibacterial Start: 03-03-2023 End: 03-10-2023 Amoxicillin-Pot Clavulanate 875-125 mg tablet Discontinued 1 {tbl} PO TWICE A DAY 14 March 03, 2023 1:00am March 09, 2023 1:00am March 10, 2023 1:04am Start: 03-03-2023 End: 03-10-2023 take 1 tablet by mouth twice daily Amoxicillin-Pot Clavulanate Discontinued 1 TABLET PO TWICE A DAY 14 March 03, 2023 1:00am March 10, 2023 1:04am Start: 03-22-2020 End: 04-04-2020 Amoxicillin-Pot Clavulanate (Augmentin) 875-125 mg tablet Discontinued 1 {tbl} PO TWICE A DAY March 22, 2020 1:00am April 04, 2020 9:50am glucosamine HCl/chondroitin roberts (GLUCOSAMINE-CHONDROITIN ORAL) (2 sources) End: 05-28-2023 take 2 tablets by mouth once daily glucosamine HCl/chondroitin roberts (GLUCOSAMINE-CHONDROITIN ORAL) Take 2 tablets by mouth once daily. 0 05/28/2023 Discontinued take 2 tablets by mo ut once daily glucosamine HCl/chondroitin roberts (GLUCOSAMINE-CHONDROITIN ORAL) Take 2 tablets by mouth once daily. 0 Active Comment on above: Take 2 tablets by mo ut once daily. Magnesium (2 sources) End: 05-28-2023 take 1 tablet by mouth once daily MAGNESIUM ORAL Take 1 tablet by mouth once daily. 0 05/28/2023 Discontinued take 1 tablet by mouth once mariah y MAGNESIUM ORAL Take 1 tablet by mouth once daily. 0 Active Comment on above: Take 1 tablet by [facility] once daily. NUTRITIONAL SUPPLEMENTS CAPS (1 source) Start: 3 DHEA CAPS 1 capsule 5 mg daily NUTRITIONAL SUPPLEMENTS CAPS [id number] [employer] pantoprazole 40 mg delayed release oral tablet (12 sources) Proton Pump Inhibitor Start: 1 End: 1 take 1 tablet by mouth once daily Pantoprazole (Protonix) 40 mg tablet,delayed release (DR/EC) Discontinued 40 mg PO DAILY November 18, 2020 12:00am December 26, 2020 12:44pm PORCINE THYROID 100 MG CAPSULES (1 source) Start: 9 PORCINE THYROID 100 MG CAPSULES 1 capsule daily PORCINE THYROID 100 MG CAPSULES [employer] WORKER potassium gluconate 2.5 meq oral tablet (12 sources) Start: 6 End: 3 take 1 tablet by mouth once daily Potassium 99 MG tablet Discontinued 99 mg PO DAILY September 23, 2015 12:00am March 03, 2023 9:36am POTASSIUM-99 ORAL (4 sources) Start: 6 End: 4 take 1 capsule by mouth once daily POTASSIUM-99 ORAL Take 1 capsule by mouth once daily. 0 09/23/2015 05/28/2023 Discontinued Start: 09-23-2015 take 1 capsule by [facility] once daily POTASSIUM-99 ORAL Take 1 capsule by mouth once daily. 0 09/23/2015 Active Comment on above: Take 1 capsule by [facility] once daily. progesterone 100 mg oral capsule (1 source) Progesterone Start: 12-17-19 13 PROGESTERONE MICRONIZED 100 MG CAPS 2 capsules daily PROGESTERONE MICRONIZED [id number] [employer] WORKER sucralfate 1000 mg oral tablet (12 sources) Aluminum Complex Start: 01-06-20 21 End: 03-03-20 23 take 1 tablet by mouth every six hours Sucralfate 1 gram tablet Discontinued 1 g PO EVERY 6 HOURS 120 January 05, 2021 12:00am March 03, 2023 9:36am vitamin b12 5 mg oral capsule (12 sources) Vitamin B12 Start: 03-07-20 End: 12-27-19 21 take 1 capsule by mouth once daily Cyanocobalamin (Vitamin B-12) 5,000 MCG capsule Discontinued 5000 ug PO DAILY March 07, 2020 1:00am December 26, 2020 12:44pm Problems Active Problems Problem Classification Problem Date Documented Da te Episodic/Chronic Abdominal pain (20 sources) Epigastric pain; Translations: [Epigastric pain] Onset: 09-01-2015 09-01-2015 Episodic Anxiety disorders (12 sources) Anxiety; Translations: [Anxiety disorder, unspecified] 03-10-2020 Chronic Biliary tract disease (12 sources) Biliary dyskinesia; Translations: [Other specified diseases of gallbladder] 01-19-2021 Episodic Cancer of breast (20 sources) Malignant neoplasm of upper-outer quadrant of female breast; Translations: [Malignant neoplasm of upper-outer quadrant of right female breast] Onset: 05-04-2020 Chronic Cancer of breast (2 sources) History of malignant neoplasm of breast; Translations: [Personal history of malignant neoplasm of breast] 12-16-2023 Episodic Complications of surgical procedures or medical care (12 sources) Postoperative hemorrhage; Translations: [Postoperative hemorrhage from incision] 03-29-2020 Episodic Essential hypertension (12 sources) Hypertensive disorder; Translations: [Essential (primary) hypertension] 01-04-2021 Chronic Comment on above: CONTROLLED ON MED Nonmalignant breast conditions (12 sources) Breast lump; Translations: [Unspecified lump in the right breast, unspecified quadrant] 03-10-2020 Episodic Other connective tissue disease (12 sources) History of cervical spine fusion; Translations: [Arthrodesis status] 03-10-2020 Episodic Other endocrine disorders (1 source) Other specified disorders of adrenal gland; Translations: [Other specified disorders of adrenal gland] Onset: 06-26-2024 Chronic Other gastrointestinal disorders (12 sources) Irritable bowel syndrome; Translations: [Irritable bowel syndrome without diarrhea] 03-24-2020 Chronic Other gastrointestinal disorders (12 sources) Diarrhea; Translations: [Diarrhea, unspecified] 03-10-2020 Episodic Other screening for suspected conditions (not mental disorders or infectious disease) (20 sources) Ultrasonography of breast abnormal; Translations: [Other abnormal and inconclusive findings on diagnostic imaging of breast] Onset: 02-20-2024 03-10-2020 Episodic Other upper respiratory infections (5 sources) Maxillary sinusitis; Translations: [Chronic maxillary sinusitis] 03-03-2023 Chronic Residual codes; unclassified (12 sources) Family history of breast cancer; Translations: [Family history of malignant neoplasm of breast] 03-10-2020 Episodic Residual codes; unclassified (12 sources) History of colonoscopy; Translations: [Other specified postprocedural states] 03-10-2020 Episodic Comment on above: 04/2019 Residual codes; unclassified (4 sources) Other specified postprocedural states; Translations: [History of lumpectomy of right breast] 03-24-2020 Episodic Comment on above: 03/10/20 Residual codes; unclassified (1 source) History of repair of retina for retinal detachment; Translations: [Other specified postprocedural states] 03-02-2020 Episodic Comment on above: X4- Left eye Spondylosis; intervertebral disc disorders; other back problems (1 source) Degeneration of lumbar intervertebral disc; Translations: [Other intervertebral disc degeneration, lumbar region] Onset: 12-29-2018 12-29-2018 Chronic Thyroid disorders (1 source) Hypothyroidism, unspecified; Translations: [Hypothyroidism, unspecified] Onset: 09-17-2024 Chronic Thyroid disorders (12 sources) Disorder of thyroid gland; Translations: [Disorder of thyroid, unspecified] 03-24-2020 Episodic Past or Other Problems Problem Classification Problem Date Documented Date Episodic/Chronic Other connective tissue disease (6 sources) Swelling of upper limb; Translations: [Other specified soft tissue disorders] Onset: 06-26-2021 Episodic Residual codes; unclassified (12 sources) Past history of procedure; Translations: [Other specified postprocedural states] Onset: 03-01-2020 03-22-2020 Episodic Spondylosis; intervertebral disc disorders; other back problems (1 source) Disorder of sacrum; Translations: [Sacrococcygeal disorders, not elsewhere classified] Onset: 12-29-2018 12-29-2018 Episodic Unclassified (1 source) Problem Results Test Name Value Interpretation Reference Range Facility PROGESTERONE 4317on 09-17-19 25 PROGESTERONE 0.3 ng/mL Normal . [facility] Comment on above: Order Comment: N Result Comment: Foll icular phase 0.1 - 0.9 Luteal phase 1.8 - 23.9 Ovulation phase 0.1 - 12.0 First trimester 11.0 - 44.3 Second trimester 25.4 - 83.3 Third trimester 58.7 - 214.0 Postmenopausal 0.0 - 0.1 Performed at: [address] [id number] Food Concession Manager: Mukul Wilkes PhD, Phone: [phone] Performed By: #### L 3100.5310, L501.75018, L3300.1750, L801.2600, L501.9520, [id number] #### [facility] [address] [place], [place], [id number] Estradiolon 09-14-2024 ESTRADIOL 33.9 pg/mL Normal [facility] Comment on above: Result Comment: FEMA LES ADULT FEMALE: Premenopausal: 15-350 pg/mL(E2 levels vary widely through the menstrual cycle) Postmenopausal: <10 pg/mL YOGESH STAGES MEAN AGE REFERENCE RANGES Stage I(>14 days and prepubertal) 7.1 years Undetectable-20 pg/mLL Stage II 10.5 years Undetectable-24 pg/mL Stage III 11.6 years Undetectable-60 pg/mL Stage IV 12.3 years 15-85 pg/mL Stage V 14.5 years 15-350 pg/mL Puberty onset (transition from Yogesh stage I to Yogesh stage II) occurs for girls at a median age of 10.5 (/- 2) years. There is evidence that it may occur up to 1 year earlier in obese girls and in girls. Progression through Yogesh stages is variable. Yogesh stage V (adult) should be reached by age 18. Performed By: #### L 509.3001, L501.9520, L801.2600, L501.66270, [id number] #### [facility] [address] [place], [place], [id number] Free T3on 09-14-2024 Free T3 [Mass/Vol] 5.5 pg/mL High 2.18-3.98 [facility] Comment on above: Order Comment: N Performed By: #### L 509.3001, L501.9520, L801.2600, L501.91380, L3300.1750 #### [facility] [address] [place], [address] Free [id number] By: Jesica thurston on 09-14-2024 Free T3 [Mass/Vol] 5.5 pg/mL High 2.18-3.98 [facility] L509.3001on 09-14-2024 Testosterone [Mass/Vol] 362.00 ng/dL High [facility] Comment on above: Performed By: #### L 509.3001, L501.9520, L801.2600, L501.43993, L3300.1750 #### [facility] [address] [place], [place], [id number] Laboratory - Chemistry and C hemistry - challengeOrdered By: Jesica Maza on 09-14-2024 Testosterone [Mass/Vol] 362.00 ng/dL High [facility] Serum or plasma estradiol me asurement after follitropin dose (mass/volume)Ordered By: Jesica Maza on 09-14-2024 E2 post dose follitropin [Mass/Vol] 33.9 pg/mL [facility] Comment on above: FEMALES ADULT FEMALE : Premenopausal: 15-350 pg/mL(E2 levels vary widely through the menstrual cycle) Postmenopausal: <10 pg/mL YOGESH STAGES MEAN AGE REFERENCE RANGES Stage I(>14 days and prepubertal) 7.1 years Undetectable-20 pg/mLL Stage II 10.5 years Undetectable-24 pg/mL Stage III 11.6 years Undetectable-60 pg/mL Stage IV 12.3 years 15-85 pg/mL Stage V 14.5 years 15-350 pg/mL Puberty onset (transition from Yogesh stage I to Yogesh stage II) occurs for girls at a median age of 10.5 (/- 2) years. There is evidence that it may occur up to 1 year earlier in obese girls and in girls.Progression through Yogesh stages is variable. Yogesh stage V (adult) should be reached by age 18. TSH DL <= 0.005 mIU/L QnOrde red By: Jesica Maza on 09-14-2024 TSH Qn 0.610 uIU/mL 0.300-4.200 [facility] Thyroid Stim Hormone (TSH)on 09-14-2024 TSH 0.610 uIU/mL Normal 0.300-4.200 [facility] Comment on above: Performed By: #### L 509.3001, L501.9520, L801.2600, L501.34648, L3300.1750 #### [facility] [address] [place], [address] DHEA Sulfateon 06-30-2024 DHEA SULFATE 73.0 ug/dL Normal 20.4-186.6 [facility] Comment on above: Order Comment: N Result Comment: Perf ormed at: [facility] [address] [id number] Food Concession Manager: Mukul Wilkes PhD, Phone: [phone] Performed at: [facility] [id number] Food Concession Manager: Nanetet Sood MD, Phone: [phone] Performed By: #### L 3100.5310, L501.29270, L3300.1750, L801.2600, L501.9520, [id number] #### [facility] [address] [place], [place], [id number] Testosterone, Total / Freeon 06-30-2024 TESTOSTER,FREE 11.66 ng/dL Abnormal 0.10-0.85 [facility] Comment on above: Order Comment: N Performed By: #### L 3100.5310, L501.43246, L3300.1750, L801.2600, L501.9520, L3300.1500 #### [facility] [address] [place], [address] TESTOSTER,TOTAL 361 ng/dL High 3-67 [facility] Comment on above: Order Comment: N Performed By: #### L 3100.5310, L501.74025, L3300.1750, L801.2600, L501.9520, [id number] #### [facility] [address] [place], [address] TESTOSTERONE,%F 3.23 High 0.50-2.80 [facility] Comment on above: Order Comment: N Performed By: #### L 3100.5310, L501.73690, L3300.1750, L801.2600, L501.9520, [id number] #### [facility] [address] [place], [address] PROGESTERONE 4317on 06-21-19 PROGESTERONE 0.1 ng/mL Normal . [facility] Comment on above: Order Comment: N Result Comment: Foll icular phase 0.1 - 0.9 Luteal phase 1.8 - 23.9 Ovulation phase 0.1 - 12.0 First trimester 11.0 - 44.3 Second trimester 25.4 - 83.3 Third trimester 58.7 - 214.0 Postmenopausal 0.0 - 0.1 Performed at: [address] [id number] Food Concession Manager: Mukul Wilkes PhD, Phone: [phone] Performed By: #### L 3100.5310, L501.36082, L3300.1750, L801.2600, L501.9520, L3300.1500 #### [facility] [address] [place], [place], [id number] E2 post dose follitropin [Ma ss/Vol]Ordered By: Jesica Maza on 06-18-2024 Estradiol (E2) Level 34.5 pg/mL [facility] Comment on above: FEMALES ADULT FEMALE : Premenopausal: 15-350 pg/mL(E2 levels vary widely through the menstrual cycle) Postmenopausal: <10 pg/mL YOGESH STAGES MEAN AGE REFERENCE RANGES Stage I(>14 days and prepubertal) 7.1 years Undetectable-20 pg/mLL Stage II 10.5 years Undetectable-24 pg/mL Stage III 11.6 years Undetectable-60 pg/mL Stage IV 12.3 years 15-85 pg/mL Stage V 14.5 years 15-350 pg/mL Puberty onset (transition from Yogesh stage I to Yogesh stage II) occurs for girls at a median age of 10.5 (/- 2) years. There is evidence that it may occur up to 1 year earlier in obese girls and in girls.Progression through Yogesh stages is variable. Yogesh stage V (adult) should be reached by age 18. Estradiolon 06-18-2024 ESTRADIOL 34.5 pg/mL Normal [facility] Comment on above: Result Comment: FEMA LES ADULT FEMALE: Premenopausal: 15-350 pg/mL(E2 levels vary widely through the menstrual cycle) Postmenopausal: <10 pg/mL YOGESH STAGES MEAN AGE REFERENCE RANGES Stage I(>14 days and prepubertal) 7.1 years Undetectable-20 pg/mLL Stage II 10.5 years Undetectable-24 pg/mL Stage III 11.6 years Undetectable-60 pg/mL Stage IV 12.3 years 15-85 pg/mL Stage V 14.5 years 15-350 pg/mL Puberty onset (transition from Yogesh stage I to Yogesh stage II) occurs for girls at a median age of 10.5 (/- 2) years. There is evidence that it may occur up to 1 year earlier in obese girls and in girls. Progression through Yogesh stages is variable. Yogesh stage V (adult) should be reached by age 18. Performed By: #### L 3100.5310, L501.86720, L3300.1750, L801.2600, L501.9520, L3300.1500 #### [facility] [address] [place], [place], [address] Free T3on 06-18-2024 Free T3 [Mass/Vol] 3.9 pg/mL Normal 2.18-3.98 [facility] Comment on above: Order Comment: N Performed By: #### L 3100.5310, L501.03721, L3300.1750, L801.2600, L501.9520, L3300.1500 #### [facility] [address] [place], [address] Free [id number] By: Jesica thurston on 06-18-2024 Free T3 [Mass/Vol] 3.9 pg/mL 2.18-3.98 [facility] Free Triiodothyronine (T3) pg/dL 3.9 pg/mL 2.18-3.98 [facility] Free testosterone percentage Ordered By: Jesica Maza on 06-18-2024 Testosterone Free/Testosterone.total [Mass fraction] 3.23 % High 0.50-2.80 [facility] Quantitative serum progester one measurement by electrochemiluminescence immunoassay (Ordered By: Jesica Maza on 06-18-2024 Progesterone Level 0.1 ng/mL . [facility] Comment on above: Follicular phase 0.1 - 0.9 Luteal phase 1.8 - 23.9 Ovulation phase 0.1 - 12.0 First trimester 11.0 - 44.3 Second trimester 25.4 - 83.3 Third trimester 58.7 - 214.0 Postmenopausal 0.0 - 0.1Performed at: [facility] [id number] Director: Mukul Wilkes PhD, Phone: [phone] Serum or plasma estradiol me asurement after follitropin dose (mass/volume)Ordered By: Jesica Maza on 06-18-2024 E2 post dose follitropin [Mass/Vol] 34.5 pg/mL [facility] Comment on above: FEMALES ADULT FEMALE : Premenopausal: 15-350 pg/mL(E2 levels vary widely through the menstrual cycle) Postmenopausal: <10 pg/mL YOGESH STAGES MEAN AGE REFERENCE RANGES Stage I(>14 days and prepubertal) 7.1 years Undetectable-20 pg/mLL Stage II 10.5 years Undetectable-24 pg/mL Stage III 11.6 years Undetectable-60 pg/mL Stage IV 12.3 years 15-85 pg/mL Stage V 14.5 years 15-350 pg/mL Puberty onset (transition from Yogesh stage I to Yogesh stage II) occurs for girls at a median age of 10.5 (/- 2) years. There is evidence that it may occur up to 1 year earlier in obese girls and in girls.Progression through Yogesh stages is variable. Yogesh stage V (adult) should be reached by age 18. Serum or plasma free testost erone measurement (mass/volume)Ordered By: Jesica Maza on 06-18-2024 Testosterone Free [Mass/Vol] 11.66 ng/dL High 0.10-0.85 [facility] TSH DL <= 0.005 mIU/L QnOrde red By: Jesica Maza on 06-18-2024 Thyroid Stimulating Hormone (TSH) 2.430 uIU/mL 0.300-4.200 [facility] TSH Qn 2.430 uIU/mL 0.300-4.200 [facility] Testosterone, totalOrdered B y: Jesica Maza on 06-18-2024 Testosterone [Mass/Vol] 361 ng/dL High 3-67 [facility] Thyroid Stim Hormone (TSH)on 06-18-2024 TSH 2.430 uIU/mL Normal 0.300-4.200 [facility] Comment on above: Performed By: #### L 3100.5310, L501.93275, L3300.1750, L801.2600, L501.9520, L3300.1500 #### [facility] [address] [place], [address] DHEA Sulfateon 04-11-2024 DHEA SULFATE 44.9 ug/dL Normal 20.4-186.6 [facility] Comment on above: Order Comment: N Result Comment: Perf ormed at: - [facility] [address] [id number] Food Concession Manager: Mukul Wilkes PhD, Phone: [phone] Performed By: #### L 3100.5310, L501.25078, L3300.1750, L801.2600, L501.9520, L3300.1500 #### [facility] [address] [place], [place], [id number] PROGESTERONE 4317on 04-11-19 25 PROGESTERONE 0.1 ng/mL Normal . [facility] Comment on above: Order Comment: N Result Comment: Foll icular phase 0.1 - 0.9 Luteal phase 1.8 - 23.9 Ovulation phase 0.1 - 12.0 First trimester 11.0 - 44.3 Second trimester 25.4 - 83.3 Third trimester 58.7 - 214.0 Postmenopausal 0.0 - 0.1 Performed at: [facility] - [facility] [address] [id number] Food Concession Manager: Mukul Wilkes PhD, Phone: [phone] Performed By: #### L 3100.5310, L501.13499, L3300.1750, L801.2600, L501.4220, L3300.1500 #### [facility] [address] [place], [address] Dehydroepiandrosterone sulfa te (DHEA-S) measurementOrdered By: Jesica Maza on 04-10-2024 Dehydroepiandrosterone Sulfate 44.9 ug/dL 20.4-186.6 [facility] Comment on above: Performed at: Cardiovascular Simulation - [facility] [address] [id number] Director: Mukul Wilkes PhD, Phone: [phone] Estradiolon 04-10-2024 ESTRADIOL 21.9 pg/mL Normal [facility] Comment on above: Order Comment: N Result Comment: NORM AL REFERENCE RANGES FEMALE FOLLICULAR 21.4 - 164.8 pg/mL MID-CYCLE PEAK 49.9 - 367.2 pg/mL LUTEAL 40.2 - 259.0 pg/mL POST-MENOPAUSAL ON MHT <11.0 - 462.1 pg/mL NOT ON MHT <11.0 - 58.3 pg/mL MALE <11.0 - 52.5 pg/mL NOTE: [employer] HAS CONFIRMED THE DRUG FULVETRANT (FASLODEX) MAY CAUSE FALSELY ELEVATED ESTRADIOL RESULTS WHEN USING THIS TEST METHOD. IF PATIENT IS TAKING FULVESTRANT AN ALTERNATIVE METHOD SHOULD BE USED TO DETERMINE ESTRADIOL CONCENTRATION. Performed By: #### L 3100.5310, L501.24146, L3300.1750, L801.2600, L501.9520, L3300.1500 #### [facility] [address] [place], [place], [id number] Estradiol measurementOrdered By: Jesica Maza on 04-10-2024 Estradiol (E2) Level 21.9 pg/mL [facility] Comment on above: NORMAL REFERENCE RAN GES FEMALE FOLLICULAR 21.4 - 164.8 pg/mL MID-CYCLE PEAK 49.9 - 367.2 pg/mL LUTEAL 40.2 - 259.0 pg/mL POST-MENOPAUSAL ON MHT <11.0 - 462.1 pg/mL NOT ON MHT <11.0 - 58.3 pg/mL MALE <11.0 - 52.5 pg/mL NOTE:[employer] HAS CONFIRMED THE DRUG FULVETRANT (FASLODEX) MAY CAUSE FALSELY ELEVATED ESTRADIOL RESULTS WHEN USING THIS TEST METHOD. IF PATIENT IS TAKING FULVESTRANT AN ALTERNATIVE METHOD SHOULD BE USED TO DETERMINE ESTRADIOL CONCENTRATION. Free T3on 04-10-2024 Free T3 [Mass/Vol] 3.2 pg/mL Normal 2.18-3.98 [facility] Comment on above: Order Comment: N Performed By: #### L 3100.5310, L501.70533, L3300.1750, L801.2600, L501.9520, L3300.1500 #### [facility] [address] [place], [place], [id number] Free [id number] By: Jesica thurston on 04-10-2024 Free Triiodothyronine (T3) pg/dL 3.2 pg/mL 2.18-3.98 [facility] Quantitative serum progester one measurement by electrochemiluminescence immunoassay (Ordered By: Jesica Maza on 04-10-2024 Progesterone Level 0.1 ng/mL . [facility] Comment on above: Follicular phase 0.1 - 0.9 Luteal phase 1.8 - 23.9 Ovulation phase 0.1 - 12.0 First trimester 11.0 - 44.3 Second trimester 25.4 - 83.3 Third trimester 58.7 - 214.0 Postmenopausal 0.0 - 0.1Performed at: CB - [facility] [id number] [place], [place] [id number] Director: Mukul Wilkes PhD, Phone: [phone] TSH QnOrdered By: Jesica You sumit on 04-10-2024 Thyroid Stimulating Hormone (TSH) 2.950 uIU/mL 0.358-3.740 [facility] Testosterone, Serum Totalon 04-10-2024 Testosterone [Mass/Vol] 401.69 ng/dL Normal [facility] Comment on above: Result Comment: CENT RAL 90% REFERENCE RANGES MALE AGE <50 197.44 - 669.58 ng/dL MALE AGE > or = 50 187.72 - 684.19 ng/dL FEMALE AGE <50 8.38 - 35.01 ng/dL FEMALE AGE > or = 50 <7.00 - 35.92 ng/dL Effective as of 10/25/20 Performed By: #### L 3100.5310, L501.76339, L3300.1750, L801.2600, L501.9520, L3300.1500 #### [facility] [address] [place], [place], [address] Testosterone, totalOrdered B y: Jesica Maza on 04-10-2024 Testosterone [Mass/Vol] 401.69 ng/dL [facility] Comment on above: CENTRAL 90% REFERENC E RANGES MALE AGE <50 197.44 - 669.58 ng/dL MALE AGE > or = 50 187.72 - 684.19 ng/dL FEMALE AGE <50 8.38 - 35.01 ng/dL FEMALE AGE > or = 50 <7.00 - 35.92 ng/dL Effective as of 10/25/20 Thyroid Stim Hormone (TSH)on 04-10-2024 TSH 2.950 uIU/mL Normal 0.358-3.740 [facility] Comment on above: Order Comment: N Performed By: #### L 3100.5310, L501.05319, L3300.1750, L801.2600, L501.9520, L3300.1500 #### [facility] [address] [place], [place], [address] Dexa Bone Density Studyon Dexa Bone Density Study [facility] Imaging Services [address] [address] Dexa Bone Density Study MR#: [id number] Acct: [id number] Name: LAI GOMEZ Rep #: [id number] : 1955 F 68 From: Rico mcknight MD PCP: Dr. Madeline Mccarthy MD Status: [facility] Study: Dexa Bone Density Study Date of Exam: 01/30/24 Exam# [id number] Ordering Dr: Mario Thomas DO [id number] STUDY: DUAL ENERGY X-RAY ABSORPTIOMETRY / DXA REASON FOR EXAM: Female, 68 years old. 733.00Osteoporosis BONE DENSITY REASON FOR EXAM TECHNIQUE: Bone Mineral Density (BMD) measurements of lumbar spine and bilateral hips were obtained. COMPARISON: Comparison is made with prior study dated October 18, 2020. FINDINGS: Lumbar Spine (L1-L4): g/cm2 (0.917) / T-score (-0.6) / Z-score (1.2) Findings are suggestive of normal bone density with a low fracture risk. Left Femur Total: g/cm2 (0.906) / T-score (-0.3) / Z-score (1.0) Left Femoral Neck: g/cm2 (0.699) / T-score (-1.3) / Z-score (0.2) Right Femur Total: g/cm2 (0.881) / T-score (-0.5) / Z-score (0.8) Right Femoral Neck: g/cm2 (0.669) / T-score (-1.6) / Z-score (0.0) The T-Scores on the most recent prior examination were: Lumbar Spine (L1-L4): There has been worsening of bone density since the previous examination. Left Femur Total: which represents an improvement of 2%. Right Femur Total: which represents a worsening of 3.5%. BD/Dexa Bone Density Study IMPRESSION: The patient is considered osteopenic as outlined below according to World Anibal Organization (WHO) criteria with a moderate fracture risk. There has been worsening of bone density since the previous examination. Reference Information: The T-score is the number of standard deviations above or below the standard which is normal for young adults at their peak bone mineral density. The World Health Organization (WHO) interprets the T-scores as follows: Above -1 Normal bone density Between -1 and -2.5 Osteopenia Equal to / or below -2.5 Osteoporosis As a practical clinical guideline, osteopenia may be graded as follows: Mild -1 through -1.5 Moderate -1.6 through -2.0 Severe -2.1 through -2.4 The Z-score is the number of standard deviations above or below age-matched controls. A Z-score of less than -1.5 would be considered abnormal. References: 1. NIH Osteoporosis and Related Bone Diseases www osteo.org 2. International Society for Clinical Densitometry www iscd.org 3. National Osteoporosis Foundation www nof.org Electronically Signed: Rico Finley MD at 13:07 EST Reading Location ID and State: [facility] / [place] , Service support , CC: Dr. Madeline Mccarthy MD; Dr. Mario Thomas DO Healthcare Science Specialist: Signed Normal [facility] SCRN MAMM (CAD)W/VIDA BILATo n 01-30-2024 SCRN MAMM (CAD)W/VIDA BILAT [facility] Imaging Services [address] [place] [address] SCRN MAMM (CAD)W/VIDA BILAT MR#: [id number] Acct: [id number] Name: LAI GOMEZ Rep #: [id number] : 1955 F 68 From: Rico mcknight MD PCP: Dr. Madeline Mccarthy MD Status: [facility] Study: SCRN MAMM (CAD)W/VIDA BILAT Date of Exam: 01/01 04/24 Exam# [id number] Ordering Dr: Mario Thomas DO [id number] MAMMOGRAPHY - BILATERAL SCREENING REASON FOR EXAM: Female, 68 years old. Routine annual screening examination. PERTINENT HISTORY: Personal history of breast cancer. History of prior lumpectomy with radiation treatment. Mother with breast cancer. TECHNIQUE: Digital bilateral breast vida (3D mammographic acquisition) in the CC and MLO projections. 2-D mediolateral oblique (MLO) and craniocaudad (CC) views of both breasts were obtained. CAD: Full Field Digital Mammography with Computer Added Detection was performed. COMPARISON: Comparison is made with prior study dated January 28, 2023 and January 25, 2022. FINDINGS: Breast Composition: There are scattered areas of fibroglandular density. There are no dominant masses or suspicious calcifications. Which again, the patient is status post lumpectomy in the upper lateral aspect of the right breast with resultant postoperative scarring and breast deformity. Overlying skin thickening. Surgical clips are seen in the right axilla. No other significant abnormalities are identified. There has been no significant change since the prior study. BI/SCRN MAMM (CAD)W/VIDA BILAT IMPRESSION: Stable bilateral screening mammogram. Yearly follow-up mammogram recommended. (A) ASSESSMENT CATEGORY: BIRADS Category 2: Benign. A letter regarding these results will be sent to the patient by the facility within 30 days. Approximately 10% of breast cancers are not detected by mammography. A normal mammogram should not delay biopsy of a clinically suspicious abnormality. [id number] Electronically Signed: Rico Finley MD at 11:13 EDT , CC: Dr. Madeline Mccarthy MD; Dr. Mario Thomas DO Healthcare Science Specialist: Signed Normal [facility] CNOVSPon 12-16-2023 CNOVSP Visit (SP) Office ([place]) -------- LAI GOMEZ ([id number]) 1955 F Date Time Provider Department 12/16/23 9:30 AM MARY RIVERA During your visit today, we recorded the following information about you: Temperature Pulse Blood pressure Weight 97.5 degrees 77/minute 161/86 96.3 kg Mary Rivera APRN.LOG STACKER OPERATOR 12/17/2023 9:46 AM Signed Chief Complaint Patient presents with: Established Patient HPI: Lai Gomez is a 68 year old female who presents here today for follow up breast cancer. Per Dr. Stuart's previous note: H/o hypertension and hypothyroidism. Patient had a bilateral screening mammogram on 02/03/2020. That study demonstrated a proximal focal area of architectural distortion in the upper outer aspect of the right breast. Additional views were obtained. Compression magnification views of the right breast were obtained on 02/10/2020. There was persistent architectural distortion noted in the upper lateral aspect of the right breast. Ultrasound demonstrated a 1 x 1.1 x 1 cm spiculated nodule at the 10 o'clock position of the breast 3 cm from the nipple. There was an incidental note of a 4 x 4 x 4 mm cyst adjacent to the spiculated nodule. Biopsy was recommended. Underwent ultrasound-guided right breast biopsy and biopsy of right axillary lymph node on 03/02/2020. Pathology: MICROSCOPIC DIAGNOSIS A. Right breast, core biopsy: Invasive ductal carcinoma with the following characteristics: Maximal length - 5 millimeters Nuclear grade - 1/3 Other finding- ductal carcinoma insitu, nuclear grade 1/3, focal. See comment. B. Right axillary tissue, core biopsy: Benign fibrofatty tissue and lymphoid tissue. See comment. MORPHOMETRIC ANALYSIS ER (clone [id number]) >95%, strong intensity RI (clone 16/1E2) >95%, strong intensity Her-2Neu (clone [id number]) 1+ Underwent right partial mastectomy with right sentinel lymph node biopsy under stereotactic guided wire localization on 03/10/2020. Pathology: FROZEN SECTION DIAGNOSIS A. Right breast sentinel lymph node, biopsy: One lymph node, negative for metastatic carcinoma. B. Right breast sentinel lymph node, biopsy: One lymph node, negative for metastatic carcinoma. MICROSCOPIC DIAGNOSIS A. Right breast sentinel lymph node, biopsy: One lymph node, negative for metastatic carcinoma. Changes consistent with previous biopsy site. See comment. B. Right breast sentinel lymph node, biopsy: One lymph node, negative for metastatic carcinoma. See comment. C. Right breast mass, lumpectomy with needle localization: Invasive ductal carcinoma. Ductal carcinoma in situ. Fibrocystic changes, adenosis and intraductal hyperplasia with focal atypia. Changes consistent with previous biopsy site. D. New medial margin: Fibrocystic changes, adenosis and intraductal hyperplasia without atypia. Focal microcalcification s. Negative for carcinoma. SJ:william 03/15/20 COMMENT A AND B. The lymph nodes is negative for metastatic carcinoma on multiple H AND E levels and immunohisto-chemic al stains for cytokeratins ([id number]). BREAST CANCER SUMMARY Procedure - excision (lumpectomy with needle localization) Specimen laterality - right Invasive tumor: Tumor site - central portion of right breast, as per clinical information. Tumor size - greatest dimension 1.2 cm Additional dimension - 0.8 x 0.8 cm. See comment below. Histologic type - invasive ductal carcinoma, not otherwise specified. Histologic grade (Mony grade): Glandular/tubular differentiation score - 1 Nuclear pleomorphism score - 2 Mitotic count score - 1 Overall grade - grade 1 (score of 4) Tumor focality - single focus of invasive carcinoma. Ductal Carcinoma In Situ - present Extent of intraductal component (EIC). Site (extent) of DCIS - DCIS comprise about 40% of the total tumor volume. Number of blocks with DCIS - 3 Number of blocks examined - 16 (specimen A AND B) Architectural pattern - cribriform Nuclear grade - 1-2 Necrosis - not identified Lobular carcinoma in situ - no lobular carcinoma in situ in the specimen. Tumor extension: Skin - not present Nipple - not applicable Skeletal muscle - no skeletal muscle is present. Margins - invasive carcinoma and ductal carcinoma in situ are 0.5 cm away from the closest lateral margin. Regional Lymph Nodes: Total number of lymph nodes examined - 2 Number of sentinel lymph nodes examined - 2 Number of lymph nodes with macrometastases, micrometastases and isolated tumor cells - 0 Treatment effect - no known presurgical therapy. Lymphvascular invasion - not identified Dermal lymphvascular invasion - not applicable Additional Pathologic Findings - fibrocystic changes, adenosis and intraductal hyperplasia with atypia. Changes consistent with previous biopsy site. Ancillary Studies: Previously performed (more content not included)... Normal [facility] Basophil percentageon 2023 Testosterone [Mass/Vol] 444.06 ng/dL [facility] Comment on above: CENTRAL 90% REFERENC E RANGES MALE AGE <50 197.44 - 669.58 ng/dL MALE AGE > or = 50 187.72 - 684.19 ng/dL FEMALE AGE <50 8.38 - 35.01 ng/dL FEMALE AGE > or = 50 <7.00 - 35.92 ng/dL Effective as of 10/25/20 No Panel Informationon 07-30 Dehydroepiandrosterone Sulfate 46.9 ug/dL 20.4-186.6 [facility] Comment on above: Performed at: - [facility] [id number] Director: Mukul Wilkes PhD, Phone: [phone] Estradiol (E2) Level 35.8 pg/mL [facility] Comment on above: NORMAL REFERENCE RAN GES FEMALE FOLLICULAR 21.4 - 164.8 pg/mL MID-CYCLE PEAK 49.9 - 367.2 pg/mL LUTEAL 40.2 - 259.0 pg/mL POST-MENOPAUSAL ON MHT <11.0 - 462.1 pg/mL NOT ON MHT <11.0 - 58.3 pg/mL MALE <11.0 - 52.5 pg/mL NOTE:[employer] HAS CONFIRMED THE DRUG FULVETRANT (FASLODEX) MAY CAUSE FALSELY ELEVATED ESTRADIOL RESULTS WHEN USING THIS TEST METHOD. IF PATIENT IS TAKING FULVESTRANT AN ALTERNATIVE METHOD SHOULD BE USED TO DETERMINE ESTRADIOL CONCENTRATION. Free Triiodothyronine (T3) pg/dL 4.2 pg/mL 2.18-3.98 [facility] Serum or plasma progesterone measurement (mass/volume)on 07-31-2023 Progesterone [Mass/Vol] ng/mL See Comment [facility] Comment on above: Progesterone Referen ce Table: UNITS Female: Follicular 0.15 - 1.40 ng/mL Luteal 3.34 - 25.56 ng/mL Mid-luteal 4.44 - 28.03 ng/mL Postmenopausal 0.0 - 0.73 ng/mL : 1st Trimester 11.22 - 90.00 ng/mL 2nd Trimester 25.55 - 89.40 ng/mL 3rd Trimester 48.40 -422.50 ng/mL Serum or plasma thyroid stim ulating hormone (TSH) measurement (units/volume)on 07-31-2023 TSH Qn 2.43 uIU/mL 0.358-3.74 [facility] Basophil percentageon 2023 Testosterone [Mass/Vol] 230.95 ng/dL [facility] Comment on above: CENTRAL 90% REFERENC E RANGES MALE AGE <50 197.44 - 669.58 ng/dL MALE AGE > or = 50 187.72 - 684.19 ng/dL FEMALE AGE <50 8.38 - 35.01 ng/dL FEMALE AGE > or = 50 <7.00 - 35.92 ng/dL Effective as of 10/25/20 No Panel Informationon 06-21 Estradiol (E2) Level < 11.0 pg/mL [facility] Comment on above: NORMAL REFERENCE RAN GES FEMALE FOLLICULAR 21.4 - 164.8 pg/mL MID-CYCLE PEAK 49.9 - 367.2 pg/mL LUTEAL 40.2 - 259.0 pg/mL POST-MENOPAUSAL ON MHT <11.0 - 462.1 pg/mL NOT ON MHT <11.0 - 58.3 pg/mL MALE <11.0 - 52.5 pg/mL NOTE:[employer] HAS CONFIRMED THE DRUG FULVETRANT (FASLODEX) MAY CAUSE FALSELY ELEVATED ESTRADIOL RESULTS WHEN USING THIS TEST METHOD. IF PATIENT IS TAKING FULVESTRANT AN ALTERNATIVE METHOD SHOULD BE USED TO DETERMINE ESTRADIOL CONCENTRATION. Free Triiodothyronine (T3) pg/dL 3.5 pg/mL 2.18-3.98 [facility] Serum or plasma thyroid stim ulating hormone (TSH) measurement (units/volume)on 06-22-2023 TSH Qn 2.60 uIU/mL 0.358-3.74 [facility] CNOVSPon 05-28-2023 CNOVSP Visit (SP) Office ([place]) -------- LAI GOMEZ ([id number]) 1955 F Date Time Provider Department 05/28/23 11:00 AM MARY RIVERA During your visit today, we recorded the following information about you: Temperature Pulse Blood pressure Weight 99.2 degrees 91/minute 142/89 95.8 kg Mary Rivera APRN.LOG STACKER OPERATOR 05/28/2023 11:37 AM Signed Chief Complaint Patient presents with: Established Patient HPI: Laiadrienne Gomez is a 67 year old female who presents here today for follow up breast cancer. Per Dr. Stuart's previous note: H/o hypertension and hypothyroidism. Patient had a bilateral screening mammogram on 02/03/2020. That study demonstrated a proximal focal area of architectural distortion in the upper outer aspect of the right breast. Additional views were obtained. Compression magnification views of the right breast were obtained on 02/10/2020. There was persistent architectural distortion noted in the upper lateral aspect of the right breast. Ultrasound demonstrated a 1 x 1.1 x 1 cm spiculated nodule at the 10 o'clock position of the breast 3 cm from the nipple. There was an incidental note of a 4 x 4 x 4 mm cyst adjacent to the spiculated nodule. Biopsy was recommended. Underwent ultrasound-guided right breast biopsy and biopsy of right axillary lymph node on 03/02/2020. Pathology: MICROSCOPIC DIAGNOSIS A. Right breast, core biopsy: Invasive ductal carcinoma with the following characteristics: Maximal length - 5 millimeters Nuclear grade - 1/3 Other finding- ductal carcinoma insitu, nuclear grade 1/3, focal. See comment. B. Right axillary tissue, core biopsy: Benign fibrofatty tissue and lymphoid tissue. See comment. MORPHOMETRIC ANALYSIS ER (clone [id number]) >95%, strong intensity RI (clone [id number]) >95%, strong intensity [id number]-[id number] (clone [id number]) 1+ Underwent right partial mastectomy with right sentinel lymph node biopsy under stereotactic guided wire localization on 03/10/2020. Pathology: FROZEN SECTION DIAGNOSIS A. Right breast sentinel lymph node, biopsy: One lymph node, negative for metastatic carcinoma. B. Right breast sentinel lymph node, biopsy: One lymph node, negative for metastatic carcinoma. MICROSCOPIC DIAGNOSIS A. Right breast sentinel lymph node, biopsy: One lymph node, negative for metastatic carcinoma. Changes consistent with previous biopsy site. See comment. B. Right breast sentinel lymph node, biopsy: One lymph node, negative for metastatic carcinoma. See comment. C. Right breast mass, lumpectomy with needle localization: Invasive ductal carcinoma. Ductal carcinoma in situ. Fibrocystic changes, adenosis and intraductal hyperplasia with focal atypia. Changes consistent with previous biopsy site. D. New medial margin: Fibrocystic changes, adenosis and intraductal hyperplasia without atypia. Focal microcalcification s. Negative for carcinoma. SJ:william 03/15/20 COMMENT A AND B. The lymph nodes is negative for metastatic carcinoma on multiple H AND E levels and immunohisto-chemic al stains for cytokeratins ([id number]). BREAST CANCER SUMMARY Procedure - excision (lumpectomy with needle localization) Specimen laterality - right Invasive tumor: Tumor site - central portion of right breast, as per clinical information. Tumor size - greatest dimension 1.2 cm Additional dimension - 0.8 x 0.8 cm. See comment below. Histologic type - invasive ductal carcinoma, not otherwise specified. Histologic grade (Mony grade): Glandular/tubular differentiation score - 1 Nuclear pleomorphism score - 2 Mitotic count score - 1 Overall grade - grade 1 (score of 4) Tumor focality - single focus of invasive carcinoma. Ductal Carcinoma In Situ - present Extent of intraductal component (EIC). Site (extent) of DCIS - DCIS comprise about 40% of the total tumor volume. Number of blocks with DCIS - 3 Number of blocks examined - 16 (specimen A AND B) Architectural pattern - cribriform Nuclear grade - 1-2 Necrosis - not identified Lobular carcinoma in situ - no lobular carcinoma in situ in the specimen. Tumor extension: Skin - not present Nipple - not applicable Skeletal muscle - no skeletal muscle is present. Margins - invasive carcinoma and ductal carcinoma in situ are 0.5 cm away from the closest lateral margin. Regional Lymph Nodes: Total number of lymph nodes examined - 2 Number of sentinel lymph nodes examined - 2 Number of lymph nodes with macrometastases, micrometastases and isolated tumor cells - 0 Treatment effect - no known presurgical therapy. Lymphvascular invasion - not identified Dermal lymphvascular invasion - not applicable Additional Pathologic Findings - fibrocystic changes, adenosis and intraductal hyperplasia with atypia. Changes consistent with previous biopsy site. Ancillary Studies: Previously performe (more content not included)... Normal [facility] Basophil percentageon 2022 Chloride [Moles/Vol] 106 mmol/L 98-107 [facility] Glucose [Mass/Vol] 105 mg/dL 74-106 [facility] Comment on above: Fasting Glucose resu lt from 100 to 125 mg/dL suggests IMPAIRED HOMEOSTASIS per A.D.A. criteria. Potassium [Moles/Vol] 4.0 mmol/L 3.5-5.1 [facility] Sodium [Moles/Vol] 140 mmol/L 136-145 [facility] - Chemistry and C hemistry - challengeon 03-27-2023 CO2 [Moles/Vol] 28.0 mmol/L 21.0-32.0 [facility] Free T4 [Mass/Vol] 0.70 ng/dL 0.76-1.46 [facility] Urea nitrogen/Creatinine [Mass ratio] 15.5 mg/mg 10-20 [facility] No Panel Informationon 03-27 Estimated GFR (MDRD) Amer 80 mL/min >60 [facility] Comment on above: GFR Calc Estimated GFR (MDRD) Non-Af Amer 67 mL/min >60 [facility] Comment on above: Non- GFR Calc Free Triiodothyronine (T3) pg/dL 4.3 pg/mL 2.18-3.98 [facility] Thyroid Stimulating Hormone (TSH) 2.35 uIU/mL 0.358-3.74 [facility] Serum or plasma calcium vanesa urement (mass/volume)on 03-27-2023 Calcium [Mass/Vol] 8.8 mg/dL 8.5-10.1 [facility] Serum or plasma creatinine m easurement (mass/volume)on 03-27-2023 Creatinine [Mass/Vol] 0.90 mg/dL 0.55-1.02 [facility] Comment on above: The validity of the calculated GFR & GFRAA in patients over 70 years has not been determined. Clinical correlation is essential. Serum or plasma urea nitroge n measurement (mass/volume)on 03-27-2023 Urea nitrogen [Mass/Vol] 14 mg/dL 7-18 [facility] Thin prep Papanicolaou smear with manual screeningon 03-27-2023 Thin prep Papanicolaou smear with manual screening 6 5-15 [facility] Whole blood hemoglobin A1c/t otal hemoglobin ratio (mass fraction)on 03-27-2023 HbA1c (Bld) [Mass fraction] 5.0 % 3.8-5.6 [facility] Comment on above: Normal < 5.7 % Predi abetic 5.7 - 6.4 % Diabetic >or= 6.5 % Please note range changes. Absolute lymphocyte countOrd ered By: Quirino Savage on 01-04-2023 Lymphocytes Auto (Unsp spec) [#/Vol] 3.08 10*3/uL 0.83-4.51 [facility] Basophil percentageOrdered B y: Quirino Savage on 01-04-2023 Basophils/100 WBC (Bld) 0.4 % 0-1 [facility] Chloride [Moles/Vol] 107 mmol/L 98-107 [facility] Eosinophils/100 WBC (Bld) 1.7 % 0-5 [facility] Glucose [Mass/Vol] 108 mg/dL 74-106 [facility] Comment on above: Fasting Glucose resu lt from 100 to 125 mg/dL suggests IMPAIRED HOMEOSTASIS per A.D.A. criteria. Neutrophils (Bld) [#/Vol] 6.0 10*3/uL 2.0-7.7 [facility] Neutrophils/100 WBC (Bld) 59.9 % 47-70 [facility] Potassium [Moles/Vol] 4.0 mmol/L 3.5-5.1 [facility] Sodium [Moles/Vol] 142 mmol/L 136-145 [facility] WBC (Bld) [#/Vol] 10.0 10*3/uL 4.4-11.0 [facility] Blood erythrocytes count (nu mber/volume)Ordered By: Quirino Savage on 01-04-2023 RBC (Bld) [#/Vol] 5.16 10*6/uL 4.2-5.4 [facility] Blood hemoglobin measurement (mass/volume)Ordered By: Quirino Savage on 01-04-2023 Hemoglobin (Bld) [Mass/Vol] 15.5 g/dL 12.0-15. 0 [facility] Blood lymphocytes/100 leukoc ytesOrdered By: Quirino Savage on 01-04-2023 Lymphocytes/100 WBC (Bld) 30.8 % 19-41 [facility] Blood monocytes/100 leukocyt esOrdered By: Quirino Savage on 01-04-2023 Monocytes/100 WBC (Bld) 7.0 % 0-10 [facility] Blood platelet mean volumeOr dered By: Quirino Savage on 01-04-2023 Platelet mean volume (Bld) [Entitic vol] 9.9 fL 6.2-12.0 [facility] Determination of erythrocyte mean corpuscular volume (MCV)Ordered By: Quirino Savage on 01-04-2023 MCV (RBC) [Entitic vol] 90.9 fL 81-99 [facility] Hematocrit Auto (Bld) [Volum e fraction]Ordered By: Quirino Savage on 01-04-2023 Hematocrit (Bld) [Volume fraction] 46.9 % 37-47 [facility] Laboratory - Chemistry and C hemistry - challengeOrdered By: Quirino Savage on 01-04-2023 CO2 [Moles/Vol] 33.0 mmol/L 21.0-32.0 [facility] Urea nitrogen/Creatinine [Mass ratio] 14.5 mg/mg 10-20 [facility] Laboratory - Hematology and Cell countsOrdered By: Quirino Savage on 01-04-2023 Erythrocyte distribution width (RBC) [Entitic vol] 48.0 fL 35.1-43.9 [facility] Erythrocyte distribution width (RBC) [Ratio] 14.3 % 11.6-14.6 [facility] Immature granulocytes/100 WBC (Bld) 0.200 % 0.0-0.9 [facility] Comment on above: IG% - Immature Granu locytes (promyelocytes, myelocytes and metamyelocytes) > 1% indicates that a LEFT SHIFT is Present. MCH (RBC) [Entitic mass] 30.0 pg 27.0-32.0 [facility] Nucleated RBC/100 WBC (Bld) [Ratio] 0 % 0-5 [facility] MCHC Auto (RBC) [Mass/Vol]Or dered By: Quirino Savage on 01-04-2023 MCHC (RBC) [Mass/Vol] 33.0 g/dL 32-36 [facility] No Panel InformationOrdered By: Quirino Savage on 01-04-2023 Estimated GFR (MDRD) Amer 60 mL/min >60 [facility] Comment on above: GFR Calc Estimated GFR (MDRD) Non-Af Amer 49 mL/min >60 [facility] Comment on above: Non- GFR Calc Platelets bldOrdered By: Pascual Savage on 01-04-2023 Platelets (Bld) [#/Vol] 298 10*3/uL 150-450 [facility] Serum or plasma albumin vanesa urement (mass/volume)Ordered By: Quirino Savage on 01-04-2023 Albumin [Mass/Vol] 3.4 g/dL 3.2-5.0 [facility] Serum or plasma calcium vanesa urement (mass/volume)Ordered By: Quirino Savage on 01-04-2023 Calcium [Mass/Vol] 9.2 mg/dL 8.5-10.1 [facility] Serum or plasma creatinine m easurement (mass/volume)Ordered By: Quirino Savage on 01-04-2023 Creatinine [Mass/Vol] 1.17 mg/dL 0.55-1.02 [facility] Comment on above: The validity of the calculated GFR & GFRAA in patients over 70 years has not been determined. Clinical correlation is essential. Serum or plasma urea nitroge n measurement (mass/volume)Ordered By: Quirino Savage on 01-04-2023 Urea nitrogen [Mass/Vol] 17 mg/dL 7-18 [facility] Thin prep Papanicolaou smear with manual screeningOrdered By: Quirino Savage on 01-04-2023 Thin prep Papanicolaou smear with manual screening 2 5-15 [facility] Absolute lymphocyte countOrd ered By: Madeline Mccarthy on 12-04-2022 Lymphocytes Auto (Unsp spec) [#/Vol] 2.22 10*3/uL 0.83-4.51 [facility] Basophil percentageOrdered B y: Madeline Mccarthy on 12-04-2022 Basophils/100 WBC (Bld) 0.7 % 0-1 [facility] Bilirubin [Mass/Vol] 0.80 mg/dL 0.20-1.00 [facility] Comment on above: For patients on eltr ombopag therapy, use of Dimension [place] TBIL is not recommended. Chloride [Moles/Vol] 111 mmol/L 98-107 [facility] Cholesterol [Mass/Vol] 184 mg/dL <200 [facility] Comment on above: <200 mg/dL Desirable 200-240 mg/dL Borderline >240 mg/dL High Risk Eosinophils/100 WBC (Bld) 2.0 % 0-5 [facility] Glucose [Mass/Vol] 106 mg/dL 74-106 [facility] Comment on above: Fasting Glucose resu lt from 100 to 125 mg/dL suggests IMPAIRED HOMEOSTASIS per A.D.A. criteria. Neutrophils (Bld) [#/Vol] 3.2 10*3/uL 2.0-7.7 [facility] Neutrophils/100 WBC (Bld) 52.6 % 47-70 [facility] Potassium [Moles/Vol] 3.9 mmol/L 3.5-5.1 [facility] Protein [Mass/Vol] 6.7 g/dL 6.4-8.2 [facility] Sodium [Moles/Vol] 141 mmol/L 136-145 [facility] Testosterone [Mass/Vol] 417.84 ng/dL [facility] Comment on above: CENTRAL 90% REFERENC E RANGES MALE AGE <50 197.44 - 669.58 ng/dL MALE AGE > or = 50 187.72 - 684.19 ng/dL FEMALE AGE <50 8.38 - 35.01 ng/dL FEMALE AGE > or = 50 <7.00 - 35.92 ng/dL Effective as of 10/25/20 Triglyceride [Mass/Vol] 93 mg/dL <199 [facility] Comment on above: The drugs N-Acetylcy steine and Metamizole may falsely depress this assay.Serum Triglycerides Reference Interval Normal <150 mg/dL Borderline high 150 - 199 mg/dL High 200 - 499 mg/dL Very High > or = 500 mg/dL WBC (Bld) [#/Vol] 6.0 10*3/uL 4.4-11.0 [facility] Blood erythrocytes count (nu mber/volume)Ordered By: Madeline Mccarthy on 12-04-2022 RBC (Bld) [#/Vol] 5.25 10*6/uL 4.2-5.4 [facility] Blood hemoglobin measurement (mass/volume)Ordered By: Madeline Mccarthy on 12-04-2022 Hemoglobin (Bld) [Mass/Vol] 15.5 g/dL 12.0-15. 0 [facility] Blood lymphocytes/100 leukoc ytesOrdered By: Madeline Mccarthy on 12-04-2022 Lymphocytes/100 WBC (Bld) 36.8 % 19-41 [facility] Blood monocytes/100 leukocyt esOrdered By: Madeline Mccarthy on 12-04-2022 Monocytes/100 WBC (Bld) 7.6 % 0-10 [facility] Blood platelet mean volumeOr dered By: Madeline Mccarthy on 12-04-2022 Platelet mean volume (Bld) [Entitic vol] 10.4 fL 6.2-12.0 [facility] Determination of erythrocyte mean corpuscular volume (MCV)Ordered By: Madeline Mccarthy on 12-04-2022 MCV (RBC) [Entitic vol] 90.1 fL 81-99 [facility] Hematocrit Auto (Bld) [Volum e fraction]Ordered By: Madeline Mccarthy on 12-04-2022 Hematocrit (Bld) [Volume fraction] 47.3 % 37-47 [facility] Laboratory - Chemistry and C hemistry - challengeOrdered By: Madeline Mccarthy on 12-04-2022 ALP [Catalytic activity/Vol] 83 U/L 45-117 [facility] ALT [Catalytic activity/Vol] 36 U/L 13-56 [facility] CO2 [Moles/Vol] 22.0 mmol/L 21.0-32.0 [facility] Globulin (S) [Mass/Vol] 3.6 g/dL 2.2-4.2 [facility] Urea nitrogen/Creatinine [Mass ratio] 16.5 mg/mg 10-20 [facility] - Hematology and Cell countsOrdered By: Madeline Mccarthy on 12-04-2022 Erythrocyte distribution width (RBC) [Entitic vol] 50.4 fL 35.1-43.9 [facility] Erythrocyte distribution width (RBC) [Ratio] 15.2 % 11.6-14.6 [facility] Immature granulocytes/100 WBC (Bld) 0.300 % 0.0-0.9 [facility] Comment on above: IG% - Immature Granu locytes (promyelocytes, myelocytes and metamyelocytes) > 1% indicates that a LEFT SHIFT is Present. MCH (RBC) [Entitic mass] 29.5 pg 27.0-32.0 [facility] Nucleated RBC/100 WBC (Bld) [Ratio] 0 % 0-5 [facility] MCHC Auto (RBC) [Mass/Vol]Or dered By: Madeline Mccarthy on 12-04-2022 MCHC (RBC) [Mass/Vol] 32.8 g/dL 32-36 [facility] No Panel InformationOrdered By: Madeline Mccarthy on 12-04-2022 Dehydroepiandrosterone Sulfate 42.4 ug/dL 20.4-186.6 [facility] Comment on above: Performed at: [address] [id number] Director: Mukul Wilkes PhD, Phone: [phone] Estimated GFR (MDRD) Amer 74 mL/min >60 [facility] Comment on above: GFR Calc Estimated GFR (MDRD) Non-Af Amer 61 mL/min >60 [facility] Comment on above: Non- GFR Calc Free Triiodothyronine (T3) pg/dL 3.0 pg/mL 2.18-3.98 [facility] Thyroid Stimulating Hormone (TSH) 3.16 uIU/mL 0.358-3.74 [facility] Vitamin D 25-Hydroxy 59.3 ng/mL [facility] Comment on above: Vitamin D 25(OH) Sta tus Range Deficiency <20 ng/mL (50nmol/L) Insufficiency 20 - 30 ng/mL (50 - 75 nmol/L) Sufficiency 30 - 100 ng/mL (75 - 250 nmol/L) Toxicity >100 ng/mL (>250 nmol/L) Platelets bldOrdered By: Diego Mccarthy on 12-04-2022 Platelets (Bld) [#/Vol] 288 10*3/uL 150-450 [facility] Serum or plasma albumin vanesa urement (mass/volume)Ordered By: Madeline Mccarthy on 12-04-2022 Albumin [Mass/Vol] 3.1 g/dL 3.2-5.0 [facility] Serum or plasma albumin/glob ulin mass ratioOrdered By: Madeline Mccarthy on 12-04-2022 Albumin/Globulin [Mass ratio] 0.9 {ratio} 0.9-2.4 [facility] Serum or plasma calcium vanesa urement (mass/volume)Ordered By: Madeline Mccarthy on 12-04-2022 Calcium [Mass/Vol] 8.7 mg/dL 8.5-10.1 [facility] Serum or plasma cholesterol in HDL measurement (mass/volume)Ordered By: Madeline Mccarthy on 12-04-2022 Cholesterol in HDL [Mass/Vol] 48 mg/dL >40 [facility] Comment on above: The drugs N-Acetylcy steine and Metamizole may falsely depress this assay. Reference Range HDL <40 mg/dL Low HDL Cholesterol HDL >or= 60 mg/dL High HDL Cholesterol Serum or plasma cholesterol in VLDL measurement (mass/volume)Ordered By: Madeline Mccarthy on 12-04-2022 Cholesterol in VLDL [Mass/Vol] 19 mg/dL 5-40 [facility] Serum or plasma creatinine m easurement (mass/volume)Ordered By: Madeline Mccarthy on 12-04-2022 Creatinine [Mass/Vol] 0.97 mg/dL 0.55-1.02 [facility] Comment on above: The validity of the calculated GFR & GFRAA in patients over 70 years has not been determined. Clinical correlation is essential. Serum or plasma estradiol (E 2) measurement (mass/volume)Ordered By: Madeline Mccarthy on 12-04-2022 E2 [Mass/Vol] 19.0 pg/mL [facility] Comment on above: NORMAL REFERENCE RAN GES FEMALE FOLLICULAR 21.4 - 164.8 pg/mL MID-CYCLE PEAK 49.9 - 367.2 pg/mL LUTEAL 40.2 - 259.0 pg/mL POST-MENOPAUSAL ON MHT <11.0 - 462.1 pg/mL NOT ON MHT <11.0 - 58.3 pg/mL MALE <11.0 - 52.5 pg/mL NOTE:[employer] HAS CONFIRMED THE DRUG FULVETRANT (FASLODEX) MAY CAUSE FALSELY ELEVATED ESTRADIOL RESULTS WHEN USING THIS TEST METHOD. IF PATIENT IS TAKING FULVESTRANT AN ALTERNATIVE METHOD SHOULD BE USED TO DETERMINE ESTRADIOL CONCENTRATION. Serum or plasma low density lipoprotein (LDL) cholesterol measurement (mass/volume)Ordered By: Madeline Mccarthy on 12-04-2022 Cholesterol in LDL [Mass/Vol] 117 mg/dL 0-130 [facility] Serum or plasma progesterone measurement (mass/volume)Ordered By: Madeline Mccarthy on 12-04-2022 Progesterone [Mass/Vol] 0.22 ng/mL See Comment [facility] Comment on above: Progesterone Referen ce Table: UNITS Female: Follicular 0.15 - 1.40 ng/mL Luteal 3.34 - 25.56 ng/mL Mid-luteal 4.44 - 28.03 ng/mL Postmenopausal 0.0 - 0.73 ng/mL : 1st Trimester 11.22 - 90.00 ng/mL 2nd Trimester 25.55 - 89.40 ng/mL 3rd Trimester 48.40 -422.50 ng/mL Serum or plasma urea nitroge n measurement (mass/volume)Ordered By: Madeline Mccarthy on 12-04-2022 Urea nitrogen [Mass/Vol] 16 mg/dL 7-18 [facility] Thin prep Papanicolaou smear with manual screeningOrdered By: Madeline Mccarthy on 12-04-2022 Thin prep Papanicolaou smear with manual screening 31 U/L 15-37 [facility] Thin prep Papanicolaou smear with manual screening 8 5-15 [facility] Basophil percentageon 2022 Testosterone [Mass/Vol] 250.41 ng/dL [facility] Comment on above: CENTRAL 90% REFERENC E RANGES MALE AGE <50 197.44 - 669.58 ng/dL MALE AGE > or = 50 187.72 - 684.19 ng/dL FEMALE AGE <50 8.38 - 35.01 ng/dL FEMALE AGE > or = 50 <7.00 - 35.92 ng/dL Effective as of 10/25/20 No Panel Informationon 09-24 Free Triiodothyronine (T3) pg/dL 2.3 pg/mL 2.18-3.98 [facility] Thyroid Stimulating Hormone (TSH) 3.69 uIU/mL 0.358-3.74 [facility] Serum or plasma estradiol (E 2) measurement (mass/volume)on 09-24-2022 E2 [Mass/Vol] 20.6 pg/mL [facility] Comment on above: NORMAL REFERENCE RAN GES FEMALE FOLLICULAR 21.4 - 164.8 pg/mL MID-CYCLE PEAK 49.9 - 367.2 pg/mL LUTEAL 40.2 - 259.0 pg/mL POST-MENOPAUSAL ON MHT <11.0 - 462.1 pg/mL NOT ON MHT <11.0 - 58.3 pg/mL MALE <11.0 - 52.5 pg/mL NOTE:[employer] HAS CONFIRMED THE DRUG FULVETRANT (FASLODEX) MAY CAUSE FALSELY ELEVATED ESTRADIOL RESULTS WHEN USING THIS TEST METHOD. IF PATIENT IS TAKING FULVESTRANT AN ALTERNATIVE METHOD SHOULD BE USED TO DETERMINE ESTRADIOL CONCENTRATION. Serum or plasma progesterone measurement (mass/volume)on 09-24-2022 Progesterone [Mass/Vol] 0.26 ng/mL See Comment [facility] Comment on above: Progesterone Referen ce Table: UNITS Female: Follicular 0.15 - 1.40 ng/mL Luteal 3.34 - 25.56 ng/mL Mid-luteal 4.44 - 28.03 ng/mL Postmenopausal 0.0 - 0.73 ng/mL : 1st Trimester 11.22 - 90.00 ng/mL 2nd Trimester 25.55 - 89.40 ng/mL 3rd Trimester 48.40 -422.50 ng/mL Basophil percentageOrdered B y: Dr. Thomas on 06-26-2022 Testosterone [Mass/Vol] 349.66 ng/dL [facility] Comment on above: CENTRAL 90% REFERENC E RANGES MALE AGE <50 197.44 - 669.58 ng/dL MALE AGE > or = 50 187.72 - 684.19 ng/dL FEMALE AGE <50 8.38 - 35.01 ng/dL FEMALE AGE > or = 50 <7.00 - 35.92 ng/dL Effective as of 10/25/20 No Panel InformationOrdered By: Dr. Thomas on 06-26-2022 Free Triiodothyronine (T3) pg/dL 2.5 pg/mL 2.18-3.98 [facility] Thyroid Stimulating Hormone (TSH) 2.46 uIU/mL 0.358-3.74 [facility] Serum or plasma estradiol (E 2) measurement (mass/volume)Ordered By: Dr. Thomas on 06-26-2022 E2 [Mass/Vol] 20.0 pg/mL [facility] Comment on above: NORMAL REFERENCE RAN GES FEMALE FOLLICULAR 21.4 - 164.8 pg/mL MID-CYCLE PEAK 49.9 - 367.2 pg/mL LUTEAL 40.2 - 259.0 pg/mL POST-MENOPAUSAL ON MHT <11.0 - 462.1 pg/mL NOT ON MHT <11.0 - 58.3 pg/mL MALE <11.0 - 52.5 pg/mL NOTE:[employer] HAS CONFIRMED THE DRUG FULVETRANT (FASLODEX) MAY CAUSE FALSELY ELEVATED ESTRADIOL RESULTS WHEN USING THIS TEST METHOD. IF PATIENT IS TAKING FULVESTRANT AN ALTERNATIVE METHOD SHOULD BE USED TO DETERMINE ESTRADIOL CONCENTRATION. Serum or plasma progesterone measurement (mass/volume)Ordered By: Dr. Thomas on 06-26-2022 Progesterone [Mass/Vol] 0.23 ng/mL See Comment [facility] Comment on above: Progesterone Referen ce Table: UNITS Female: Follicular 0.15 - 1.40 ng/mL Luteal 3.34 - 25.56 ng/mL Mid-luteal 4.44 - 28.03 ng/mL Postmenopausal 0.0 - 0.73 ng/mL : 1st Trimester 11.22 - 90.00 ng/mL 2nd Trimester 25.55 - 89.40 ng/mL 3rd Trimester 48.40 -422.50 ng/mL Absolute lymphocyte countOrd ered By: Dr. Thomas on 03-19-2022 Lymphocytes Auto (Unsp spec) [#/Vol] 3.01 10*3/uL 0.83-4.51 [facility] Basophil percentageOrdered B y: Dr. Thomas on 03-19-2022 Basophils/100 WBC (Bld) 0.2 % 0-1 [facility] Eosinophils/100 WBC (Bld) 0.0 % 0-5 [facility] Neutrophils (Bld) [#/Vol] 9.0 10*3/uL 2.0-7.7 [facility] Neutrophils/100 WBC (Bld) 69.9 % 47-70 [facility] Testosterone [Mass/Vol] 464.52 ng/dL [facility] Comment on above: CENTRAL 90% REFERENC E RANGES MALE AGE <50 197.44 - 669.58 ng/dL MALE AGE > or = 50 187.72 - 684.19 ng/dL FEMALE AGE <50 8.38 - 35.01 ng/dL FEMALE AGE > or = 50 <7.00 - 35.92 ng/dL Effective as of 10/25/20 WBC (Bld) [#/Vol] 12.8 10*3/uL 4.4-11.0 [facility] Blood erythrocytes count (nu mber/volume)Ordered By: Dr. Thomas on 03-19-2022 RBC (Bld) [#/Vol] 5.34 10*6/uL 4.2-5.4 [facility] Blood hemoglobin measurement (mass/volume)Ordered By: Dr. Thomas on 03-19-2022 Hemoglobin (Bld) [Mass/Vol] 16.1 g/dL 12.0-15. 0 [facility] Blood lymphocytes/100 leukoc ytesOrdered By: Dr. Thomas on 03-19-2022 Lymphocytes/100 WBC (Bld) 23.5 % 19-41 [facility] Blood monocytes/100 leukocyt esOrdered By: Dr. Thomas on 03-19-2022 Monocytes/100 WBC (Bld) 5.6 % 0-10 [facility] Blood platelet mean volumeOr dered By: Dr. Thomas on 03-19-2022 Platelet mean volume (Bld) [Entitic vol] 10.5 fL 6.2-12.0 [facility] Determination of erythrocyte mean corpuscular volume (MCV)Ordered By: Dr. Thomas on 03-19-2022 MCV (RBC) [Entitic vol] 89.3 fL 81-99 [facility] Hematocrit Auto (Bld) [Volum e fraction]Ordered By: Dr. Thomas on 03-19-2022 Hematocrit (Bld) [Volume fraction] 47.7 % 37-47 [facility] Laboratory - Chemistry and C hemistry - challengeOrdered By: Dr. Thomas on 03-19-2022 Free T4 [Mass/Vol] 0.78 ng/dL 0.76-1.46 [facility] - Hematology and Cell countsOrdered By: Dr. Thomas on 03-19-2022 Erythrocyte distribution width (RBC) [Entitic vol] 47.8 fL 35.1-43.9 [facility] [facility] Erythrocyte distribution width (RBC) [Ratio] 14.6 % 11.6-14.6 [facility] Immature granulocytes/100 WBC (Bld) 0.800 % 0.0-0.9 [facility] Comment on above: IG% - Immature Granu locytes (promyelocytes, myelocytes and metamyelocytes) > 1% indicates that a LEFT SHIFT is Present. MCH (RBC) [Entitic mass] 30.1 pg 27.0-32.0 [facility] Nucleated RBC/100 WBC (Bld) [Ratio] 0 % 0-5 [facility] MCHC Auto (RBC) [Mass/Vol]Or dered By: Dr. Thomas on 03-19-2022 MCHC (RBC) [Mass/Vol] 33.8 g/dL 32-36 [facility] No Panel InformationOrdered By: Dr. Thomas on 03-19-2022 Free Triiodothyronine (T3) pg/dL 4.0 pg/mL 2.18-3.98 [facility] Thyroid Stimulating Hormone (TSH) 0.81 uIU/mL 0.358-3.74 [facility] Platelets bldOrdered By: Dr. Thomas on 03-19-2022 Platelets (Bld) [#/Vol] 352 10*3/uL 150-450 [facility] Serum or plasma estradiol (E 2) measurement (mass/volume)Ordered By: Dr. Thomas on 03-19-2022 E2 [Mass/Vol] 29.6 pg/mL [facility] Comment on above: NORMAL REFERENCE RAN GES FEMALE FOLLICULAR 21.4 - 164.8 pg/mL MID-CYCLE PEAK 49.9 - 367.2 pg/mL LUTEAL 40.2 - 259.0 pg/mL POST-MENOPAUSAL ON MHT <11.0 - 462.1 pg/mL NOT ON MHT <11.0 - 58.3 pg/mL MALE <11.0 - 52.5 pg/mL NOTE:[employer] HAS CONFIRMED THE DRUG FULVETRANT (FASLODEX) MAY CAUSE FALSELY ELEVATED ESTRADIOL RESULTS WHEN USING THIS TEST METHOD. IF PATIENT IS TAKING FULVESTRANT AN ALTERNATIVE METHOD SHOULD BE USED TO DETERMINE ESTRADIOL CONCENTRATION. Serum or plasma progesterone measurement (mass/volume)Ordered By: Dr. Thomas on 03-19-2022 Progesterone [Mass/Vol] 0.36 ng/mL See Comment [facility] Comment on above: Progesterone Referen ce Table: UNITS Female: Follicular 0.15 - 1.40 ng/mL Luteal 3.34 - 25.56 ng/mL Mid-luteal 4.44 - 28.03 ng/mL Postmenopausal 0.0 - 0.73 ng/mL : 1st Trimester 11.22 - 90.00 ng/mL 2nd Trimester 25.55 - 89.40 ng/mL 3rd Trimester 48.40 -422.50 ng/mL Absolute lymphocyte counton 12-19-2021 Lymphocytes Auto (Unsp spec) [#/Vol] 1.85 10*3/uL 0.83-4.51 [facility] Work Phone: Basophil percentageon 2021 Basophils/100 WBC (Bld) 0.7 % 0-1 [facility] Work Phone: Bilirubin [Mass/Vol] 0.70 mg/dL 0.20-1.00 [facility] Work Phone: Comment on above: For patients on eltr ombopag therapy, use of Dimension [place] TBIL is not recommended. Chloride [Moles/Vol] 107 mmol/L 98-107 [facility] Work Phone: Cholesterol [Mass/Vol] 173 mg/dL <200 [facility] Work Phone: Comment on above: <200 mg/dL Desirable 200-240 mg/dL Borderline >240 mg/dL High Risk Eosinophils/100 WBC (Bld) 3.3 % 0-5 [facility] Work Phone: Glucose [Mass/Vol] 93 mg/dL 74-106 [facility] Work Phone: Neutrophils (Bld) [#/Vol] 3.6 10*3/uL 2.0-7.7 [facility] Work Phone: Neutrophils/100 WBC (Bld) 59.5 % 47-70 [facility] Work Phone: Potassium [Moles/Vol] 3.8 mmol/L 3.5-5.1 [facility] Work Phone: [phone] Protein [Mass/Vol] 7.2 g/dL 6.4-8.2 [facility] Work Phone: Sodium [Moles/Vol] 143 mmol/L 136-145 [facility] Work Phone: Testosterone [Mass/Vol] 466.54 ng/dL [facility] Work Phone: Comment on above: CENTRAL 90% REFERENC E RANGES MALE AGE <50 197.44 - 669.58 ng/dL MALE AGE > or = 50 187.72 - 684.19 ng/dL FEMALE AGE <50 8.38 - 35.01 ng/dL FEMALE AGE > or = 50 <7.00 - 35.92 ng/dL Effective as of 10/25/20 Triglyceride [Mass/Vol] 95 mg/dL <199 [facility] Work Phone: Comment on above: The drugs N-Acetylcy steine and Metamizole may falsely depress this assay.Serum Triglycerides Reference Interval Normal <150 mg/dL Borderline high 150 - 199 mg/dL High 200 - 499 mg/dL Very High > or = 500 mg/dL WBC (Bld) [#/Vol] 6.1 10*3/uL 4.4-11.0 [facility] Work Phone: Blood erythrocytes count (nu mber/volume)on 12-19-2021 RBC (Bld) [#/Vol] 5.05 10*6/uL 4.2-5.4 [facility] Work Phone: Blood hemoglobin measurement (mass/volume)on 12-19-2021 Hemoglobin (Bld) [Mass/Vol] 15.4 g/dL 12.0-15. 0 [facility] Work Phone: Blood lymphocytes/100 leukoc yteson 12-19-2021 Lymphocytes/100 WBC (Bld) 30.5 % 19-41 [facility] Work Phone: Blood monocytes/100 leukocyt eson 12-19-2021 Monocytes/100 WBC (Bld) 5.8 % 0-10 [facility] Work Phone: Blood platelet mean volumeon 12-19-2021 Platelet mean volume (Bld) [Entitic vol] 10.4 fL 6.2-12.0 [facility] Work Phone: Determination of erythrocyte mean corpuscular volume (MCV)on 12-19-2021 MCV (RBC) [Entitic vol] 90.3 fL 81-99 [facility] Work Phone: Hematocrit Auto (Bld) [Volum e fraction]on 12-19-2021 Hematocrit (Bld) [Volume fraction] 45.6 % 37-47 [facility] Work Phone: Laboratory - Chemistry and C hemistry - challengeon 12-19-2021 ALP [Catalytic activity/Vol] 99 U/L 45-117 [facility] Work Phone: ALT [Catalytic activity/Vol] 30 U/L 13-56 [facility] Work Phone: CO2 [Moles/Vol] 28.0 mmol/L 21.0-32.0 [facility] Work Phone: Free T4 [Mass/Vol] 0.71 ng/dL 0.76-1.46 [facility] Work Phone: Globulin (S) [Mass/Vol] 3.9 g/dL 2.2-4.2 [facility] Work Phone: Urea nitrogen/Creatinine [Mass ratio] 13.6 mg/mg 10-20 [facility] Work Phone: Laboratory - Hematology and Cell countson 12-19-2021 Erythrocyte distribution width (RBC) [Entitic vol] 47.1 fL 35.1-43.9 [facility] Work Phone: Erythrocyte distribution width (RBC) [Ratio] 14.3 % 11.6-14.6 [facility] Work Phone: Immature granulocytes/100 WBC (Bld) 0.200 % 0.0-0.9 [facility] Work Phone: Comment on above: IG% - Immature Granu locytes (promyelocytes, myelocytes and metamyelocytes) > 1% indicates that a LEFT SHIFT is Present. MCH (RBC) [Entitic mass] 30.5 pg 27.0-32.0 [facility] Work Phone: Nucleated RBC/100 WBC (Bld) [Ratio] 0 % 0-5 [facility] Work Phone: MCHC Auto (RBC) [Mass/Vol]on 12-19-2021 MCHC (RBC) [Mass/Vol] 33.8 g/dL 32-36 [facility] Work Phone: No Panel Informationon 12-19 Dehydroepiandrosterone Sulfate 66.4 ug/dL 29.4-220.5 [facility] Work Phone: Comment on above: Performed at: [address] [id number] Director: Mukul Wilkes PhD, Phone: [phone] Estimated GFR (MDRD) Amer 76 mL/min >60 [facility] Work Phone: Comment on above: GFR Calc Estimated GFR (MDRD) Non-Af Amer 62 mL/min >60 [facility] Work Phone: Comment on above: Non- GFR Calc Free Triiodothyronine (T3) pg/dL 2.5 pg/mL 2.18-3.98 [facility] Work Phone: Thyroid Stimulating Hormone (TSH) 1.40 uIU/mL 0.358-3.74 [facility] Work Phone: Platelets bldon 12-19-2021 Platelets (Bld) [#/Vol] 303 10*3/uL 150-450 [facility] Work Phone: Serum or plasma albumin vanesa urement (mass/volume)on 12-19-2021 Albumin [Mass/Vol] 3.3 g/dL 3.2-5.0 [facility] Work Phone: Serum or plasma albumin/glob ulin mass ratioon 12-19-2021 Albumin/Globulin [Mass ratio] 0.8 {ratio} 0.9-2.4 [facility] Work Phone: Serum or plasma calcium vanesa urement (mass/volume)on 12-19-2021 Calcium [Mass/Vol] 9.0 mg/dL 8.5-10.1 [facility] Work Phone: Serum or plasma cholesterol in HDL measurement (mass/volume)on 12-19-2021 Cholesterol in HDL [Mass/Vol] 45 mg/dL >40 [facility] Work Phone: Comment on above: The drugs N-Acetylcy steine and Metamizole may falsely depress this assay. Reference Range HDL <40 mg/dL Low HDL Cholesterol HDL >or= 60 mg/dL High HDL Cholesterol Serum or plasma cholesterol in VLDL measurement (mass/volume)on 12-19-2021 Cholesterol in VLDL [Mass/Vol] 19 mg/dL 5-40 [facility] Work Phone: Serum or plasma creatinine m easurement (mass/volume)on 12-19-2021 Creatinine [Mass/Vol] 0.96 mg/dL 0.55-1.02 [facility] Work Phone: Comment on above: The validity of the calculated GFR & GFRAA in patients over 70 years has not been determined. Clinical correlation is essential. Serum or plasma estradiol (E 2) measurement (mass/volume)on 12-19-2021 E2 [Mass/Vol] 17.3 pg/mL [facility] Work Phone: Comment on above: NORMAL REFERENCE RAN GES FEMALE FOLLICULAR 21.4 - 164.8 pg/mL MID-CYCLE PEAK 49.9 - 367.2 pg/mL LUTEAL 40.2 - 259.0 pg/mL POST-MENOPAUSAL ON MHT <11.0 - 462.1 pg/mL NOT ON MHT <11.0 - 58.3 pg/mL MALE <11.0 - 52.5 pg/mL NOTE:[employer] HAS CONFIRMED THE DRUG FULVETRANT (FASLODEX) MAY CAUSE FALSELY ELEVATED ESTRADIOL RESULTS WHEN USING THIS TEST METHOD. IF PATIENT IS TAKING FULVESTRANT AN ALTERNATIVE METHOD SHOULD BE USED TO DETERMINE ESTRADIOL CONCENTRATION. Serum or plasma low density lipoprotein (LDL) cholesterol measurement (mass/volume)on 12-19-2021 Cholesterol in LDL [Mass/Vol] 109 mg/dL 0-130 [facility] Work Phone: Serum or plasma progesterone measurement (mass/volume)on 12-19-2021 Progesterone [Mass/Vol] 0.38 ng/mL See Comment [facility] Work Phone: Comment on above: Progesterone Referen ce Table: UNITS Female: Follicular 0.15 - 1.40 ng/mL Luteal 3.34 - 25.56 ng/mL Mid-luteal 4.44 - 28.03 ng/mL Postmenopausal 0.0 - 0.73 ng/mL : 1st Trimester 11.22 - 90.00 ng/mL 2nd Trimester 25.55 - 89.40 ng/mL 3rd Trimester 48.40 -422.50 ng/mL Serum or plasma urea nitroge n measurement (mass/volume)on 12-19-2021 Urea nitrogen [Mass/Vol] 13 mg/dL 7-18 [facility] Work Phone: Thin prep Papanicolaou smear with manual screeningon 12-19-2021 Thin prep Papanicolaou smear with manual screening 23 U/L 15-37 [facility] Work Phone: Thin prep Papanicolaou smear with manual screening 8 5-15 [facility] Work Phone: Basophil percentageon 2021 Testosterone [Mass/Vol] 266.88 ng/dL [facility] Work Phone: Comment on above: CENTRAL 90% REFERENC E RANGES MALE AGE <50 197.44 - 669.58 ng/dL MALE AGE > or = 50 187.72 - 684.19 ng/dL FEMALE AGE <50 8.38 - 35.01 ng/dL FEMALE AGE > or = 50 <7.00 - 35.92 ng/dL Effective as of 10/25/20 No Panel Informationon 10-17 Free Triiodothyronine (T3) pg/dL 4.5 pg/mL 2.18-3.98 [facility] Work Phone: Thyroid Stimulating Hormone (TSH) 1.74 uIU/mL 0.358-3.74 [facility] Work Phone: Serum or plasma estradiol (E 2) measurement (mass/volume)on 10-17-2021 E2 [Mass/Vol] 23.7 pg/mL [facility] Work Phone: Comment on above: NORMAL REFERENCE RAN GES FEMALE FOLLICULAR 21.4 - 164.8 pg/mL MID-CYCLE PEAK 49.9 - 367.2 pg/mL LUTEAL 40.2 - 259.0 pg/mL POST-MENOPAUSAL ON MHT <11.0 - 462.1 pg/mL NOT ON MHT <11.0 - 58.3 pg/mL MALE <11.0 - 52.5 pg/mL NOTE:[employer] HAS CONFIRMED THE DRUG FULVETRANT (FASLODEX) MAY CAUSE FALSELY ELEVATED ESTRADIOL RESULTS WHEN USING THIS TEST METHOD. IF PATIENT IS TAKING FULVESTRANT AN ALTERNATIVE METHOD SHOULD BE USED TO DETERMINE ESTRADIOL CONCENTRATION. Serum or plasma progesterone measurement (mass/volume)on 10-17-2021 Progesterone [Mass/Vol] 0.35 ng/mL See Comment [facility] Work Phone: Comment on above: Progesterone Referen ce Table: UNITS Female: Follicular 0.15 - 1.40 ng/mL Luteal 3.34 - 25.56 ng/mL Mid-luteal 4.44 - 28.03 ng/mL Postmenopausal 0.0 - 0.73 ng/mL : 1st Trimester 11.22 - 90.00 ng/mL 2nd Trimester 25.55 - 89.40 ng/mL 3rd Trimester 48.40 -422.50 ng/mL Basophil percentageon 2021 Testosterone [Mass/Vol] 226.97 ng/dL [facility] Work Phone: Comment on above: CENTRAL 90% REFERENC E RANGES MALE AGE <50 197.44 - 669.58 ng/dL MALE AGE > or = 50 187.72 - 684.19 ng/dL FEMALE AGE <50 8.38 - 35.01 ng/dL FEMALE AGE > or = 50 <7.00 - 35.92 ng/dL Effective as of 10/25/20 No Panel Informationon 07-10 Dehydroepiandrosterone Sulfate 96.9 ug/dL [facility] Work Phone: Comment on above: Performed at: [address] [id number] Director: Mukul Wilkes PhD, Phone: [phone] Free Triiodothyronine (T3) pg/dL 3.4 pg/mL 2.18-3.98 [facility] Work Phone: Serum or plasma estradiol (E 2) measurement (mass/volume)on 07-10-2021 E2 [Mass/Vol] 34.1 pg/mL [facility] Work Phone: Comment on above: NORMAL REFERENCE RAN GES FEMALE FOLLICULAR 21.4 - 164.8 pg/mL MID-CYCLE PEAK 49.9 - 367.2 pg/mL LUTEAL 40.2 - 259.0 pg/mL POST-MENOPAUSAL ON MHT <11.0 - 462.1 pg/mL NOT ON MHT <11.0 - 58.3 pg/mL MALE <11.0 - 52.5 pg/mL NOTE:[employer] HAS CONFIRMED THE DRUG FULVETRANT (FASLODEX) MAY CAUSE FALSELY ELEVATED ESTRADIOL RESULTS WHEN USING THIS TEST METHOD. IF PATIENT IS TAKING FULVESTRANT AN ALTERNATIVE METHOD SHOULD BE USED TO DETERMINE ESTRADIOL CONCENTRATION. Serum or plasma progesterone measurement (mass/volume)on 07-10-2021 Progesterone [Mass/Vol] 0.34 ng/mL See Comment [facility] Work Phone: Comment on above: Progesterone Referen ce Table: UNITS Female: Follicular 0.15 - 1.40 ng/mL Luteal 3.34 - 25.56 ng/mL Mid-luteal 4.44 - 28.03 ng/mL Postmenopausal 0.0 - 0.73 ng/mL : 1st Trimester 11.22 - 90.00 ng/mL 2nd Trimester 25.55 - 89.40 ng/mL 3rd Trimester 48.40 -422.50 ng/mL Basophil percentageon 2020 Testosterone [Mass/Vol] 22.99 ng/dL [facility] Work Phone: Comment on above: CENTRAL 90% REFERENC E RANGES MALE AGE <50 197.44 - 669.58 ng/dL MALE AGE > or = 50 187.72 - 684.19 ng/dL FEMALE AGE <50 8.38 - 35.01 ng/dL FEMALE AGE > or = 50 <7.00 - 35.92 ng/dL Effective as of 10/25/20 No Panel Informationon 03-30 Dehydroepiandrosterone Sulfate 58.2 ug/dL [facility] Work Phone: Comment on above: Performed at: [place] [id number] Director: Mukul Wilkes PhD, Phone: [phone] Free Triiodothyronine (T3) pg/dL 3.8 pg/mL 2.18-3.98 [facility] Work Phone: Serum or plasma estradiol (E 2) measurement (mass/volume)on 03-30-2021 E2 [Mass/Vol] 14.9 pg/mL [facility] Work Phone: Comment on above: NORMAL REFERENCE RAN GES FEMALE FOLLICULAR 21.4 - 164.8 pg/mL MID-CYCLE PEAK 49.9 - 367.2 pg/mL LUTEAL 40.2 - 259.0 pg/mL POST-MENOPAUSAL ON MHT <11.0 - 462.1 pg/mL NOT ON MHT <11.0 - 58.3 pg/mL MALE <11.0 - 52.5 pg/mL NOTE:[employer] HAS CONFIRMED THE DRUG FULVETRANT (FASLODEX) MAY CAUSE FALSELY ELEVATED ESTRADIOL RESULTS WHEN USING THIS TEST METHOD. IF PATIENT IS TAKING FULVESTRANT AN ALTERNATIVE METHOD SHOULD BE USED TO DETERMINE ESTRADIOL CONCENTRATION. Serum or plasma progesterone measurement (mass/volume)on 03-30-2021 Progesterone [Mass/Vol] 0.23 ng/mL See Comment [facility] Work Phone: Comment on above: Progesterone Referen ce Table: UNITS Female: Follicular 0.15 - 1.40 ng/mL Luteal 3.34 - 25.56 ng/mL Mid-luteal 4.44 - 28.03 ng/mL Postmenopausal 0.0 - 0.73 ng/mL : 1st Trimester 11.22 - 90.00 ng/mL 2nd Trimester 25.55 - 89.40 ng/mL 3rd Trimester 48.40 -422.50 ng/mL E2on 09-16-2020 Estradiol Level 24.31 pg/mL Normal [facility] ([place]) Comment on above: Result Comment: No te - New Reference Range in effect 19 Adult Female E2 Reference Ranges: Follicular phase 19.5 - 144.2 pg/mL Midcycle 63.9 - 356.7 pg/mL Luteal phase 55.8 - 214.2 pg/mL Post menopausal 0 - 33.2 pg/mL Performed By: #### A DIFF, ANEU, TSH, FT4, CBC, FT3 #### [address] [address] #### DHEAS, VIDH, TESTO, PROG, B12, E2 #### [place] [address] PROGon 09-16-2020 Progesterone Level <0.2 Normal [facility] ([place]) Comment on above: Performed By: #### A DIFF, ANEU, TSH, FT4, CBC, FT3 #### [place] [address] #### DHEAS, VIDH, TESTO, PROG, B12, E2 #### [place] [address] TESTOon 09-16-2020 Testosterone Lvl 423.86 ng/dL Normal [facility] ([place]) Comment on above: Result Comment: Norm al Reference Ranges for Females: Female Premenopause Age 21-60 9.01-47.94 ng/dL Female Postmenopause Age 45-89 <7.00-45.62 ng/dL Performed By: #### A DIFF, ANEU, TSH, FT4, CBC, FT3 #### [place] [address] #### DHEAS, VIDH, TESTO, PROG, B12, E2 #### [place] [address] B12on 08-13-2020 Cobalamin (Vitamin B12) [Mass/Vol] 1104 pg/mL High 211-911 [facility] ([place]) Comment on above: Performed By: #### A DIFF, ANEU, TSH, FT4, CBC, FT3 #### [place] [address] #### DHEAS, VIDH, TESTO, PROG, B12, E2 #### [place] [address] DHEASon 08-13-2020 DHEA-SO4 26.64 mcg/dL Normal 25.90-460.20 [facility] ([place]) Comment on above: Result Comment: No te - New Reference Range in effect 19 Performed By: #### A DIFF, ANEU, TSH, FT4, CBC, FT3 #### [place] [address] #### DHEAS, VIDH, TESTO, PROG, B12, E2 #### [place] [address] E2on 08-13-2020 Estradiol Level 22.54 pg/mL Normal [facility] ([place]) Comment on above: Result Comment: No te - New Reference Range in effect 19 Adult Female E2 Reference Ranges: Follicular phase 19.5 - 144.2 pg/mL Midcycle 63.9 - 356.7 pg/mL Luteal phase 55.8 - 214.2 pg/mL Post menopausal 0 - 33.2 pg/mL Performed By: #### A DIFF, ANEU, TSH, FT4, CBC, FT3 #### [place] [address] #### DHEAS, VIDH, TESTO, PROG, B12, E2 #### [place] [address] PROGon 08-13-2020 Progesterone Level 0.3 ng/mL Normal [facility] ([place]) Comment on above: Performed By: #### A DIFF, ANEU, TSH, FT4, CBC, FT3 #### [place] [address] #### DHEAS, VIDH, TESTO, PROG, B12, E2 #### [place] [address] TESTOon 08-13-2020 Testosterone Lvl 37.94 ng/dL Normal [facility] ([place]) Comment on above: Result Comment: Norm al Reference Ranges for Females: Female Premenopause Age 21-60 9.01-47.94 ng/dL Female Postmenopause Age 45-89 <7.00-45.62 ng/dL Performed By: #### A DIFF, ANEU, TSH, FT4, CBC, FT3 #### [place] [address] #### DHEAS, VIDH, TESTO, PROG, B12, E2 #### [address] [address] VIDHon 08-13-2020 Vit. D 25-Hydroxy 64.2 ng/mL Normal [facility] ([place]) Comment on above: Result Comment: Inte rpretive Values Based on Total 25(OH)D: Severe Deficiency <20 ng/mL Mild to Moderate Deficiency 20-30 ng/mL Optimum Levels 30-100 ng/mL Toxicity Possible >100 ng/mL Performed By: #### A DIFF, ANEU, TSH, FT4, CBC, FT3 #### [place] [address] #### DHEAS, VIDH, TESTO, PROG, B12, E2 #### [address] [address] .Auto Diffon 08-12-2020 Basophil, Absolute 0.00 10 3/mcL Normal 0.00-0.19 [facility] ([place]) Comment on above: Performed By: #### A DIFF, ANEU, TSH, FT4, CBC, FT3 #### [place] [address] #### DHEAS, VIDH, TESTO, PROG, B12, E2 #### [address] [address] Basophils/100 WBC (Bld) 0.4 % Normal 0.0-2.5 A [facility] ([place]) Comment on above: Performed By: #### A DIFF, ANEU, TSH, FT4, CBC, FT3 #### [place] [address] #### DHEAS, VIDH, TESTO, PROG, B12, E2 #### [place] [address] Eosinophil, Absolute 0.10 10 3/mcL Normal 0.00-0.40 A [facility] ([place]) Comment on above: Performed By: #### A DIFF, ANEU, TSH, FT4, CBC, FT3 #### [address] [address] #### DHEAS, VIDH, TESTO, PROG, B12, E2 #### [address] [address] Eosinophils/100 WBC (Bld) 1.3 % Normal 0.0-7.0 [facility] ([place]) Comment on above: Performed By: #### A DIFF, ANEU, TSH, FT4, CBC, FT3 #### [place] [address] #### DHEAS, VIDH, TESTO, PROG, B12, E2 #### [address] [address] Lymphocyte, Absolute 1.90 10 3/mcL Normal 0.77-3.85 [facility] ([place]) Comment on above: Performed By: #### A DIFF, ANEU, TSH, FT4, CBC, FT3 #### [place] [address] #### DHEAS, VIDH, TESTO, PROG, B12, E2 #### [address] [address] Lymphocytes/100 WBC (Bld) 24.4 % Normal 10.0-50.0 [facility] ([place]) Comment on above: Performed By: #### A DIFF, ANEU, TSH, FT4, CBC, FT3 #### [place] [address] #### DHEAS, VIDH, TESTO, PROG, B12, E2 #### [address] [address] Monocyte, Absolute 0.60 10 3/mcL Normal 0.15-1.00 [facility] ([place]) Comment on above: Performed By: #### A DIFF, ANEU, TSH, FT4, CBC, FT3 #### [place] [address] #### DHEAS, VIDH, TESTO, PROG, B12, E2 #### [address] [address] Monocytes/100 WBC (Bld) 7.6 % Normal 1.7-13.0 A [facility] ([place]) Comment on above: Performed By: #### A DIFF, ANEU, TSH, FT4, CBC, FT3 #### [address] [address] #### DHEAS, VIDH, TESTO, PROG, B12, E2 #### [address] [address] Neutrophils/100 WBC (Bld) 66.3 % Normal 37.0-80.0 [facility] ([place]) Comment on above: Performed By: #### A DIFF, ANEU, TSH, FT4, CBC, FT3 #### [address] [address] #### DHEAS, VIDH, TESTO, PROG, B12, E2 #### [address] [address] .NEUABSon 08-12-2020 Neutrophil, Absolute 5.20 10 3/mcL Normal 2.85-6.16 A [facility] ([place]) Comment on above: Performed By: #### A DIFF, ANEU, TSH, FT4, CBC, FT3 #### [address] [address] #### DHEAS, VIDH, TESTO, PROG, B12, E2 #### [address] [address] CBCon 08-12-2020 Erythrocyte distribution width (RBC) [Ratio] 14.2 % Normal 11.5-14.5 [facility] ([place]) Comment on above: Performed By: #### A DIFF, ANEU, TSH, FT4, CBC, FT3 #### [address] [address] #### DHEAS, VIDH, TESTO, PROG, B12, E2 #### [address] [address] Hematocrit (Bld) [Volume fraction] 42.5 % Normal 37.0-47.0 [facility] ([place]) Comment on above: Performed By: #### A DIFF, ANEU, TSH, FT4, CBC, FT3 #### [place] [address] #### DHEAS, VIDH, TESTO, PROG, B12, E2 #### [place] [address] Hgb 14.5 G/dL Normal 12.0-16.0 [facility] ([place]) Comment on above: Performed By: #### A DIFF, ANEU, TSH, FT4, CBC, FT3 #### [place] [address] #### DHEAS, VIDH, TESTO, PROG, B12, E2 #### [place] [address] MCH (RBC) [Entitic mass] 29.8 pg Normal 27.0-31.2 [facility] ([place]) Comment on above: Performed By: #### A DIFF, ANEU, TSH, FT4, CBC, FT3 #### [place] [address] #### DHEAS, VIDH, TESTO, PROG, B12, E2 #### [place] [address] MCHC 34.0 G/dL Normal 33.0-37.0 [facility] ([place]) Comment on above: Performed By: #### A DIFF, ANEU, TSH, FT4, CBC, FT3 #### [place] [address] #### DHEAS, VIDH, TESTO, PROG, B12, E2 #### [place] [address] MCV (RBC) [Entitic vol] 87.6 fL Normal 80.0-94.0 A [facility] ([place]) Comment on above: Performed By: #### A DIFF, ANEU, TSH, FT4, CBC, FT3 #### [place] [address] #### DHEAS, VIDH, TESTO, PROG, B12, E2 #### [address] [address] Platelet 295 10 3/mcL Normal 130-400 [facility] ([place]) Comment on above: Performed By: #### A DIFF, ANEU, TSH, FT4, CBC, FT3 #### [place] [address] #### DHEAS, VIDH, TESTO, PROG, B12, E2 #### [place] [address] Platelet mean volume (Bld) [Entitic vol] 8.9 fL Normal 7.4-10.4 [facility] ([place]) Comment on above: Performed By: #### A DIFF, ANEU, TSH, FT4, CBC, FT3 #### [place] [address] #### DHEAS, VIDH, TESTO, PROG, B12, E2 #### [place] [address] RBC 4.85 10 6/mcL Normal 4.20-5.40 [facility] ([place]) Comment on above: Performed By: #### A DIFF, ANEU, TSH, FT4, CBC, FT3 #### [place] [address] #### DHEAS, VIDH, TESTO, PROG, B12, E2 #### [place] [address] WBC 7.80 10 3/mcL Normal 4.60-10.80 [facility] [place] ([place]) Comment on above: Performed By: #### A DIFF, ANEU, TSH, FT4, CBC, FT3 #### [place] [address] #### DHEAS, VIDH, TESTO, PROG, B12, E2 #### [place] [address] FT3on 08-12-2020 Free T3 [Mass/Vol] 3.66 pg/mL Normal 2.30-4.00 [facility] ([place]) Comment on above: Performed By: #### A DIFF, ANEU, TSH, FT4, CBC, FT3 #### [address] [id number] #### DHEAS, VIDH, TESTO, PROG, B12, E2 #### [address] [address] FT4on 08-12-2020 Free T4 [Mass/Vol] 1.00 ng/dL Normal 0.76-1.46 [facility] ([place]) Comment on above: Performed By: #### A DIFF, ANEU, TSH, FT4, CBC, FT3 #### [address] [id number] #### DHEAS, VIDH, TESTO, PROG, B12, E2 #### [address] [address] TSHon 08-12-2020 TSH Qn 0.01 m[IU]/L Low 0.36-3.74 [facility] ([place]) Comment on above: Performed By: #### A DIFF, ANEU, TSH, FT4, CBC, FT3 #### [address] [address] #### DHEAS, VIDH, TESTO, PROG, B12, E2 #### [address] [address] Clinical Summary: HMSPatient IDon 12-29-2018 OOP [facility] Work Phone: Office Visit: New - 1st visi t with practice, Rm: 40on 12-29-2018 NEGATED: Highlighted rowxray history of the Lumbar Spine on 10/29/2018 at [facility] Work Phone: Vital Signs Date Time Vital Sign Value Performing Clinician Facility 12-16-2023 09:48-0400 Body mass index (BMI) [Ratio] 35.6 kg/m2 Mary Rivera APRN.CNP Work Phone: [facility] 12-16-2023 09:48-0400 Body temperature 97.5 [degF] Mary Rivera MEDICAL AUDITOR.LOG STACKER OPERATOR Work Phone: [facility] 12-16-2023 09:48-0400 Body weight 96.3 kg Oviedo Rivera MEDICAL AUDITOR.LOG STACKER OPERATOR Work Phone: [facility] 12-16-2023 09:48-0400 Diastolic blood pressure 86 mm[Hg] Oviedo Rivera MEDICAL AUDITOR.LOG STACKER OPERATOR Work Phone: [facility] 12-16-2023 09:48-0400 Heart rate 77 /min Mary Rivera MEDICAL AUDITOR.LOG STACKER OPERATOR Work Phone: [facility] 12-16-2023 09:48-0400 SaO2% (BldA) [Mass fraction] 96 % Mary Rivera MEDICAL AUDITOR.LOG STACKER OPERATOR Work Phone: [facility] 12-16-2023 09:48-0400 Systolic blood pressure 161 mm[Hg] Mary Rivera MEDICAL AUDITOR.LOG STACKER OPERATOR Work Phone: [facility] 05-28-2023 10:50-0500 Body temperature 99.19 [degF] Mary Rivera MEDICAL AUDITOR.LOG STACKER OPERATOR Work Phone: [facility] 05-28-2023 10:50-0500 Body weight 95.8 kg Mary Rivera MEDICAL AUDITOR.LOG STACKER OPERATOR Work Phone: [facility] 05-28-2023 10:50-0500 Diastolic blood pressure 89 mm[Hg] Mary Rivera MEDICAL AUDITOR.LOG STACKER OPERATOR Work Phone: [facility] 05-28-2023 10:50-0500 Heart rate 91 /min Oviedo Rivera MEDICAL AUDITOR.LOG STACKER OPERATOR Work Phone: [facility] 05-28-2023 10:50-0500 SaO2% (BldA) [Mass fraction] 93 % Mary Rivera MEDICAL AUDITOR.LOG STACKER OPERATOR Work Phone: [facility] 05-28-2023 10:50-0500 Systolic blood pressure 142 mm[Hg] Mary Rivera MEDICAL AUDITOR.LOG STACKER OPERATOR Work Phone: [facility] 03-03-2023 08:34-0500 Body height 165.[address] Madeline Mccarthy Work Phone: [facility] 03-03-2023 08:34-0500 Body mass index (BMI) [Ratio] 34.9 kg/m2 Dr. Madeline Mccarthy Work Phone: [facility] 03-03-2023 08:34-0500 Body temperature 98.7 [degF] Dr. Madeline Mccarthy Work Phone: [facility] 03-03-2023 08:34-0500 Body weight 95.[address] Madeline Mccarthy Work Phone: [facility] 03-03-2023 08:34-0500 Diastolic blood pressure 89 mm[Hg] Dr. Madeline Mccarthy Work Phone: [facility] 03-03-2023 08:34-0500 Heart rate 99 /min Dr. Madeline Mccarthy Work Phone: [facility] 03-03-2023 08:34-0500 Respiratory rate 16 /min Dr. Madeline Mccarthy Work Phone: [facility] 03-03-2023 08:34-0500 SaO2% (BldA) [Mass fraction] 95 % Dr. Madeline Mccarthy Work Phone: [facility] 03-03-2023 08:34-0500 Systolic blood pressure 142 mm[Hg] Dr. Madeline Mccarthy Work Phone: [facility] 11-26-2022 11:06-0400 Body height 164.5 cm Mary Rivera APRN.LOG STACKER OPERATOR Work Phone: [facility] 11-26-2022 11:06-0400 Body temperature 98.4 [degF] Mary Rivera APRN.LOG STACKER OPERATOR Work Phone: [facility] 11-26-2022 11:06-0400 Body weight 99.34 kg Mary Rivera MEDICAL AUDITOR.LOG STACKER OPERATOR Work Phone: [facility] 11-26-2022 11:06-0400 Diastolic blood pressure 89 mm[Hg] Oviedo Rivera MEDICAL AUDITOR.LOG STACKER OPERATOR Work Phone: [facility] 11-26-2022 11:06-0400 Heart rate 92 /min Mary Rivera MEDICAL AUDITOR.LOG STACKER OPERATOR Work Phone: [facility] 11-26-2022 11:06-0400 SaO2% (BldA) [Mass fraction] 96 % Mary Rivera MEDICAL AUDITOR.LOG STACKER OPERATOR Work Phone: [facility] 11-26-2022 11:06-0400 Systolic blood pressure 147 mm[Hg] Mary Rivera MEDICAL AUDITOR.LOG STACKER OPERATOR Work Phone: [facility] 11-24-2021 11:25-0400 Diastolic blood pressure 79 mm[Hg] Mary Rivera MEDICAL AUDITOR.LOG STACKER OPERATOR Work Phone: [facility] 11-24-2021 11:25-0400 Heart rate 81 /min Oviedo Rivera MEDICAL AUDITOR.LOG STACKER OPERATOR Work Phone: [facility] 11-24-2021 11:25-0400 Systolic blood pressure 140 mm[Hg] Mary Rivera MEDICAL AUDITOR.LOG STACKER OPERATOR Work Phone: [facility] 11-24-2021 10:49-0400 Body temperature 97.7 [degF] Oviedo Rivera MEDICAL AUDITOR.LOG STACKER OPERATOR Work Phone: [facility] 11-24-2021 10:49-0400 Body weight 92.99 kg Mary Rivera MEDICAL AUDITOR.LOG STACKER OPERATOR Work Phone: [facility] NEGATED: Highlighted [id number] 08:24-0400 BMI (Body Mass Index) 32.72 kg/m2 Eddie Franz AT [facility] Work Phone: NEGATED: Highlighted [id number] 08:24-0400 Body weight 91.63 kg Eddie Franz AT [facility] Work Phone: NEGATED: Highlighted [id number] 08:24-0400 Body weight 92 kg Eddie Franz AT [facility] Work Phone: NEGATED: Highlighted [id number] 08:24-0400 BP Diastolic 91 mm[Hg] Eddie Franz AT [facility] Work Phone: NEGATED: Highlighted [id number] 08:24-0400 BP Diastolic 97 mm[Hg] Eddie Franz AT [facility] Work Phone: NEGATED: Highlighted [id number] 08:24-0400 BP Systolic 156 mm[Hg] Eddie Osei AT [facility] Work Phone: NEGATED: Highlighted [id number] 08:24-0400 BP Systolic 155 mm[Hg] Eddie Franz AT [facility] Work Phone: NEGATED: Highlighted [id number] 08:24-0400 Heart rate 2+ Eddie Franz AT [facility] Work Phone: NEGATED: Highlighted [id number] 08:24-0400 Height 167.64 cm Eddie Franz AT [facility] Work Phone: NEGATED: Highlighted [id number] 08:24-0400 Height 168 cm Eddie Franz AT [facility] Work Phone: NEGATED: Highlighted [id number] 08:24-0400 Pulse (Heart Rate) 94 /min Eddie Franz AT [facility] Work Phone: Encounters Encounter Date Encounter Type Care Provider Facility Start: 02-01-2025 ambulatory Mario Owens ty:[facility] Start: 09-14-2024 End: 09-14-[address] Madeline Mccarthy MD Work Phone: [facility] Work Phone: Start: 09-14-2024 End: 09-14-2024 Patient encounter procedure Jesica Maza RETAIL LINK ANALYST-C -[facility] [place] Work Phone: Start: 09-14-2024 End: 09-14-2024 ambulatory Jesica Elkinschris Facility:[facility] Start: 06-18-2024 End: 06-18-[address] Madeline Mccarthy MD Work Phone: [facility] Work Phone: Start: 06-18-2024 End: 06-18-2024 Patient encounter procedure Jesica Maza RETAIL LINK ANALYST-C -Laboratory, [place] Work Phone: Start: 06-18-2024 End: 06-18-2024 ambulatory Jesica Elkinser Facility:[facility] Start: 04-10-2024 End: 04-10-2024 Patient encounter procedure Jesica Maza RETAIL LINK ANALYST-C -Laboratory, [place] Work Phone: Start: 04-10-2024 End: 04-10-2024 ambulatory Jesica Elkinser Facility:[facility] Start: 01-30-2024 End: 01-30-2024 ambulatory Mario Thomas Facility:[facility] Start: 12-16-2023 End: 12-16-2023 ambulatory MARY RIVERA Facility:[facility] Start: 12-16-2023 End: 12-16-2023 Follow-up encounter Mary Rivera APRN.LOG STACKER OPERATOR Work Phone: Hematology/Oncology Comment on above: Encounter for follow -up surveillance of breast cancer (Primary Dx); Personal history of breast cancer Start: 12-16-2023 End: 12-16-2023 Patient encounter procedure Mary Rivera APRN.LOG STACKER OPERATOR Work Phone: Hematology/Oncology Start: 07-31-2023 End: 07-31-2023 ambulatory [facility] Work Phone: Start: 07-31-2023 End: 07-31-2023 Patient encounter procedure [facility], [place] Work Phone: Start: 06-22-2023 End: 06-22-[address] Madeline Mccarthy Work Phone: [facility] Work Phone: Start: 06-22-2023 End: 06-22-[address] Madeline Mccarthy Work Phone: [facility]-Laboratory Work Phone: Start: 05-28-2023 End: 05-28-2023 ambulatory Mary Rivera MEDICAL AUDITOR.LOG STACKER OPERATOR Work Phone: Hematology/Oncology Comment on above: Malignant neoplasm o f upper-outer quadrant of right breast in female, estrogen receptor positive (HCC) (Primary Dx) Start: 05-28-2023 End: 05-28-2023 Patient encounter procedure Mary Rivera APRN.LOG STACKER OPERATOR Work Phone: [facility] Start: 03-27-2023 End: 03-27-[address] Madeline Mccarthy Work Phone: [facility] Work Phone: Start: 03-03-2023 End: 03-03-[address] Madeline Mccarthy Work Phone: [facility] Work Phone: Start: 01-28-2023 End: 01-28-2023 ambulatory [facility] Work Phone: Start: 01-28-2023 End: 01-28-2023 Patient encounter procedure [facility]-Outpatient [facility] Work Phone: Start: 01-04-2023 End: 01-04-2023 ambulatory [facility] Work Phone: Start: 01-04-2023 End: 01-04-2023 Patient encounter procedure [facility]-Cat Scan, [facility] Work Phone: Start: 12-04-2022 End: 12-04-2022 ambulatory [facility] Work Phone: Start: 12-04-2022 End: 12-04-2022 Patient encounter procedure [facility] Work Phone: Start: 11-26-2022 End: 11-26-2022 ambulatory Mary Rivera MEDICAL AUDITOR.LOG STACKER OPERATOR Work Phone: Hematology/Oncology Comment on above: Malignant neoplasm o f upper-outer quadrant of right breast in female, estrogen receptor positive (HCC) (Primary Dx) Start: 11-26-2022 End: 11-26-2022 Patient encounter procedure Oviedo Rivera MEDICAL AUDITOR.LOG STACKER OPERATOR Work Phone: [facility] Start: 11-08-2022 End: 11-08-2022 ambulatory [facility] Work Phone: Start: 11-08-2022 End: 11-08-2022 Patient encounter procedure [facility]-Cat Scan, [facility] Work Phone: Start: 09-24-2022 End: 09-24-2022 ambulatory [facility] Work Phone: Start: 09-24-2022 End: 09-24-2022 Patient encounter procedure [facility] Work Phone: Start: 06-26-2022 End: 06-26-2022 ambulatory [facility] Work Phone: Start: 06-26-2022 End: 06-26-2022 Patient encounter procedure [facility] Start: 03-19-2022 End: 03-19-2022 Patient encounter procedure [facility] Start: 01-25-2022 End: 01-25-2022 ambulatory [facility] Work Phone: Start: 01-25-2022 End: 01-25-2022 Patient encounter procedure [facility]patient [facility] Start: 12-19-2021 End: 12-19-2021 Patient encounter procedure [facility] Start: 11-24-2021 End: 11-24-2021 ambulatory Mary Rivera MEDICAL AUDITOR.LOG STACKER OPERATOR Work Phone: Hematology/Oncology Comment on above: Malignant neoplasm o f upper-outer quadrant of right breast in female, estrogen receptor positive (HCC) (Primary Dx) Start: 11-24-2021 End: 11-24-2021 Patient encounter procedure Mary Rivera MEDICAL AUDITOR.LOG STACKER OPERATOR Work Phone: [facility] Start: 10-17-2021 End: 10-17-2021 Patient encounter procedure [facility] Start: 07-10-2021 End: 07-10-2021 Patient encounter procedure [facility] Start: 06-26-2021 End: 06-26-2021 ambulatory Elenakehinde York PT Work Phone: [facility] Comment on above: Arm swelling (Primar y Dx); Malignant neoplasm of upper-outer quadrant of right breast in female, estrogen receptor positive (HCC) Start: 03-30-2021 Patient encounter procedure [facility] Start: 03-30-2021 End: 03-30-2021 Discharged Recurring [facility] Start: 12-29-2018 End: 12-29-2018 Patient encounter procedure Kayleigh Chavez MEDICAL AUDITOR-LOG STACKER OPERATOR Work Phone: [facility] Work Phone: Start: 12-29-2018 End: 12-29-2018 Pt evaluation Kayleigh Chavez MEDICAL AUDITOR-LOG STACKER OPERATOR Work Phone: [facility] Work Phone: Procedures Date Procedure Procedure Detail Performing Clinician Start: 09-14-[address] Madeline Mccarthy MD Work Phone: Comment on above: Follicular phase 0.1 - 0.9 Luteal phase 1.8 - 23.9 Ovulation phase 0.1 - 12.0 First trimester 11.0 - 44.3 Second trimester 25.4 - 83.3 Third trimester 58.7 - 214.0 Postmenopausal 0.0 - 0.1Performed at: [id number] [place], [place] [id number] Director: Mukul Wilkes PhD, Phone: [phone] Start: 06-18-2024 Dehydroepiandrostero ne sulfate level Dr. Madeline Mccarthy MD Work Phone: Comment on above: Performed at: [address] [id number] Director: Mukul Wilkes PhD, Phone: [phone] at: [address] [id number] Director: Nanette Sood MD, Phone: [phone] Start: 06-18-[address] Madeline Mccarthy MD Work Phone: Comment on above: Follicular phase 0.1 - 0.9 Luteal phase 1.8 - 23.9 Ovulation phase 0.1 - 12.0 First trimester 11.0 - 44.3 Second trimester 25.4 - 83.3 Third trimester 58.7 - 214.0 Postmenopausal 0.0 - 0.1Performed at: [facility] [employer] [id number] Director: Mukul Wilkes PhD, Phone: [phone] Start: 01-28-2023 Screening mammography Start: 01-04-2023 MRI of lower extremity Start: 11-08-2022 CT of face Start: 01-25-2022 Screening mammography Start: 12-27-2020 Adult depression scr eening assessment Elena York PT Work Phone: Start: 12-29-2018 End: 12-29-2018 Blood pressure outside of normal parameters - follow-up documented Kayleigh Chavez MEDICAL AUDITOR-LOG STACKER OPERATOR Work Phone: Start: 12-29-2018 End: 12-29-2018 BMI documented as above normal parameters - follow-up documented Kayleigh Chavez MEDICAL AUDITOR-LOG STACKER OPERATOR Work Phone: Start: 12-29-2018 End: 12-29-2018 Documentation of current medications Kayleigh Ольга Kathy MEDICAL AUDITOR-LOG STACKER OPERATOR Work Phone: Start: 12-29-2018 End: 12-29-2018 Pain assessment documented as positive - follow-up documented Kayleigh Rolon Kathy MEDICAL AUDITOR-LOG STACKER OPERATOR Work Phone: Start: 12-29-2018 End: 12-29-2018 Tobacco non-user Kayleigh Rolon Kathy MEDICAL AUDITOR-LOG STACKER OPERATOR Work Phone: H/O: surgery Hx of detached retina repair Comment on above: X4- Left eye 1979 H/O: surgery History of lumpectomy of right breast History of cataract extraction Hx of cataract extraction Comment on above: Bilateral History of tonsillectomy History of tonsillectomy and adenoidectomy NEGATED: Highlighted rowStart: 12-29-2018 End: 12-29-2018 Documentation of current medications Eddie Franz AT Plan of Treatment Date Care Activity Detail Author Start: 06-15-2024 End: 06-15-2024 ambulatory 06/15/2024 9:30 AM EDT Visit (SP) Office Hematology/Oncology [address] [place], [place] [id number] Mary Rivera APRN.CNP [address] [place] [address] 6 MTH OV* Hematology/Oncology Comment on above: 6 MTH OV* Start: 12-01-2023 Covid-19 Vaccine () Covid-19 Vaccine ( season) [facility] Start: 12-01-2023 Influenza vaccination Influenza Vaccine (#1) [facility] Start: 04-01-2023 Advance Directive Discussion Advance Directive Discussion [facility] Start: 04-01-2023 Depression Assessment Depression Assessment [facility] Start: 11-30-2022 Influenza vaccination [facility] Start: 2022 ADVANCE DIRECTIVE DISCUSSION ADVANCE DIRECTIVE DISCUSSION [facility] Start: 2022 BONE DENSITY BONE DENSITY [facility] Start: 2022 Pneumococcal Vaccine: 65+ (1 of 1 - PCV) Pneumococcal Vaccine: 65+ (1 of 1 - PCV) [facility] Start: 2022 PNEUMOCOCCAL: 65+ (1 - PCV) PNEUMOCOCCAL: 65+ (1 - PCV) [facility] Start: 2022 Screening for osteoporosis Bone Density Screening [facility] Start: 04-01-2022 DEPRESSION ASSESSMENT DEPRESSION ASSESSMENT [facility] Start: 12-27-2021 Adult depression screening assessment DEPRESSION SCREENING [facility] Start: 11-30-2021 Influenza vaccination INFLUENZA (#1) [facility] Start: 11-30-2020 Influenza vaccination INFLUENZA (#1) [facility] Start: 01-12-2019 End: 01-12-2019 Appointment Appointment [facility] Work Phone: Start: 12-29-2018 End: 12-29-2018 Appointment Appointment [facility] Work Phone: Start: 12-29-2018 End: 12-29-2018 Mri spinal canal lumbar w/o contrast material MRI lumbar without contrast [facility] Work Phone: Start: 12-29-2018 End: 12-29-2018 Radex spine lumbosacral 2/3 views XR LUMBAR 2 VWS FLEX/EXT [facility] Work Phone: Start: 2017 RSV Vaccine (1 - 1-dose 60+ series) RSV Vaccine (1 - 1-dose 60+ series) [facility] Start: 07-24-2007 SHINGRIX VACCINE (1 of 2) SHINGRIX VACCINE (1 of 2) [facility] Start: 2002 COLOGUARD (FIT-DNA) COLOGUARD (FIT-DNA) [facility] Start: 2002 Colonoscopy COLONOSCOPY [facility] Start: 2002 COLORECTAL CANCER SCREENING COLORECTAL CANCER SCREENING [facility] Start: [address] COLONOGRAPHY [facility] Start: 2002 DIABETES SCREEN DIABETES SCREEN [facility] Start: 2002 Diabetes Screening Diabetes Screening [facility] Start: 2002 FECAL OCCULT BLOOD FECAL OCCULT BLOOD [facility] Start: 2002 Lipid panel Lipid Screening [facility] Start: 2002 LIPID SCREEN LIPID SCREEN [facility] Start: 2002 Screening for malignant neoplasm of colon [facility] Start: 2002 SIGMOIDOSCOPY SIGMOIDOSCOPY [facility] Start: 1997 Mammography MAMMOGRAM [facility] Start: 1997 Screening for malignant neoplasm of breast Mammogram Screening [facility] Start: 07-24-1987 HPV TESTING HPV TESTING [facility] Start: 1978 PAP TESTING PAP TESTING [facility] Start: 1976 [facility] Start: 07-24-1975 Anxiety Screening Anxiety Screening [facility] Start: 07-24-1975 Depression Screening Depression Screening [facility] Start: 07-24-1975 HEPATITIS C SCREENING HEPATITIS C SCREENING [facility] Start: 07-24-1975 Hepatitis C screening Hepatitis C Screening [facility] Start: 07-24-1975 HIV SCREENING HIV SCREENING [facility] Start: 07-24-1975 HIV screening HIV Screening [facility] Start: 1962 COVID-19 VACCINE (1) COVID-19 VACCINE (1) [facility] Start: 01-22-1958 COVID-19 VACCINE (#1) COVID-19 VACCINE (#1) [facility] Dehydroepiandrostero ne sulfate (DHEA-S) [Mass/volume] in Serum or Plasma [facility] Patient Education \cps-[id number]\CPS_ PtEduca tion\htn.pdf [facility] [place] [facility] Work Phone: Serum testosterone measurement [facility] Testosterone Free [Mass/volume] in Serum or Plasma [facility] Testosterone measurement [facility] Immunizations Immunization Date Immunization Notes Care Provider Anton zheng 02-16-2008 influenza virus vacc ine, unspecified formulation Mary Rivera MEDICAL AUDITOR.LOG STACKER OPERATOR Work Phone: [facility] Payers Date Payer Category Payer Self-pay [id number] 2024 Unknown [id number] 2022 Unknown [employer]IC[employer] SUPPLEMENT [id number] 2022-Present [phone] [address] [place] [address] Indemnity [id number] 2022 Unknown [id number] 2022 Medicare MEDICARE MEDICAR E A AND B [id number] 2022-Present [phone] [place] [address] Medicare [id number] 2022 Medicare [id number] 2015 Unknown [id number] 2012 Private Health Insurance [facility] UMR CHOICE PLUS [id number] 2012-Present [phone] [address] [address] [place] [address] O [id number] 2012 Private Health Insurance [facility] UMR CHOICE PLUS [id number] 2012-Present [phone] [address] [address] [place] [address] O [id number] Unknown [id number] Unknown [id number] Unknown [id number] Unknown [id number] Unknown [id number] Social History Date Type Detail Facility Start: 01-12-2021 End: 03-03-2023 Assertion Unknown if ever smoked [facility] Work Phone: Start: 04-12-2020 End: 03-03-2023 Tobacco smoking status NHIS Never smoked tobacco [facility] Start: 06-01-2021 End: 12-16-2023 Alcohol intake Current non-drinker of alcohol (finding) [facility] Start: 1955 Sex Assigned At Female [facility] Start: 06-02-2021 End: 11-24-2021 Exposure to SARS-CoV-2 (event) Not sure [facility] Start: 03-24-2020 With Family [facility] Start: 03-24-2020 Non-smoker [facility] Start: 04-12-2020 Tobacco use and exposure Smokeless tobacco non-user [facility] Start: 12-27-2020 End: 11-26-2022 History of Social function [facility] Start: 12-27-2020 End: 11-26-2022 Tobacco use panel [facility] Adult Depression Screening Assessment 0 [facility] Start: 05-10-2020 Gender identity Identifies as female gender (finding) [facility] Start: 06-26-2024 Sex Female (finding) [facility] Medical Equipment Procedure Code Equipment Code Equipment Original Text Equipment Identifier Dates Total cholecystectomy with exploration of common bile duct Ligation clip, synthetic polymer, non-bioabsorbable [id number] FDA Start: 01-19-2021 Incision and drainage, abscess VIPNI 3GRM HEMOSTAT ABS FDA Start: 03-24-2020 Incision and drainage, abscess VIPIN 3GRM HEMOSTAT ABS FDA Start: 03-24-2020 Incision and drainage, abscess VIPIN 3GRM HEMOSTAT ABS FDA Start: 03-24-2020 Incision and drainage, abscess VIPIN 3GRM HEMOSTAT ABS FDA Start: 03-24-2020 Incision and drainage, abscess VIPIN 3GRM HEMOSTAT ABS FDA Start: 03-24-2020 Incision and drainage, abscess VIPIN 3GRM HEMOSTAT ABS FDA Start: 03-24-2020 Incision and drainage, abscess VIPIN 3GRM HEMOSTAT ABS FDA Start: 03-24-2020 Incision and drainage, abscess VIPIN 3GRM HEMOSTAT ABS FDA Start: 03-24-2020 Incision and drainage, abscess VIPIN 3GRM HEMOSTAT ABS FDA Start: 03-24-2020 Incision and drainage, abscess VIPIN 3GRM HEMOSTAT ABS FDA Start: 03-24-2020 Incision and drainage, abscess VIPIN 3GRM HEMOSTAT ABS FDA Start: 03-24-2020 Incision and drainage, abscess VIPIN 3GRM HEMOSTAT ABS FDA Start: 03-24-2020 SUTURE,LIGA CLIP MED LT200 FDA Start: 03-10-2020 SUTURE,LIGA CLIP MED LT200 FDA Start: 03-10-2020 SUTURE,LIGA CLIP MED LT200 FDA Start: 03-10-2020 SUTURE,LIGA CLIP MED LT200 FDA Start: 03-10-2020 SUTURE,LIGA CLIP SM LT-100 FDA Start: 03-10-2020 SUTURE,LIGA CLIP SM LT-100 FDA Start: 03-10-2020 SUTURE,LIGA CLIP SM LT-100 FDA Start: 03-10-2020 SUTURE,LIGA CLIP MED LT200 FDA Start: 03-10-2020 SUTURE,LIGA CLIP MED LT200 FDA Start: 03-10-2020 SUTURE,LIGA CLIP MED LT200 FDA Start: 03-10-2020 SUTURE,LIGA CLIP MED LT200 FDA Start: 03-10-2020 SUTURE,LIGA CLIP SM LT-100 FDA Start: 03-10-2020 SUTURE,LIGA CLIP SM LT-100 FDA Start: 03-10-2020 SUTURE,LIGA CLIP SM LT-100 FDA Start: 03-10-2020 SUTURE,LIGA CLIP MED LT200 FDA Start: 03-10-2020 SUTURE,LIGA CLIP MED LT200 FDA Start: 03-10-2020 SUTURE,LIGA CLIP MED LT200 FDA Start: 03-10-2020 SUTURE,LIGA CLIP MED LT200 FDA Start: 03-10-2020 SUTURE,LIGA CLIP SM LT-100 FDA Start: 03-10-2020 SUTURE,LIGA CLIP SM LT-100 FDA Start: 03-10-2020 SUTURE,LIGA CLIP SM LT-100 FDA Start: 03-10-2020 SUTURE,LIGA CLIP MED LT200 FDA Start: 03-10-2020 SUTURE,LIGA CLIP MED LT200 FDA Start: 03-10-2020 SUTURE,LIGA CLIP MED LT200 FDA Start: 03-10-2020 SUTURE,LIGA CLIP MED LT200 FDA Start: 03-10-2020 SUTURE,LIGA CLIP SM LT-100 FDA Start: 03-10-2020 SUTURE,LIGA CLIP SM LT-100 FDA Start: 03-10-2020 SUTURE,LIGA CLIP SM LT-100 FDA Start: 03-10-2020 SUTURE,LIGA CLIP MED LT200 FDA Start: 03-10-2020 SUTURE,LIGA CLIP MED LT200 FDA Start: 03-10-2020 SUTURE,LIGA CLIP MED LT200 FDA Start: 03-10-2020 SUTURE,LIGA CLIP MED LT200 FDA Start: 03-10-2020 SUTURE,LIGA CLIP SM LT-100 FDA Start: 03-10-2020 SUTURE,LIGA CLIP SM LT-100 FDA Start: 03-10-2020 SUTURE,LIGA CLIP SM LT-100 FDA Start: 03-10-2020 SUTURE,LIGA CLIP MED LT200 FDA Start: 03-10-2020 SUTURE,LIGA CLIP MED LT200 FDA Start: 03-10-2020 SUTURE,LIGA CLIP MED LT200 FDA Start: 03-10-2020 SUTURE,LIGA CLIP MED LT200 FDA Start: 03-10-2020 SUTURE,LIGA CLIP SM LT-100 FDA Start: 03-10-2020 SUTURE,LIGA CLIP SM LT-100 FDA Start: 03-10-2020 SUTURE,LIGA CLIP SM LT-100 FDA Start: 03-10-2020 SUTURE,LIGA CLIP MED LT200 FDA Start: 03-10-2020 SUTURE,LIGA CLIP MED LT200 FDA Start: 03-10-2020 SUTURE,LIGA CLIP MED LT200 FDA Start: 03-10-2020 SUTURE,LIGA CLIP MED LT200 FDA Start: 03-10-2020 SUTURE,LIGA CLIP SM LT-100 FDA Start: 03-10-2020 SUTURE,LIGA CLIP SM LT-100 FDA Start: 03-10-2020 SUTURE,LIGA CLIP SM LT-100 FDA Start: 03-10-2020 SUTURE,LIGA CLIP MED LT200 FDA Start: 03-10-2020 SUTURE,LIGA CLIP MED LT200 FDA Start: 03-10-2020 SUTURE,LIGA CLIP MED LT200 FDA Start: 03-10-2020 SUTURE,LIGA CLIP MED LT200 FDA Start: 03-10-2020 SUTURE,LIGA CLIP SM LT-100 FDA Start: 03-10-2020 SUTURE,LIGA CLIP SM LT-100 FDA Start: 03-10-2020 SUTURE,LIGA CLIP SM LT-100 FDA Start: 03-10-2020 SUTURE,LIGA CLIP MED LT200 FDA Start: 03-10-2020 SUTURE,LIGA CLIP MED LT200 FDA Start: 03-10-2020 SUTURE,LIGA CLIP MED LT200 FDA Start: 03-10-2020 SUTURE,LIGA CLIP MED LT200 FDA Start: 03-10-2020 SUTURE,LIGA CLIP SM LT-100 FDA Start: 03-10-2020 SUTURE,LIGA CLIP SM LT-100 FDA Start: 03-10-2020 SUTURE,LIGA CLIP SM LT-100 FDA Start: 03-10-2020 SUTURE,LIGA CLIP MED LT200 FDA Start: 03-10-2020 SUTURE,LIGA CLIP MED LT200 FDA Start: 03-10-2020 SUTURE,LIGA CLIP MED LT200 FDA Start: 03-10-2020 SUTURE,LIGA CLIP MED LT200 FDA Start: 03-10-2020 SUTURE,LIGA CLIP SM LT-100 FDA Start: 03-10-2020 SUTURE,LIGA CLIP SM LT-100 FDA Start: 03-10-2020 SUTURE,LIGA CLIP SM LT-100 FDA Start: 03-10-2020 SUTURE,LIGA CLIP MED LT200 FDA Start: 03-10-2020 SUTURE,LIGA CLIP MED LT200 FDA Start: 03-10-2020 SUTURE,LIGA CLIP MED LT200 FDA Start: 03-10-2020 SUTURE,LIGA CLIP MED LT200 FDA Start: 03-10-2020 SUTURE,LIGA CLIP SM LT-100 FDA Start: 03-10-2020 SUTURE,LIGA CLIP SM LT-100 FDA Start: 03-10-2020 SUTURE,LIGA CLIP SM LT-100 FDA Start: 03-10-2020 SUTURE,LIGA CLIP MED LT200 FDA Start: 03-10-2020 SUTURE,LIGA CLIP MED LT200 FDA Start: 03-10-2020 SUTURE,LIGA CLIP MED LT200 FDA Start: 03-10-2020 SUTURE,LIGA CLIP MED LT200 FDA Start: 03-10-2020 SUTURE,LIGA CLIP SM LT-100 FDA Start: 03-10-2020 SUTURE,LIGA CLIP SM LT-100 FDA Start: 03-10-2020 SUTURE,LIGA CLIP SM LT-100 [facility] Start: 03-10-2020 Clinical Notes 06-26-2021 to 12-16-2023 Mary Rivera APRN.LOG STACKER OPERATOR - 12/16/2023 9:44 AM Mary Stuart APRN.LOG STACKER OPERATOR - 05/28/2023 10:42 AM Mary Gonzales APRN.LOG STACKER OPERATOR - 11/26/2022 10:54 AM EDAdela York, PT - 06/26/2021 5:10 PM EDT Note Date & Type Note Facility 12-16-2023 Note HNO ID: [id number] Author: MARY RIVERA APRN.LOG STACKER OPERATOR Service: ? Author Type: Nurse Practitioner Type: Progress Notes Filed: 12/17/2023 09:46 Note Text: Chief Complaint Patient presents with: Established Patient HPI: Lai Gomez is a 68 year old female who presents here today for follow up breast cancer. Per Dr. Stuart's previous note: H/o hypertension and hypothyroidism. Patient had a bilateral screening mammogram on 02/03/2020. That study demonstrated a proximal focal area of architectural distortion in the upper outer aspect of the right breast. Additional views were obtained. Compression magnification views of the right breast were obtained on 02/10/2020. There was persistent architectural distortion noted in the upper lateral aspect of the right breast. Ultrasound demonstrated a 1 x 1.1 x 1 cm spiculated nodule at the 10 o'clock position of the breast 3 cm from the nipple. There was an incidental note of a 4 x 4 x 4 mm cyst adjacent to the spiculated nodule. Biopsy was recommended. Underwent ultrasound-guided right breast biopsy and biopsy of right axillary lymph node on 03/02/2020. Pathology: MICROSCOPIC DIAGNOSIS A. Right breast, core biopsy: Invasive ductal carcinoma with the following characteristics: Maximal length - 5 millimeters Nuclear grade - 1/3 Other finding- ductal carcinoma insitu, nuclear grade 1/3, focal. See comment. B. Right axillary tissue, core biopsy: Benign fibrofatty tissue and lymphoid tissue. See comment. MORPHOMETRIC ANALYSIS ER (clone 6F11) >95%, strong intensity RI (clone 16/1E2) >95%, strong intensity Her-2Neu (clone CB11) 1+ Underwent right partial mastectomy with right sentinel lymph node biopsy under stereotactic guided wire localization on 03/10/2020. Pathology: FROZEN SECTION DIAGNOSIS A. Right breast sentinel lymph node, biopsy: One lymph node, negative for metastatic carcinoma. B. Right breast sentinel lymph node, biopsy: One lymph node, negative for metastatic carcinoma. MICROSCOPIC DIAGNOSIS A. Right breast sentinel lymph node, biopsy: One lymph node, negative for metastatic carcinoma. Changes consistent with previous biopsy site. See comment. B. Right breast sentinel lymph node, biopsy: One lymph node, negative for metastatic carcinoma. See comment. C. Right breast mass, lumpectomy with needle localization: Invasive ductal carcinoma. Ductal carcinoma in situ. Fibrocystic changes, adenosis and intraductal hyperplasia with focal atypia. Changes consistent with previous biopsy site. D. New medial margin: Fibrocystic changes, adenosis and intraductal hyperplasia without atypia. Focal microcalcifications. Negative for carcinoma. SJ:william 03/15/20 COMMENT A AND B. The lymph nodes is negative for metastatic carcinoma on multiple H AND E levels and immunohisto-chemical stains for cytokeratins ([id number]). BREAST CANCER SUMMARY Procedure - excision (lumpectomy with needle localization) Specimen laterality - right Invasive tumor: Tumor site - central portion of right breast, as per clinical information. Tumor size - greatest dimension 1.2 cm Additional dimension - 0.8 x 0.8 cm. See comment below. Histologic type - invasive ductal carcinoma, not otherwise specified. Histologic grade ([place] grade): Glandular/tubular differentiation score - 1 Nuclear pleomorphism score - 2 Mitotic count score - 1 Overall grade - grade 1 (score of 4) Tumor focality - single focus of invasive carcinoma. Ductal Carcinoma In Situ - present Extent of intraductal component (EIC). Site (extent) of DCIS - DCIS comprise about 40% of the total tumor volume. Number of blocks with DCIS - 3 Number of blocks examined - 16 (specimen A AND B) Architectural pattern - cribriform Nuclear grade - 1-2 Necrosis - not identified Lobular carcinoma in situ - no lobular carcinoma in situ in the specimen. Tumor extension: Skin - not present Nipple - not applicable Skeletal muscle - no skeletal muscle is present. Margins - invasive carcinoma and ductal carcinoma in situ are 0.5 cm away from the closest lateral margin. Regional Lymph Nodes: Total number of lymph nodes examined - 2 Number of sentinel lymph nodes examined - 2 Number of lymph nodes with macrometastases, micrometastases and isolated tumor cells - 0 Treatment effect - no known presurgical therapy. Lymphvascular invasion - not identified Dermal lymphvascular invasion - not applicable Additional Pathologic Findings - fibrocystic changes, adenosis and intraductal hyperplasia with atypia. Changes consistent with previous biopsy site. Ancillary Studies: Previously performed on same tumor ([id number] / [id number]) ER: positive (>95%, strong intensity) RI: positive (>95%, strong intensity) Jam7sfs: negative (1+) Microcalcifications - present in ductal carcinoma in situ and non-neoplastic tissue. Clinical History - Please make reference (more content not included)... [facility] 12-16-2023 History of Present illness Narrative Chief Complaint Patient presents with: Established Patient HPI: Lai Gomez is a 68 year old female who presents here today for follow up breast cancer. Per Dr. Stuart's previous note: H/o hypertension and hypothyroidism. Patient had a bilateral screening mammogram on 02/03/2020. That study demonstrated a proximal focal area of architectural distortion in the upper outer aspect of the right breast. Additional views were obtained. Compression magnification views of the right breast were obtained on 02/10/2020. There was persistent architectural distortion noted in the upper lateral aspect of the right breast. Ultrasound demonstrated a 1 x 1.1 x 1 cm spiculated nodule at the 10 o'clock position of the breast 3 cm from the nipple. There was an incidental note of a 4 x 4 x 4 mm cyst adjacent to the spiculated nodule. Biopsy was recommended. Underwent ultrasound-guided right breast biopsy and biopsy of right axillary lymph node on 03/02/2020. Pathology: MICROSCOPIC DIAGNOSIS A. Right breast, core biopsy: Invasive ductal carcinoma with the following characteristics: Maximal length - 5 millimeters Nuclear grade - 1/3 Other finding- ductal carcinoma insitu, nuclear grade 1/3, focal. See comment. B. Right axillary tissue, core biopsy: Benign fibrofatty tissue and lymphoid tissue. See comment. MORPHOMETRIC ANALYSIS ER (clone 6F11) >95%, strong intensity RI (clone 16/1E2) >95%, strong intensity Her-2Neu (clone CB11) 1+ Underwent right partial mastectomy with right sentinel lymph node biopsy under stereotactic guided wire localization on 03/10/2020. Pathology: FROZEN SECTION DIAGNOSIS A. Right breast sentinel lymph node, biopsy: One lymph node, negative for metastatic carcinoma. B. Right breast sentinel lymph node, biopsy: One lymph node, negative for metastatic carcinoma. MICROSCOPIC DIAGNOSIS A. Right breast sentinel lymph node, biopsy: One lymph node, negative for metastatic carcinoma. Changes consistent with previous biopsy site. See comment. B. Right breast sentinel lymph node, biopsy: One lymph node, negative for metastatic carcinoma. See comment. C. Right breast mass, lumpectomy with needle localization: Invasive ductal carcinoma. Ductal carcinoma in situ. Fibrocystic changes, adenosis and intraductal hyperplasia with focal atypia. Changes consistent with previous biopsy site. D. New medial margin: Fibrocystic changes, adenosis and intraductal hyperplasia without atypia. Focal microcalcifications. Negative for carcinoma. SJ:william 03/15/20 COMMENT A & B. The lymph nodes is negative for metastatic carcinoma on multiple H & E levels and immunohisto-chemical stains for cytokeratins ([id number]). BREAST CANCER SUMMARY Procedure - excision (lumpectomy with needle localization) Specimen laterality - right Invasive tumor: Tumor site - central portion of right breast, as per clinical information. Tumor size - greatest dimension 1.2 cm Additional dimension - 0.8 x 0.8 cm. See comment below. Histologic type - invasive ductal carcinoma, not otherwise specified. Histologic grade ([place] grade): Glandular/tubular differentiation score - 1 Nuclear pleomorphism score - 2 Mitotic count score - 1 Overall grade - grade 1 (score of 4) Tumor focality - single focus of invasive carcinoma. Ductal Carcinoma In Situ - present Extent of intraductal component (EIC). Site (extent) of DCIS - DCIS comprise about 40% of the total tumor volume. Number of blocks with DCIS - 3 Number of blocks examined - 16 (specimen A & B) Architectural pattern - cribriform Nuclear grade - 1-2 Necrosis - not identified Lobular carcinoma in situ - no lobular carcinoma in situ in the specimen. Tumor extension: Skin - not present Nipple - not applicable Skeletal muscle - no skeletal muscle is present. Margins - invasive carcinoma and ductal carcinoma in situ are 0.5 cm away from the closest lateral margin. Regional Lymph Nodes: Total number of lymph nodes examined - 2 Number of sentinel lymph nodes examined - 2 Number of lymph nodes with macrometastases, micrometastases and isolated tumor cells - 0 Treatment effect - no known presurgical therapy. Lymphvascular invasion - not identified Dermal lymphvascular invasion - not applicable Additional Pathologic Findings - fibrocystic changes, adenosis and intraductal hyperplasia with atypia. Changes consistent with previous biopsy site. Ancillary Studies: Previously performed on same tumor ([id number] / [id number]) ER: positive (>95%, strong intensity) RI: positive (>95%, strong intensity) [id number]: negative (1+) Microcalcifications - present in ductal carcinoma in situ and non-neoplastic tissue. Clinical History - Please make reference to previous specimen ([id number]) right breast, core biopsy with diagnosis of invasive ductal carcinoma and right axillary tissue, core biopsy with diagnosis of benign fibrofatty tissue and lymphoid tissue. Radiologic findings - abnormal right mammogram Pathologic Stage: pT1c pN0(sn) pMx Patient had a postoperative hematoma managed in the ED initially with Gelfoam. When removed 03/24 bled and required urgent surgery with cauterization. Oncotype DX recurrence score 16 indicating 4% risk of distant recurrence at 9 years. No benefit from adjuvant chemotherapy. RADIATION:05/11/20 - 06/07/20 Previous therapy:Arimidex Began after radiation. Stopped June 2020. Pt. followed by Dr. Tam/[facility]AT[facility] SPECIALIST in [place]. Pt. did not tolerate oral arimidex. [facility]IST ordered a hormone inhibitor pellets inserted vaginally. Pt. stopped using vaginal pellets in October 2020. Restarted pellets in 2021. R total knee replacement 2022. No complications. No new concerns today. Appetite:Too good. Energy level:Poor, but I'm due for my pellets this week. Denies fevers or recent illness. Resp:denies cough or sob Cardiac:denies chest pain/palpitations GI:denies abd pain, n/v, moving bowels regularly, h/o IBS :denies dysuria/hematuria Extrem:chronic b/l knee pain, denies pain elsewhere Endo:denies hot flashes Neuro:denies symptoms of neuropathy Skin:denies rashes/lesions Heme:denies bleeding The ROS is otherwise negative. Past medical history, appointments, medications, allergies reviewed. No changes. EXAM: BP 161/86 Pulse 77 Temp 36.4 C (97.5 F) (Temporal) Wt 96.3 kg (212 lb 4.9 oz) SpO2 96% BMI 35.60 kg/m APPEARANCE Well appearing, alert, in no acute distress, well-hydrated, well nourished. HEART RRR with normal S1 and S2, no murmurs LUNG clear to auscultation BREAST FEMALE no mass/nodule b/l, scar to R upper/outer/radiation changes LYMPH NODES No cervical lymphadenopathy, No supraclavicular lymphadenopathy, and No axillary lymphadenopathy. ABDOMEN bowel sounds normoactive, soft, non-tender EXTREMITIES No edema NEURO Awake, alert and oriented x 3, Normal gait, and No involuntary motions. SKIN Skin color, texture, turgor normal, no suspicious rashes or lesions ASSESSMENT/PLAN: 1. Encounter for follow-up surveillance of breast cancer - ICD9: V67.9, V10.3, ICD10: Z08, Z85.3 (primary diagnosis) 2. Personal history of breast cancer - ICD9: V10.3, ICD10: Z85.3 pT1c pN0(sln) M0 ER/RI positive, HER2 negative stage IA invasive ductal carcinoma of the right breast. - No new concerning findings on exam. - Pt. did not tolerate arimidex and declined further therapy. - [facility]IST ordered anastrozole vaginal pellets. Previously discussed this with Dr. Stuart. Advised pt. again that we do not recommend this as it is not in NCCN guidelines. We recommend trying another AI-pt. declined. - Mammogram due in 2023-[facility]IST orders. Pt. has this done at [facility]. - Follow up in 6 months. - Pt. aware to call office with any questions/concerns. The sensitive examination was discussed with the Patient or Patient's Authorized Final Touch Up Painter. As applicable, any other physician, advance practice provider, medical student, or other health professional student that will be observing or involved in the sensitive examination for educational or training purposes was discussed with the Patient or Authorized Final Touch Up Painter. The Patient or Authorized Final Touch Up Painter has agreed to proceed with the sensitive examination. (Sensitive examination includes inspection and/or palpation of the breasts, pelvis, prostate and anorectal regions) The patient indicates understanding of these issues and agrees with the plan. All documentation from previous visit of 05/28/23-Dr. Stuart/myself was copied and pasted, documentation has been reviewed and edited as necessary for today's visit. Mary Rivera APRN.CNP documented in this encounter [facility] 05-28-2023 Note HNO ID: [id number] Author: MARY RIVERA APRN.CNP Service: ? Author Type: Nurse Practitioner Type: Progress Notes Filed: 05/28/2023 11:37 Note Text: Chief Complaint Patient presents with: Established Patient HPI: Lai Gomez is a 67 year old female who presents here today for follow up breast cancer. Per Dr. Stuart's previous note: H/o hypertension and hypothyroidism. Patient had a bilateral screening mammogram on 02/03/2020. That study demonstrated a proximal focal area of architectural distortion in the upper outer aspect of the right breast. Additional views were obtained. Compression magnification views of the right breast were obtained on 02/10/2020. There was persistent architectural distortion noted in the upper lateral aspect of the right breast. Ultrasound demonstrated a 1 x 1.1 x 1 cm spiculated nodule at the 10 o'clock position of the breast 3 cm from the nipple. There was an incidental note of a 4 x 4 x 4 mm cyst adjacent to the spiculated nodule. Biopsy was recommended. Underwent ultrasound-guided right breast biopsy and biopsy of right axillary lymph node on 03/02/2020. Pathology: MICROSCOPIC DIAGNOSIS A. Right breast, core biopsy: Invasive ductal carcinoma with the following characteristics: Maximal length - 5 millimeters Nuclear grade - 1/3 Other finding- ductal carcinoma insitu, nuclear grade 1/3, focal. See comment. B. Right axillary tissue, core biopsy: Benign fibrofatty tissue and lymphoid tissue. See comment. MORPHOMETRIC ANALYSIS ER (clone 6F11) >95%, strong intensity RI (clone 16/1E2) >95%, strong intensity Her-2Neu (clone CB11) 1+ Underwent right partial mastectomy with right sentinel lymph node biopsy under stereotactic guided wire localization on 03/10/2020. Pathology: FROZEN SECTION DIAGNOSIS A. Right breast sentinel lymph node, biopsy: One lymph node, negative for metastatic carcinoma. B. Right breast sentinel lymph node, biopsy: One lymph node, negative for metastatic carcinoma. MICROSCOPIC DIAGNOSIS A. Right breast sentinel lymph node, biopsy: One lymph node, negative for metastatic carcinoma. Changes consistent with previous biopsy site. See comment. B. Right breast sentinel lymph node, biopsy: One lymph node, negative for metastatic carcinoma. See comment. C. Right breast mass, lumpectomy with needle localization: Invasive ductal carcinoma. Ductal carcinoma in situ. Fibrocystic changes, adenosis and intraductal hyperplasia with focal atypia. Changes consistent with previous biopsy site. D. New medial margin: Fibrocystic changes, adenosis and intraductal hyperplasia without atypia. Focal microcalcifications. Negative for carcinoma. SJ:william 03/15/20 COMMENT A AND B. The lymph nodes is negative for metastatic carcinoma on multiple H AND E levels and immunohisto-chemical stains for cytokeratins ([id number]). BREAST CANCER SUMMARY Procedure - excision (lumpectomy with needle localization) Specimen laterality - right Invasive tumor: Tumor site - central portion of right breast, as per clinical information. Tumor size - greatest dimension 1.2 cm Additional dimension - 0.8 x 0.8 cm. See comment below. Histologic type - invasive ductal carcinoma, not otherwise specified. Histologic grade ([place] grade): Glandular/tubular differentiation score - 1 Nuclear pleomorphism score - 2 Mitotic count score - 1 Overall grade - grade 1 (score of 4) Tumor focality - single focus of invasive carcinoma. Ductal Carcinoma In Situ - present Extent of intraductal component (EIC). Site (extent) of DCIS - DCIS comprise about 40% of the total tumor volume. Number of blocks with DCIS - 3 Number of blocks examined - 16 (specimen A AND B) Architectural pattern - cribriform Nuclear grade - 1-2 Necrosis - not identified Lobular carcinoma in situ - no lobular carcinoma in situ in the specimen. Tumor extension: Skin - not present Nipple - not applicable Skeletal muscle - no skeletal muscle is present. Margins - invasive carcinoma and ductal carcinoma in situ are 0.5 cm away from the closest lateral margin. Regional Lymph Nodes: Total number of lymph nodes examined - 2 Number of sentinel lymph nodes examined - 2 Number of lymph nodes with macrometastases, micrometastases and isolated tumor cells - 0 Treatment effect - no known presurgical therapy. Lymphvascular invasion - not identified Dermal lymphvascular invasion - not applicable Additional Pathologic Findings - fibrocystic changes, adenosis and intraductal hyperplasia with atypia. Changes consistent with previous biopsy site. Ancillary Studies: Previously performed on same tumor ([id number] / [id number]) ER: positive (>95%, strong intensity) RI: positive (>95%, strong intensity) [id number]: negative (1+) Microcalcifications - present in ductal carcinoma in situ and non-neoplastic tissue. Clinical History - Please make reference (more content not included)... [facility] 05-28-2023 History of Present illness Narrative Chief Complaint Patient presents with: Established Patient HPI: Lai Gomez is a 67 year old female who presents here today for follow up breast cancer. Per Dr. Stuart's previous note: H/o hypertension and hypothyroidism. Patient had a bilateral screening mammogram on 02/03/2020. That study demonstrated a proximal focal area of architectural distortion in the upper outer aspect of the right breast. Additional views were obtained. Compression magnification views of the right breast were obtained on 02/10/2020. There was persistent architectural distortion noted in the upper lateral aspect of the right breast. Ultrasound demonstrated a 1 x 1.1 x 1 cm spiculated nodule at the 10 o'clock position of the breast 3 cm from the nipple. There was an incidental note of a 4 x 4 x 4 mm cyst adjacent to the spiculated nodule. Biopsy was recommended. Underwent ultrasound-guided right breast biopsy and biopsy of right axillary lymph node on 03/02/2020. Pathology: MICROSCOPIC DIAGNOSIS A. Right breast, core biopsy: Invasive ductal carcinoma with the following characteristics: Maximal length - 5 millimeters Nuclear grade - 1/3 Other finding- ductal carcinoma insitu, nuclear grade 1/3, focal. See comment. B. Right axillary tissue, core biopsy: Benign fibrofatty tissue and lymphoid tissue. See comment. MORPHOMETRIC ANALYSIS ER (clone 6F11) >95%, strong intensity RI (clone 16/1E2) >95%, strong intensity Her-2Neu (clone CB11) 1+ Underwent right partial mastectomy with right sentinel lymph node biopsy under stereotactic guided wire localization on 03/10/2020. Pathology: FROZEN SECTION DIAGNOSIS A. Right breast sentinel lymph node, biopsy: One lymph node, negative for metastatic carcinoma. B. Right breast sentinel lymph node, biopsy: One lymph node, negative for metastatic carcinoma. MICROSCOPIC DIAGNOSIS A. Right breast sentinel lymph node, biopsy: One lymph node, negative for metastatic carcinoma. Changes consistent with previous biopsy site. See comment. B. Right breast sentinel lymph node, biopsy: One lymph node, negative for metastatic carcinoma. See comment. C. Right breast mass, lumpectomy with needle localization: Invasive ductal carcinoma. Ductal carcinoma in situ. Fibrocystic changes, adenosis and intraductal hyperplasia with focal atypia. Changes consistent with previous biopsy site. D. New medial margin: Fibrocystic changes, adenosis and intraductal hyperplasia without atypia. Focal microcalcifications. Negative for carcinoma. SJ:william 03/15/20 COMMENT A & B. The lymph nodes is negative for metastatic carcinoma on multiple H & E levels and immunohisto-chemical stains for cytokeratins ([id number]). BREAST CANCER SUMMARY Procedure - excision (lumpectomy with needle localization) Specimen laterality - right Invasive tumor: Tumor site - central portion of right breast, as per clinical information. Tumor size - greatest dimension 1.2 cm Additional dimension - 0.8 x 0.8 cm. See comment below. Histologic type - invasive ductal carcinoma, not otherwise specified. Histologic grade ([place] grade): Glandular/tubular differentiation score - 1 Nuclear pleomorphism score - 2 Mitotic count score - 1 Overall grade - grade 1 (score of 4) Tumor focality - single focus of invasive carcinoma. Ductal Carcinoma In Situ - present Extent of intraductal component (EIC). Site (extent) of DCIS - DCIS comprise about 40% of the total tumor volume. Number of blocks with DCIS - 3 Number of blocks examined - 16 (specimen A & B) Architectural pattern - cribriform Nuclear grade - 1-2 Necrosis - not identified Lobular carcinoma in situ - no lobular carcinoma in situ in the specimen. Tumor extension: Skin - not present Nipple - not applicable Skeletal muscle - no skeletal muscle is present. Margins - invasive carcinoma and ductal carcinoma in situ are 0.5 cm away from the closest lateral margin. Regional Lymph Nodes: Total number of lymph nodes examined - 2 Number of sentinel lymph nodes examined - 2 Number of lymph nodes with macrometastases, micrometastases and isolated tumor cells - 0 Treatment effect - no known presurgical therapy. Lymphvascular invasion - not identified Dermal lymphvascular invasion - not applicable Additional Pathologic Findings - fibrocystic changes, adenosis and intraductal hyperplasia with atypia. Changes consistent with previous biopsy site. Ancillary Studies: Previously performed on same tumor ([id number] / [id number]) ER: positive (>95%, strong intensity) RI: positive (>95%, strong intensity) Bgn7iyx: negative (1+) Microcalcifications - present in ductal carcinoma in situ and non-neoplastic tissue. Clinical History - Please make reference to previous specimen ([id number]) right breast, core biopsy with diagnosis of invasive ductal carcinoma and right axillary tissue, core biopsy with diagnosis of benign fibrofatty tissue and lymphoid tissue. Radiologic findings - abnormal right mammogram Pathologic Stage: pT1c pN0(sn) pMx Patient had a postoperative hematoma managed in the ED initially with Gelfoam. When removed 03/24 bled and required urgent surgery with cauterization. Oncotype DX recurrence score 16 indicating 4% risk of distant recurrence at 9 years. No benefit from adjuvant chemotherapy. RADIATION:05/11/20 - 06/07/20 Previous therapy:Arimidex Began after radiation. Stopped June 2020. Pt. followed by Dr. Tam/[facility] in [place]. Pt. did not tolerate oral arimidex. CREATIVE SPECIALIST ordered a hormone inhibitor pellets inserted vaginally. Pt. stopped using vaginal pellets in October 2020. Restarted pellets in 2021. No new concerns today. R total knee replacement 2022. No complications. Appetite:Ok. Energy level:With surgery I haven't got back to walking yet. Denies fevers or recent illness. Resp:denies cough or sob Cardiac:denies chest pain/palpitations GI:denies abd pain, n/v, moving bowels regularly, h/o IBS :denies dysuria/hematuria Extrem:denies pain, R breast ache not consistent. Endo:denies hot flashes Neuro:denies symptoms of neuropathy Skin:denies rashes/lesions Heme:denies bleeding The ROS is otherwise negative. Past medical history, appointments, medications, allergies reviewed. No changes. EXAM: BP 142/89 Pulse 91 Temp 37.3 C (99.2 F) (Temporal) Wt 95.8 kg (211 lb 3.2 oz) SpO2 93% BMI 35.42 kg/m APPEARANCE Well appearing, alert, in no acute distress, well-hydrated, well nourished. HEART RRR with normal S1 and S2, no murmurs LUNG clear to auscultation BREAST FEMALE no mass/nodule b/l, scar to R upper/outer/radiation changes LYMPH NODES No cervical lymphadenopathy, No supraclavicular lymphadenopathy, and No axillary lymphadenopathy. ABDOMEN bowel sounds normoactive, soft, non-tender EXTREMITIES No edema NEURO Awake, alert and oriented x 3, Normal gait, and No involuntary motions. SKIN Skin color, texture, turgor normal, no suspicious rashes or lesions ASSESSMENT/PLAN: 1. Malignant neoplasm of upper-outer quadrant of right breast in female, estrogen receptor positive (HCC) - ICD9: 174.4, V86.0, ICD10: C50.411, Z17.0 pT1c pN0(sln) M0 ER/RI positive, HER2 negative stage IA invasive ductal carcinoma of the right breast. - No new concerning findings on exam. - Pt. did not tolerate arimidex and declined further therapy. - CREATIVE SPECIALIST ordered anastrozole vaginal pellets. Previously discussed this with Dr. Stuart. Advised pt. again that we do not recommend this as it is not in NCCN guidelines. We recommend trying another AI-pt. declined. - Mammogram due in 2023-[facility] SPECIALIST orders. Pt. has this done at [facility]. - Follow up in 6 months. - Pt. aware to call office with any questions/concerns. The patient indicates understanding of these issues and agrees with the plan. All documentation from previous visit of 05/28 & 11/26/22-Dr. Stuart/myself was copied and pasted, documentation has been reviewed and edited as necessary for today's visit. Mary Rivera APRN.SUSAN documented in this encounter [facility] 11-26-2022 History of Present illness Narrative Chief Complaint Patient presents with: Established Patient HPI: Lai Gomez is a 67 year old female who presents here today for follow up breast cancer. Per Dr. Stuart's previous note: H/o hypertension and hypothyroidism. Patient had a bilateral screening mammogram on 02/03/2020. That study demonstrated a proximal focal area of architectural distortion in the upper outer aspect of the right breast. Additional views were obtained. Compression magnification views of the right breast were obtained on 02/10/2020. There was persistent architectural distortion noted in the upper lateral aspect of the right breast. Ultrasound demonstrated a 1 x 1.1 x 1 cm spiculated nodule at the 10 o'clock position of the breast 3 cm from the nipple. There was an incidental note of a 4 x 4 x 4 mm cyst adjacent to the spiculated nodule. Biopsy was recommended. Underwent ultrasound-guided right breast biopsy and biopsy of right axillary lymph node on 03/02/2020. Pathology: MICROSCOPIC DIAGNOSIS A. Right breast, core biopsy: Invasive ductal carcinoma with the following characteristics: Maximal length - 5 millimeters Nuclear grade - 1/3 Other finding- ductal carcinoma insitu, nuclear grade 1/3, focal. See comment. B. Right axillary tissue, core biopsy: Benign fibrofatty tissue and lymphoid tissue. See comment. MORPHOMETRIC ANALYSIS ER (clone 6F11) >95%, strong intensity RI (clone 16/1E2) >95%, strong intensity Her-2Neu (clone CB11) 1+ Underwent right partial mastectomy with right sentinel lymph node biopsy under stereotactic guided wire localization on 03/10/2020. Pathology: FROZEN SECTION DIAGNOSIS A. Right breast sentinel lymph node, biopsy: One lymph node, negative for metastatic carcinoma. B. Right breast sentinel lymph node, biopsy: One lymph node, negative for metastatic carcinoma. MICROSCOPIC DIAGNOSIS A. Right breast sentinel lymph node, biopsy: One lymph node, negative for metastatic carcinoma. Changes consistent with previous biopsy site. See comment. B. Right breast sentinel lymph node, biopsy: One lymph node, negative for metastatic carcinoma. See comment. C. Right breast mass, lumpectomy with needle localization: Invasive ductal carcinoma. Ductal carcinoma in situ. Fibrocystic changes, adenosis and intraductal hyperplasia with focal atypia. Changes consistent with previous biopsy site. D. New medial margin: Fibrocystic changes, adenosis and intraductal hyperplasia without atypia. Focal microcalcifications. Negative for carcinoma. SJ:william 03/15/20 COMMENT A & B. The lymph nodes is negative for metastatic carcinoma on multiple H & E levels and immunohisto-chemical stains for cytokeratins ([id number]). BREAST CANCER SUMMARY Procedure - excision (lumpectomy with needle localization) Specimen laterality - right Invasive tumor: Tumor site - central portion of right breast, as per clinical information. Tumor size - greatest dimension 1.2 cm Additional dimension - 0.8 x 0.8 cm. See comment below. Histologic type - invasive ductal carcinoma, not otherwise specified. Histologic grade ([place] grade): Glandular/tubular differentiation score - 1 Nuclear pleomorphism score - 2 Mitotic count score - 1 Overall grade - grade 1 (score of 4) Tumor focality - single focus of invasive carcinoma. Ductal Carcinoma In Situ - present Extent of intraductal component (EIC). Site (extent) of DCIS - DCIS comprise about 40% of the total tumor volume. Number of blocks with DCIS - 3 Number of blocks examined - 16 (specimen A & B) Architectural pattern - cribriform Nuclear grade - 1-2 Necrosis - not identified Lobular carcinoma in situ - no lobular carcinoma in situ in the specimen. Tumor extension: Skin - not present Nipple - not applicable Skeletal muscle - no skeletal muscle is present. Margins - invasive carcinoma and ductal carcinoma in situ are 0.5 cm away from the closest lateral margin. Regional Lymph Nodes: Total number of lymph nodes examined - 2 Number of sentinel lymph nodes examined - 2 Number of lymph nodes with macrometastases, micrometastases and isolated tumor cells - 0 Treatment effect - no known presurgical therapy. Lymphvascular invasion - not identified Dermal lymphvascular invasion - not applicable Additional Pathologic Findings - fibrocystic changes, adenosis and intraductal hyperplasia with atypia. Changes consistent with previous biopsy site. Ancillary Studies: Previously performed on same tumor ([id number] / [id number]) ER: positive (>95%, strong intensity) RI: positive (>95%, strong intensity) Tbw1hmt: negative (1+) Microcalcifications - present in ductal carcinoma in situ and non-neoplastic tissue. Clinical History - Please make reference to previous specimen ([id number]) right breast, core biopsy with diagnosis of invasive ductal carcinoma and right axillary tissue, core biopsy with diagnosis of benign fibrofatty tissue and lymphoid tissue. Radiologic findings - abnormal right mammogram Pathologic Stage: pT1c pN0(sn) pMx Patient had a postoperative hematoma managed in the ED initially with Gelfoam. When removed 03/24 bled and required urgent surgery with cauterization. Oncotype DX recurrence score 16 indicating 4% risk of distant recurrence at 9 years. No benefit from adjuvant chemotherapy. RADIATION:05/11/20 - 06/07/20 Previous therapy:Arimidex Began after radiation. Stopped June 2020. Pt. followed by Dr. Tam/[facility] in [place]. Pt. did not tolerate oral arimidex. CREATIVE SPECIALIST ordered a hormone inhibitor pellets inserted vaginally. Pt. stopped using vaginal pellets in October 2020. Restarted pellets in 2021. No new concerns today. Appetite:Really good. Energy level:Good. Denies fevers or recent illness. Resp:denies cough or sob Cardiac:denies chest pain/palpitations GI:denies abd pain, n/v, moving bowels regularly, h/o IBS :denies dysuria/hematuria Extrem:chronic knee pain-followed by chiro/Ortho and chronic joint aches Endo:denies hot flashes Neuro:denies symptoms of neuropathy Skin:denies rashes/lesions Heme:denies bleeding The ROS is otherwise negative. Past medical history, appointments, medications, allergies reviewed. No changes. EXAM: BP 147/89 Pulse 92 Temp 36.9 C (98.4 F) (Temporal) Ht 164.5 cm (5' 4.75) Wt 99.3 kg (219 lb) SpO2 96% BMI 36.73 kg/m APPEARANCE Well appearing, alert, in no acute distress, well-hydrated, well nourished. HEART RRR with normal S1 and S2, no murmurs LUNG clear to auscultation BREAST FEMALE no mass/nodule b/l, R scar upper/outer LYMPH NODES No cervical lymphadenopathy, No supraclavicular lymphadenopathy, and No axillary lymphadenopathy. ABDOMEN bowel sounds normoactive, soft, non-tender EXTREMITIES No edema NEURO Awake, alert and oriented x 3, Normal gait, and No involuntary motions. SKIN Skin color, texture, turgor normal, no suspicious rashes or lesions ASSESSMENT/PLAN: 1. Malignant neoplasm of upper-outer quadrant of right breast in female, estrogen receptor positive (HCC) - ICD9: 174.4, V86.0, ICD10: C50.411, Z17.0 pT1c pN0(sln) M0 ER/RI positive, HER2 negative stage IA invasive ductal carcinoma of the right breast. - No new concerning findings on exam. - Pt. did not tolerate arimidex and declined further therapy. - CREATIVE SPECIALIST ordered anastrozole vaginal pellets. Previously discussed this with Dr. Stuart. Advised pt. again that we do not recommend this as it is not in NCCN guidelines. We recommend trying another AI-pt. declined. - Pt. will be three years out from surgery this March. - Mammogram due in 2022-[facility] SPECIALIST orders. - Follow up in 6 months. - Pt. aware to call office with any questions/concerns. The patient indicates understanding of these issues and agrees with the plan. All documentation from previous visit of 05/28/22-Dr. Stuart/myself was copied and pasted, documentation has been reviewed and edited as necessary for today's visit. Mary Rivera APRN.LOG STACKER OPERATOR documented in this encounter [facility] 11-24-2021 History of Present illness Narrative Chief Complaint Patient presents with: Established Patient HPI: Lai Gomez is a 66 year old female who presents here today for follow up breast cancer. Per Dr. Stuart's previous note: H/o hypertension and hypothyroidism. Patient had a bilateral screening mammogram on 02/03/2020. That study demonstrated a proximal focal area of architectural distortion in the upper outer aspect of the right breast. Additional views were obtained. Compression magnification views of the right breast were obtained on 02/10/2020. There was persistent architectural distortion noted in the upper lateral aspect of the right breast. Ultrasound demonstrated a 1 x 1.1 x 1 cm spiculated nodule at the 10 o'clock position of the breast 3 cm from the nipple. There was an incidental note of a 4 x 4 x 4 mm cyst adjacent to the spiculated nodule. Biopsy was recommended. Underwent ultrasound-guided right breast biopsy and biopsy of right axillary lymph node on 03/02/2020. Pathology: MICROSCOPIC DIAGNOSIS A. Right breast, core biopsy: Invasive ductal carcinoma with the following characteristics: Maximal length - 5 millimeters Nuclear grade - 1/3 Other finding- ductal carcinoma insitu, nuclear grade 1/3, focal. See comment. B. Right axillary tissue, core biopsy: Benign fibrofatty tissue and lymphoid tissue. See comment. MORPHOMETRIC ANALYSIS ER (clone 6F11) >95%, strong intensity RI (clone 16/1E2) >95%, strong intensity Her-2Neu (clone CB11) 1+ Underwent right partial mastectomy with right sentinel lymph node biopsy under stereotactic guided wire localization on 03/10/2020. Pathology: FROZEN SECTION DIAGNOSIS A. Right breast sentinel lymph node, biopsy: One lymph node, negative for metastatic carcinoma. B. Right breast sentinel lymph node, biopsy: One lymph node, negative for metastatic carcinoma. MICROSCOPIC DIAGNOSIS A. Right breast sentinel lymph node, biopsy: One lymph node, negative for metastatic carcinoma. Changes consistent with previous biopsy site. See comment. B. Right breast sentinel lymph node, biopsy: One lymph node, negative for metastatic carcinoma. See comment. C. Right breast mass, lumpectomy with needle localization: Invasive ductal carcinoma. Ductal carcinoma in situ. Fibrocystic changes, adenosis and intraductal hyperplasia with focal atypia. Changes consistent with previous biopsy site. D. New medial margin: Fibrocystic changes, adenosis and intraductal hyperplasia without atypia. Focal microcalcifications. Negative for carcinoma. SJ:william 03/15/20 COMMENT A & B. The lymph nodes is negative for metastatic carcinoma on multiple H & E levels and immunohisto-chemical stains for cytokeratins ([id number]). BREAST CANCER SUMMARY Procedure - excision (lumpectomy with needle localization) Specimen laterality - right Invasive tumor: Tumor site - central portion of right breast, as per clinical information. Tumor size - greatest dimension 1.2 cm Additional dimension - 0.8 x 0.8 cm. See comment below. Histologic type - invasive ductal carcinoma, not otherwise specified. Histologic grade ([place] grade): Glandular/tubular differentiation score - 1 Nuclear pleomorphism score - 2 Mitotic count score - 1 Overall grade - grade 1 (score of 4) Tumor focality - single focus of invasive carcinoma. Ductal Carcinoma In Situ - present Extent of intraductal component (EIC). Site (extent) of DCIS - DCIS comprise about 40% of the total tumor volume. Number of blocks with DCIS - 3 Number of blocks examined - 16 (specimen A & B) Architectural pattern - cribriform Nuclear grade - 1-2 Necrosis - not identified Lobular carcinoma in situ - no lobular carcinoma in situ in the specimen. Tumor extension: Skin - not present Nipple - not applicable Skeletal muscle - no skeletal muscle is present. Margins - invasive carcinoma and ductal carcinoma in situ are 0.5 cm away from the closest lateral margin. Regional Lymph Nodes: Total number of lymph nodes examined - 2 Number of sentinel lymph nodes examined - 2 Number of lymph nodes with macrometastases, micrometastases and isolated tumor cells - 0 Treatment effect - no known presurgical therapy. Lymphvascular invasion - not identified Dermal lymphvascular invasion - not applicable Additional Pathologic Findings - fibrocystic changes, adenosis and intraductal hyperplasia with atypia. Changes consistent with previous biopsy site. Ancillary Studies: Previously performed on same tumor ([id number] / [id number]) ER: positive (>95%, strong intensity) RI: positive (>95%, strong intensity) Ktw2gbz: negative (1+) Microcalcifications - present in ductal carcinoma in situ and non-neoplastic tissue. Clinical History - Please make reference to previous specimen ([id number]) right breast, core biopsy with diagnosis of invasive ductal carcinoma and right axillary tissue, core biopsy with diagnosis of benign fibrofatty tissue and lymphoid tissue. Radiologic findings - abnormal right mammogram Pathologic Stage: pT1c pN0(sn) pMx Patient had a postoperative hematoma managed in the ED initially with Gelfoam. When removed 03/24 bled and required urgent surgery with cauterization. Oncotype DX recurrence score 16 indicating 4% risk of distant recurrence at 9 years. No benefit from adjuvant chemotherapy. RADIATION:05/11/20 - 06/07/20 Previous therapy:Arimidex Began after radiation. Stopped June 2020. Pt. followed by Dr. Tam/[facility] in [place]. Pt. did not tolerate oral arimidex. CREATIVE SPECIALIST ordered a hormone inhibitor pellet inserted vaginally. Pt. stopped using vaginal pellets in October 2020. I think I tore my menicus. I had an MRI so we'll see. Appetite:Too good. Energy level:It's actually pretty good. Denies fevers or recent illness. Resp:denies cough or sob Cardiac:denies chest pain/palpitations GI:denies abd pain, n/v, moving bowels regularly, h/o IBS :denies dysuria/hematuria Extrem:R knee pain-recent MRI, occ. stiff joints-tries to walk daily Endo:denies hot flashes Neuro:denies symptoms of neuropathy Skin:denies rashes/lesions Heme:denies bleeding The ROS is otherwise negative. Past medical history, appointments, medications, allergies reviewed. No changes. EXAM: BP 140/79 Pulse 81 Temp 36.5 C (97.7 F) (Temporal) Wt 93 kg (205 lb) BMI 33.54 kg/m APPEARANCE Well appearing, alert, in no acute distress, well-hydrated, well nourished. HEART RRR with normal S1 and S2, no murmurs LUNG clear to auscultation BREAST FEMALE no mass/nodule b/l, scar to R upper/outer/radiation changes LYMPH NODES No cervical lymphadenopathy, No supraclavicular lymphadenopathy, and No axillary lymphadenopathy. ABDOMEN bowel sounds normoactive, soft, non-tender, non-distended, without organomegaly or palpable masses, no tenderness to palpation EXTREMITIES No edema NEURO Awake, alert and oriented x 3, Normal gait, and No involuntary motions. SKIN Skin color, texture, turgor normal, no suspicious rashes or lesions ASSESSMENT/PLAN: 1. Malignant neoplasm of upper-outer quadrant of right breast in female, estrogen receptor positive (HCC) - ICD9: 174.4, V86.0, ICD10: C50.411, Z17.0 pT1c pN0(sln) M0 ER/RI positive, HER2 negative stage IA invasive ductal carcinoma of the right breast. - No new concerning findings on exam. - Pt. did not tolerate arimidex and declined further therapy. - Pts. CREATIVE SPECIALIST ordered anastrozole vaginal pellets. Previously discussed this with Dr. Stuart. Advised pt. again that we do not recommend this. We recommend trying another AI-pt. declined. Pt. stopped using vaginal pellets. - Mammogram due in 2021. Pt. has this done at [facility]. CRE[facility]IVE SPECIALIST orders. - Follow up in 6 months. - Pt. aware to call office with any questions/concerns. The patient indicates understanding of these issues and agrees with the plan. All documentation from previous visit of 06/01/21-Dr. Stuart/myself was copied and pasted, documentation has been reviewed and edited as necessary for today's visit. Mary Rivera APRN.CNP documented in this encounter [facility] 06-26-2021 History of Present illness Narrative Episode Visit Count: 1 Therapist That Will Oversee The Plan Of Care: Elena York Start of Care Date: 06/26/21 Onset Date: 04/28/21 Patient Identified by Name and Date of : Yes REHABILITATION AND SPORTS THERAPY PHYSICAL THERAPY EVALUATION PLAN OF CARE: Assessment: Lai Gomez presents with chief complaint of UE pain and swelling that interferes with nothing . She presents with impairments in tissue tenderness and at risk for lymphedema. Prognosis for therapy is Excellent due to: current objective clinical presentation;good overall health status;good support system/ coping skills . She will benefit from skilled therapy services to meet the goals established for this plan of care as noted below. Goals for Episode of Care: created on 06/26/21 through 08/26/21 Patient / family knowledgeable re: all pertinent aspects of CDT Patient / family independent with home exercise program Patient Goals: To see if I need to do anything else to prevent or decrease swelling. Planned Interventions, Frequency, and Duration: Current Frequency: 1 visit Duration: 8 weeks Total Number of Visits Planned: 1 Planned Treatment Interventions: Therapeutic exercise (88704);Self-nursing home management (24287);Patient/Family/Caregiver Education;Manual therapy (02336) PLAN FOR NEXT VISIT: May initiate MLD and or pursue compression wrapping or garments per symptom progression. Patient demonstrates good understanding of plan of care and treatment. The above goals and plan of care were discussed and agreed upon by patient/family. SUBJECTIVE: Lai Gomez is a 65 year old female seen today for Pt presents wt concern for swelling in R arm. Noticed couple of months ago some pain in both arms, some edema R UE. Pain started in upper arm, but is now into hand. Edema stays pretty consistent. Patient Goals: To see if I need to do anything else to prevent or decrease swelling. Functional Limitations: nothing Prior Level of Function: Independent without limitations Relevant History Right or Left Handed: Right Employment: (computer work) Intake Information: Prescription present Previous Treatment: None Pain: Pain Pain Level: 4 (3-4 most of the time) Pain Location: Upper Arm - Right;Hand - Right Description: Aching;Dull;Sharp;Tingling (very seldom sharp) Frequency: Intermittent Post Treatment Pain Post Treatment Pain Level: No Change PROMIS Scales Higher is Better 05/10/2020 12/27/2020 GH Physical - Score 54.1 54.1 (Very Good) GH Physical - Percentile 66 % 66 % GH Mental - Score 53.3 62.5 (Excellent) GH Mental - Percentile 63 % 89 % T-scores: mean of general population = 50. 5 points is clinically meaningfully difference Percentiles provide an indication of how the patient's score ranks in relation to the general population. Higher percentile rankings indicate better function/quality of life. 50th percentile is the average of the general population and indicates half of respondents had a worse score. T-scores: mean of general population = 50. 5 points is clinically meaningfully difference Percentiles provide an indication of how the patient's score ranks in relation to the general population. Higher percentile rankings indicate better function/quality of life. 50th percentile is the average of the general population and indicates half of respondents had a worse score. OBJECTIVE MEASURES WITH LEVEL OF FUNCTION: Lymphedema Presents with: Swelling;Pain;Decreased knowledge of lymphedema management Lymphedema Contributing Factors: Chemotherapy;Radiation;Lymph Node Removal Skin: (skin remains soft and malleable throughout) Breast Cancer Related Stage of Lymphedema: At Risk- Limb volume 0%-3% greater than baseline Upper Extremity Circumferential Measurements R Thumb (proximal phalanx) (cm): 7 cm R Index Finger (proximal phalanx) (cm): 7 cm R Middle Finger (proximal phalanx) (cm): 7 cm R Ring Finger (proximal phalanx) (cm): 6.5 cm R Small Finger (proximal phalanx) (cm): 6 cm R DPC (cm): 22 cm R Distal Wrist Crease (DWC) (cm): 17 cm R 4 cm above wrist (cm): 20.5 cm R 8 cm above wrist (cm): 23 cm R 12 cm above wrist (cm): 27 cm R 16 cm above wrist (cm): 29.5 cm R 20 cm above wrist (cm): 30.5 cm R 24 cm above wrist (cm): 30 cm (elbow) R 28 cm above wrist (cm): 34 cm R 32 cm above wrist (cm): 36 cm R 36 cm above wrist (cm): 37 cm R 40 cm above wrist (cm): 39 cm L Thumb (proximal phalanx) (cm): 6.5 cm L Index Finger (proximal phalanx) (cm): 7 cm L Middle Finger (proximal phalanx) (cm): 6.5 cm L Ring Finger (proximal phalanx) (cm): 6.5 cm L Small Finger (proximal phalanx) (cm): 5.5 cm L DPC (cm): 21 cm L Distal Wrist Crease (DWC) (cm): 18 cm L 4 cm above wrist (cm): 21 cm L 8 cm above wrist (cm): 24 cm L 12 cm above wrist (cm): 27.5 cm L 16 cm above wrist (cm): 29 cm L 20 cm above wrist (cm): 30 cm L 24 cm above wrist (cm): 30.5 cm (elbow) L 28 cm above wrist (cm): 34 cm L 32 cm above wrist (cm): 35.5 cm L 36 cm above wrist (cm): 37 cm L 40 cm above wrist (cm): 38 cm Affected Arm : Right Arm Calculate Volume : Yes R Upper Extremity Volume: 2896.05 L Upper Extremity Volume: 2899.73 Difference in Volume: -3.68 Difference in % : -0.13 Education: Education Learning Preferences: Demonstration;Explanation Barriers: None Learning/educational needs: Home exercise program;Plan of Care;Lymphedema Program Education Provided: Yes, see treatment interventions for education provided Education Provided To: Patient Education Mode/Type: Demonstration;Explanation/Discus kassie;Literature/Printed Materials;Performance Response to Education/Teach Back: States/Identifies;Return Demonstration TREATMENT: PT Treatment Interventions: Therapeutic Exercise;Self-Half-Way Management Evaluation Therapeutic Exercise: 1: *Instructed in UE Decongestive Exercises Skilled Intervention: Patient was educated in proper exercise technique and purpose for exercises. Skilled judgment was provided in selection of appropriate interventions. Provided written instruction for home exercise program to facilitate proper performance and compliance. Correct performance of therapeutic exercises was facilitated with verbal and visual cuing. Patient education as noted. Self-Half-Way Management: 1: Lymphedema education including skin care/infection prevention, decongestive exercises, MLD, compression garments and signs/symptoms of progression. Skilled Intervention: Skilled judgment in the selection of proper modification for activity of daily living/home management based on clinical presentation, deficits, and needs. Educated the patient regarding recommendations and provided written instruction to facilitate compliance. Reviewed patient specific diagnosis in relation to activities of daily living/home management. Billing * Evaluation Low Complexity: 1 Unit Therapeutic Exercise Treatment Minutes: 12 Self-Care/Home Management Treatment Minutes: 8 Total Treatment Time Minutes (timed and untimed codes) : 40 Elena York PT documented in this encounter [facility] Evaluation note Diagnosis Arm swelling- Primary Swelling of limb Malignant neoplasm of upper-outer quadrant of right breast in female, estrogen receptor positive (HCC) documented in this encounter [facility] noteNo assessment information availableWPeoples [facility] Work Phone: Evaluation note* Diagnosis Malignant neoplasm of upper-outer quadrant of right breast in female, estrogen receptor positive (HCC)- Primary documented in this encounter [facility] note* Diagnosis Malignant neoplasm of upper-outer quadrant of right breast in female, estrogen receptor positive (HCC)- Primary documented in this encounter [facility] note* Diagnosis Malignant neoplasm of upper-outer quadrant of right breast in female, estrogen receptor positive (HCC)- Primary documented in this encounter [facility] note* Diagnosis Onset Date Resolution Status Maxillary sinusitis acute [facility] Work Phone: Evaluation note* Diagnosis Encounter for follow-up surveillance of breast cancer- Primary Unspecified follow-up examination Personal history of breast cancer Personal history of malignant neoplasm of breast documented in this encounter [facility] for referral (narrative)No reason for referral information availableWPeoples Hospital Work Phone: Chief Complaint Chief Complaint Description Start Date lower back pain Preliminary chief co mplaint data, not yet signed by the author as of Instructions Instruction Description Start Date Please follow-up with Primar y Care Physician or Automation Technician for treatment or adjustment of medication regarding elevated blood pressure.Patient advised to follow-up with Primary Care Physician for BMI management. Advance Directives No Advanced Directives Records Found Advance Directive Response Recorded Date/ Time Advance Directives No September 25 10:26am Living Will No January 12 10:08am Power of Banking Consultant No January 12, 2021 10:08am Advance Directive Response Recorded Date/ Time Advance Directives No September 25 10:26am Assessments There may be information available, but it has not been provided by the sender. Review of System There may be information available, but it has not been provided by the sender. Family History No Family History Records Found Relationship Condition Age at Onset Recorded Date/T bucky mother Malignant neoplasm of breast 67 History of Present Illness There may be information available, but it has not been provided by the sender. Summary Purpose Chief Complaint and Reason for Visit Chief Complaint CERVICAL DDD. PT HAS RX Chief Complaint 2 GABE/ 2 ORDERS SCREENING Chief Complaint CHRONIC SINUSITIS Chief Complaint CHRONIC SINUSITIS 2 DRS/ 2 ORDERS Chief Complaint CHRONIC SINUSITIS 2 DRS/ 2 ORDERS RIGHT KNEE PRE OP ARLINE PROTOCAL Chief Complaint CHRONIC SINUSITIS 2 DRS/ 2 ORDERS RIGHT KNEE PRE OP ARLINE PROTOCAL SCREENING Chief Complaint SINUS INFECTION Reason for Visit Maxillary sinusitis Additional Source Comments Reason for Visit (unrecogniz ed section and content) Reason For Visit Description New - 1st visit with practice Preliminary reason f or visit data, not yet signed by the author as of lower back pain Reason Comments PT Eval Specialty Diagnoses / Procedures Referred By Contac t Referred To Contact [facility] Diagnoses Malignant neoplasm of upper-outer quadrant of right breast in female, estrogen receptor positive (HCC) Arm swelling Procedures CONSULT TO PHYSICAL THERAPY PHYSICAL THERAPY EVALUATION HIGH COMPLEX 45 MINS Mary Rivera, VAN.LOG STACKER OPERATOR [address] [place] [address] [facility] [place] [address] [place] [address] Referral ID Status Reason Start Date Expiration Date V isits Requested Visits Authorized [id number] Authorized 04/01/2021 03/31/2022 20 20 Reason Comments Established Patient INFORMATION SOURCE (unrecogn ized section and content) DATE CREATED AUTHOR 09/17/2020 [facility] ([place]) DATE CREATED AUTHOR AUTHOR'S ORGANIZ ATION 12/19/2023 [facility] DATE CREATED AUTHOR AUTHOR'S ORGANIZ ATION 01/28/2025 [facility] Source Comments (unrecognize d section and content) In the event this informatio n is protected by the Federal Confidentiality of Alcohol and Drug Abuse Patient Records regulations: The Federal rules restrict any use of the information to criminally investigate or prosecute any alcohol or drug abuse patient.[facility] the event this information is protected by the Federal Confidentiality of Alcohol and Drug Abuse Patient Records regulations: The Federal rules restrict any use of the information to criminally investigate or prosecute any alcohol or drug abuse patient.[facility] the event this information is protected by the Federal Confidentiality of Alcohol and Drug Abuse Patient Records regulations: The Federal rules restrict any use of the information to criminally investigate or prosecute any alcohol or drug abuse patient.[facility] the event this information is protected by the Federal Confidentiality of Alcohol and Drug Abuse Patient Records regulations: The Federal rules restrict any use of the information to criminally investigate or prosecute any alcohol or drug abuse patient.[facility] Center[facility] the event this information is protected by the Federal Confidentiality of Alcohol and Drug Abuse Patient Records regulations: The Federal rules restrict any use of the information to criminally investigate or prosecute any alcohol or drug abuse patient.[facility] Care Teams (unrecognized sec tion and content) Loss Prevention Lead Relationship Specialty Start Date End Date Madeline Mccarthy [address] [place] [address] PCP - General Family Practice 01/03/21 Song Rodriguez MD, [address] [place], [place] [address] Physician Radiation Oncology 05/05/20 Laila Payton RN Specialty Analysis Consultant Oncology 06/30/20 Loss Prevention Lead Relationship Specialty Start Date End Date Madeline Mccarthy [address] [place], [place] [id number] PCP - General Family Practice 01/03/21 Song Rodriguez MD, [address] [place], [place] [address] Physician Radiation Oncology 05/05/20 Laila Payton RN Specialty Analysis Consultant Oncology 06/30/20 Team Status: Active Member Role Status Dates Dr. Eddie Chappell MD Family Provider Active Dr. Madeline Mccarthy MD Primary Care Provider Active Team Status: Inactive Member Role Status Dates Dr. Madeline Mccarthy MD Primary Care Provider Active Dr. Mario Thomas DO Attending Provider, Referrin g Provider Active Team Status: Inactive Member Role Status Dates Dr. Madeline Mccarthy MD Primary Care Provider Active LINK PEDROZA Attending Provider, Referring Provid er Active Team Status: Inactive Member Role Status Dates Dr. Madeline Mccarthy MD Primary Care Prov ider, Attending Provider, Referring Provider Active Loss Prevention Lead Relationship Specialty Start Date End Date Madeline Mccarthy MD [address] [place] Teresa [place], [place] [id number] PCP - General Family Medicine 01/03/21 Song Rodriguez MD, [address] [place] [address] Physician Radiation Oncology 05/05/20 Laila Payton, RN Specialty Analysis Consultant Oncology 06/30/20 Mary Rivera, MEDICAL AUDITOR.LOG STACKER OPERATOR [address] [place] [address] Hematology/Oncology 11/26/22 Team Status: Inactive Member Role Status Dates Dr. Madeline Mccarthy MD Primary Care Prov ider, Attending Provider, Referring Provider Active Dr. Mario Thomas DO Other Provider Active Team Status: Inactive Member Role Status Dates Dr. Madeline Mccarthy MD Primary Care Provider Active Dr. Quirino Savage MD Attending Provider, Referring P rovider Active Loss Prevention Lead Relationship Specialty Start Date End Date Madeline Mccarthy MD [address] [place] [address] PCP - General Family Medicine 01/03/21 Song Rodriguez MD [address] [place] [address] Physician Radiation Oncology 05/05/20 Laila Payton, RN Specialty Analysis Consultant Oncology 06/30/20 Mary Rivera, MEDICAL AUDITOR.LOG STACKER OPERATOR [address] [place] [address] Hematology/Oncology 11/26/22 Team Status: Inactive Member Role Status Dates Dr. Madeline Mccarthy MD Primary Care Provider, Referrin g Provider Active Haroon Barbosa RETAIL LINK ANALYST, RETAIL LINK ANALYST-C Attending Provider Active Loss Prevention Lead Relationship Specialty Start Date End Date Madeline Mccarthy MD [address] [place] [address] PCP - General Family Medicine 01/03/21 Song Rodriguez MD [address] [place] [id number] Physician Radiation Oncology 05/05/20 Laila Payton RN Specialty Analysis Consultant Oncology 06/30/20 Mary Rivera APRN.CNP [address] [place] [id number] Hematology/Oncology 11/26/22 Team Status: Inactive Member Role Status Dates Dr. Madeline Mccarthy MD Primary Care Provider Active Start: April 10, 2024 End: April 10, 2024 Jesica Maza NP-C Attending Provider Active Start: April 10, 2024 End: April 10, 2024 Jesica Maza NP-Lida Referring Provider Active Start: April 10, 2024 End: April 10, 2024 Team Status: Inactive Member Role Status Dates Dr. Madeline Mccarthy MD Primary Care Provider Active Start: June 18, 2024 End: June 18, 2024 Jesica Maza NP-Lida Attending Provider Active Start: June 18, 2024 End: June 18, 2024 Jesica Maza NP-C Referring Provider Active Start: June 18, 2024 End: June 18, 2024 Team Status: Inactive Member Role Status Dates Dr. Madeline Mccarthy MD Primary Care Provider Active Start: September 14, 2024 End: September 14, 2024 GAGE Cox Attending Provider Active Start: September 14, 2024 End: September 14, 2024 GAGE Cox Referring Provider Active Start: September 14, 2024 End: September 14, 2024 Goals (unrecognized section and content) Goals may be documented in a n alternate sectionGoals may be documented in an alternate sectionGoals may be documented in an alternate sectionGoals may be documented in an alternate sectionGoals may be documented in an alternate sectionGoals may be documented in an alternate sectionGoals may be documented in an alternate sectionGoals may be documented in an alternate sectionGoals may be documented in an alternate sectionGoals may be documented in an alternate sectionGoals may be documented in an alternate sectionGoals may be documented in an alternate section FOR RECORDS PERTAINING TO PATIENTS WHO ARE OR HAVE BEEN ENROLLED IN A CHEMICAL DEPENDENCY/SUBSTANCEABUSE PROGRAM, SOME INFORMATION MAY BE OMITTED. This clinical summary was aggregated from multiple sources. Caution should be exercised in using it in the provision of clinical care. This summary normalizes information from multiple sources, and as a consequence, information in this document may materially change the coding, format and clinical context of patient data. In addition, data may be omitted in some cases. CLINICAL DECISIONS SHOULD BE BASED ON THE PRIMARY CLINICAL RECORDS. [facility] [employer] [facility]. provides no warranty or guarantee of the accuracy or completeness of information in this document.
== END | disposition home or self-care (01) ==
LOC: OPBI 13:08
PROVIDERS: PCP Family Medicine; Referring Provider Specialist; Visit Provider Specialist
DX: Z12.31 Encounter for screening mammogram for malignant neoplasm of breast (principal)
CPT/HCPCS: 77063; 77067